=== PATIENT | female | born 1935 | race Caucasian/White ===

== ENCOUNTER → 2019-01-09 | Outpatient (CLI) | payer MEDICARE ==
--- NOTE | 2019-01-09 14:57 | CT ---
EXAMINATION TYPE: CT ChestAbdPelvis w con DATE OF EXAM: 01/09/2019 COMPARISON: CT abdomen and pelvis July 22, 2009 attempted though skip imaging is noted making susana rison difficult. HISTORY: Pleural scarring. Abdominal pain. 50lb weight loss. CT DLP: 808 mGycm. Automated Exposure Control for Dose Reduction was Utilized. CONTRAST: CT scan of the thorax, abdomen and pelvis is performed with IV Contrast, patient injected with 80 mL of Isovue 300. FINDINGS: LUNGS: There is bibasilar linear scarring and/or atelectasis, left basilar findings improved from philip or study. There is thick walled cavitary left upper lobe lesion measuring 2.5 x 2.3 cm axial image 17 x 4.2 cm pericardial mention coronal image 46. Obxr-yl-vzzvffiu biapical pleural/parenchymal scarrin g is seen. No pleural effusion is noted bilaterally. MEDIASTINUM: There are no greater than 1 cm hilar or mediastinal lymph nodes. No pericardial effusi on is seen. Ascending aorta measures up to 4.3 cm in diameter axial image 34. Heart size is upper head its of normal. There is heterogeneous enlarged left thyroid with probable greater than 1 cm nodule ax ial image 10. Follow-up advised. OTHER: No additional significant abnormality is seen. LIVER/GB: No significant abnormality is appreciated. PANCREAS: No significant abnormality is seen. SPLEEN: No significant abnormality is seen. ADRENALS: No significant abnormality is seen. KIDNEYS: Their symmetric cortical medullary uptake and excretion from both kidneys but moderate to se yodit right-sided hydronephrosis due to obstructing mid to distal ureter 6 mm calculus axial image 93. There is additional linear 5 mm calculus lower pole right kidney anteriorly axial image 30. No left- sided renal calculi or hydronephrosis. There is simple appearing 1 cm cyst laterally midpole of the l eft kidney axial image 26 series 7. BOWEL: Oral contrast reaches level of transverse colon. There is no suspicious small or large bowel dilatation. Diverticula in the sigmoid colon are present. No CT evidence for acute diverticulitis. GENITAL ORGANS: Uterus is surgically absent or markedly atrophic. LYMPH NODES: No greater than 1cm abdominal or pelvic lymph nodes are appreciated. OSSEOUS STRUCTURES: S-shaped scoliosis is present. OTHER: [id number]-vc-[id number] calcified plaque of aorta extends into branch vessels. There is grade 1 retro listhesis L2 on L3. There is inferior disc extrusion L2-L3 level extending to mid L3 vertebral body l evel sagittal image 53. There is grade 1 anterolisthesis of L5 on S1 with bilateral pars defect L5 le luis fernando noted. IMPRESSION: 1. There is 6 mm obstructing mid to distal right ureter calculus causing moderate to severe right-oscar ed hydronephrosis but no delayed excretion. Advise urology referral. 2. Thick-walled cavitary 4.2 cm lesion left upper lobe. Differential includes infectious process or p ulmonary abscess. Differential also includes neoplasm such as squamous cell carcinoma or metastatic d isease. Other etiologies not excluded. Strict clinical correlation advised. 3. Suspicious greater than 1 cm left thyroid nodule, advise thyroid ultrasound to further evaluate an d characterize. 4. There is 4.3 cm aneurysm of ascending aorta.
== END | disposition home or self-care (01) ==
LOC: RADCTMAIN 12:35
PROVIDERS: ATTEND Family Medicine
DX: N13.2 Hydronephrosis with renal and ureteral calculous obstruction (principal); I71.4 Abdominal aortic aneurysm, without rupture
CPT/HCPCS: 82565; 84520; 71260; 74177; 36415; Q9967

== ENCOUNTER 2019-02-02 07:19 | Day surgery (SDC) | payer MEDICARE ==
[2019-01-29 10:52] VITALS: BMI 18.7
[~2019-02-02 07:19] MED LIST: LACTATED RINGERS 1,000 ML IV SCH; LIDOCAINE 1% 20 ML VIAL (10MG/ML) FOR IV START INTRADERMA PRN
[2019-02-02 07:58] VITALS: TEMP 97.9
[2019-02-02] MEDS ORDERED: PROPOFOL 10 MG/ML 20 ML VIAL IV ONE (09:01)
[2019-02-02] MEDS ORDERED: LIDOCAINE 1% INJ 10MG/ML (20 ML MDV) ONE (09:01)
--- NOTE | 2019-02-02 09:36 | P.PCN ---
Date of Procedure: 02/02/19 Procedure(s) Performed: Procedure: Esophagogastroduodenoscopy and biopsy. Preoperative diagnosis: Epigastric pain and dysphagia. Postoperative diagnosis: 1. Small sliding hiatal hernia with no obvious esophagitis or complicated reflux disease. 2. Mild gastritis and duodenitis. 3. Multiple biopsies obtained from the duodenum, antrum and esophagus. Preparation sedation: Was provided by anesthesia. Brief clinical history: The patient is an 83-year-old female who was evaluated in the office earlier this month regarding postprandial abdominal pains and abnormal weight loss. The patient has history of rectal bleeding and her last colonoscopy was in July 2016 that showed sigmoid diverticulosis and internal hemorrhoids. She had history of COPD and her symptoms have been worse lately. She had pneumonia last summer and since then she said she has no appetite and has been complaining of pain in her abdomen. No difficulty swallowing but does not eat because it could cause of pain in her stomach. Having less frequent bowel movements due to decreased oral intake. CT of the abdomen was done last month that showed a 4.3 cm ascending aortic aneurysm, left thyroid nodule, left side 4.2 cm thick wall upper lobe lung cavitary lesion and right sided 6 mm ureteral stone and moderate to severe hydronephrosis. This evaluation is to assess for upper GI pathology. Procedure: With the patient on her left lateral decubitus position and after informed consent and adequate sedation, I passed the Olympus-GIF H190 video upper endoscope through the cricopharyngeus down the esophagus. GE junction was at 40 cm from the incisors and there was a small sliding hiatal hernia but no obvious esophagitis or complicated reflux disease. The endoscope was then passed into the stomach which was insufflated with air and inspected in detail including the retroflex view in the cardia. There was some mottling and erythema in the antrum but no ulcers or erosions. Pyloric channel did not show any ulcers. Duodenal bulb, post bulbar area and descending duodenum showed some erythema and minimal friability. I obtained biopsies from the duodenum, antrum and esophagus then the endoscope was withdrawn. The patient tolerated the procedure well. Plan: The patient was reassured. Will await biopsy results and make further plans based on her course and biopsy results. She is following with you with this week regarding the CT findings. We will make further plans based on her biopsy results as well.
[2019-02-02 09:38] VITALS: RESP 18
[2019-02-02 09:39] VITALS: BP 131/79; PULSE 71
== END 2019-02-02 10:15 | disposition home or self-care (01) ==
LOC: ORWHC2ENDO 07:19
DX: K29.80 Duodenitis without bleeding (principal); K21.0 Gastro-esophageal reflux disease with esophagitis; K31.9 Disease of stomach and duodenum, unspecified; K44.9 Diaphragmatic hernia without obstruction or gangrene; R63.4 Abnormal weight loss; I71.2 Thoracic aortic aneurysm, without rupture; N13.2 Hydronephrosis with renal and ureteral calculous obstruction; J45.909 Unspecified asthma, uncomplicated; R63.0 Anorexia; Z68.1 Body mass index [BMI] 19.9 or less, adult; I10 Essential (primary) hypertension; E78.5 Hyperlipidemia, unspecified; R06.09 Other forms of dyspnea; K57.30 Diverticulosis of large intestine without perforation or abscess without bleeding; K64.8 Other hemorrhoids; Z79.51 Long term (current) use of inhaled steroids; Z79.899 Other long term (current) drug therapy
CPT/HCPCS: 88305; 43239; J2001; J2704

== ENCOUNTER → 2019-03-23 | Outpatient (CLI) | payer MEDICARE ==
--- NOTE | 2019-03-24 03:29 | CT ---
EXAMINATION TYPE: CT chest w con DATE OF EXAM: 03/23/2019 COMPARISON: 01/09/2019 and 11/12/2006 HISTORY: 83-year-old female nonspecific abnormal finding of lung field, Shortness of breath. TECHNIQUE: Contiguous axial scanning of the chest after the administration of 80ml mL of Isovue 300. Coronal/sagittal reconstructions performed. CT DLP: 112.3mGycm. Automatic exposure control utilized for a dose reduction. FINDINGS: Heterogeneously enhancing left thyroid lobe nodule seems slightly larger now measuring 2.5 cm versus 2.3 cm on 01/09/2019. Thyroid ultrasound recommended to further evaluate. Heart upper limits of normal in size without pericardial effusion. Redemonstrated ascending aortic aneurysm of 4.3 cm. Consistent shortness of branching anatomy. No thoracic lymphadenopathy by CT size criteria. Redemonstrated pleural parenchymal scarring along the posterior aspect of the upper lobes. At the site of previous cavitary change peripheral left upper lobe, there is residual spiculated and bandlike thickening measuring 1.8 x 0.9 cm more superiorly, axial image 13 (versus 2.3 x 1.2 cm, prev iously) and 1.4 x 1.2 cm more inferiorly at the site of previous cavity (versus 2.5 x 2.3 cm, previou sly). Scattered tiny 3 to 4 mm pulmonary nodules are present in the mid lungs, on the left on image 27, 30, and 36 and on the right on images 32 and 33. Mild to moderate mid and lower lung bronchial wall thickening. Stable bandlike areas of subpleural scarring in the lower lobes. No pleural effusion or new consolida tion. Visualized upper abdomen shows interval resolution of the previously seen right-sided hydronephrosis. Bones: Dextroconvex scoliotic curvature of the thoracic spine. IMPRESSION: 1. Residual spiculated and bandlike thickening in the peripheral left upper lobe at the site of previ ous cavitary change. Given the overall decrease in size, residual scar is suspected. Additional 6 mon th follow-up recommended to reassess. 2. A few scattered new 3 and 4 mm mid lung pulmonary nodules may represent small infectious/inflammat ory foci. These should also be reassessed at the 6 month follow-up. 3. Slight enlargement of the solid nodule in the left thyroid lobe now measuring 2.5 cm. Dedicated th yroid ultrasound is advised. 4. Stable 4.3 cm ascending aortic aneurysm.
== END | disposition home or self-care (01) ==
LOC: RADCTMAIN 14:15
PROVIDERS: ATTEND Internal Medicine
DX: I71.2 Thoracic aortic aneurysm, without rupture (principal); R91.8 Other nonspecific abnormal finding of lung field
CPT/HCPCS: 82565; 84520; 71260; 36415; Q9967

== ENCOUNTER → 2019-04-01 | Outpatient (CLI) | payer MEDICARE ==
--- NOTE | 2019-04-01 08:43 | US ---
EXAMINATION TYPE: US thyroid st tissue head/neck DATE OF EXAM: 04/01/2019 COMPARISON: CLINICAL HISTORY: E04.[address] showed thyroid nodule. No previous ultrasound of thyroid GLAND SIZE: Right Lobe: 4.3 x 1.4 x 2.2 cm Overall Parenchyma: heterogenous Left Lobe: 4.2 x 2.8 x 2.8 cm Overall Parenchyma: homogeneous Isthmus Thickness: 0.3 cm NODULES RIGHT: # of nodules measured on right: 2-- Multiple subcentimeter nodules seen. Largest measured. 1. 0.7 X 0.7 x 0.6 cm hypoechoic solid nodule at the mid pole with well-defined margins. This nodu le is wider than tall and shows intranodular vascularity. Prior size: No prior 2. 0.8 X 0.7 x 0.7 cm isoechoic solid nodule at the lower pole with well-defined margins. This nodu le is tall as wide and shows no intranodular vascularity. Prior size: No prior LEFT: # of nodules measured on left: 1 1. 3.0 X 2.5 x 2.6 cm solid nodule at the mid pole with well-defined margins. This nodule is talle r than wide and shows intranodular vascularity. No prior ISTHMUS: # of nodules measured in the isthmus: 0 Bilateral neck scanned, no evidence of lymphadenopathy. IMPRESSION: Heterogeneous thyroid tissue suggestive of thyroiditis. Dominant 3 cm left thyroid nodule noted.
== END | disposition home or self-care (01) ==
LOC: RADUSWWP 07:50
PROVIDERS: ATTEND Internal Medicine
DX: E04.1 Nontoxic single thyroid nodule (principal)
CPT/HCPCS: 76536

== ENCOUNTER → 2019-05-14 | Outpatient (CLI) | payer MEDICARE ==
[2019-05-14 09:59] LABS: HCT 38.2 % (34.0-46.0); HGB 12.3 gm/dL (11.4-16.0); MCH 29.8 pg (25.0-35.0); MCHC 32.3 g/dL (31.0-37.0); MCV 92.3 fL (80.0-100.0); Mean Platelet Volume 6.9; Platelet Count 281 k/uL (150-450); RBC 4.14 m/uL (3.80-5.40); RDW 14.5 % (11.5-15.5); WBC 6.7 k/uL (3.8-10.6)
[2019-05-14 16:11] LABS: African American GFR (CKD) 80.1 (60.0-200.0); Albumin 3.6 g/dL (3.80-4.90); Albumin/Globulin Ratio 1.89 (1.60-3.17); Anion Gap 8.8 mmol/L (4.00-12.00); BUN/Creat Ratio 26.25 Ratio (12.00-20.00); Carbon Dioxide 26.2 mmol/L (21.6-31.8); Globulin 1.9 g/dL (1.6-3.3); Non-African American GFR(CKD) 69.1 (60.0-200.0); Potassium 4.1 mmol/L (3.5-5.5); Total Bilirubin 0.4 mg/dL (0.2-1.2); Total Protein 5.5 g/dL (6.2-8.2)
[2019-05-14 18:41] LABS: ACTH 19.3 pg/mL (0.00-45.99)
== END | disposition home or self-care (01) ==
LOC: LABWHC1 09:17
PROVIDERS: ATTEND Internal Medicine Endocrinology, Diabetes & Metabolism
DX: N20.0 Calculus of kidney (principal); R63.4 Abnormal weight loss
CPT/HCPCS: 36415; 80053; 82024; 82533; 82607; 83970; 84439; 84443; 84445; 84480; 85027

== ENCOUNTER 2020-11-21 14:02 | Observation (INO) | payer MEDICARE ==
[2020-11-21] MEDS ORDERED: SODIUM CHLORIDE 0.9% 1,000 ML IV STA ×2 (14:12)
[2020-11-21] MEDS ORDERED: MAGNESIUM SULFATE-D5W PMX 1 GM in DEXTROSE/WATER 1 100ML.BAG IVPB STA (14:12)
[2020-11-21] MEDS ORDERED: IPRATROPIUM-ALBUTEROL 3 ML NEB INHALATION STA (14:12)
[2020-11-21] MEDS ORDERED: methylPREDNISolone SOD SUCCI 125 MG/2 ML VIAL IV STA (14:12)
--- NOTE | 2020-11-21 14:27 | ED ---
SOB HPI - General Chief Complaint: Shortness of Breath Stated Complaint: SOB Time Seen by Provider: 11/21/20 14:02 Source: patient, RN notes reviewed Mode of arrival: EMS Limitations: no limitations - History of Present Illness Initial Comments: This is a 85-year-old female with a history of asthma who presents by EMS with complaints of shortness breath or past 4 days. Is getting progressively worse not better similar exertional dyspnea he states his neck a any benefit from her home medication. No overt chest pain she's had decreased oral intake. She has had no overt fevers chills or sweats. MD Complaint: shortness of breath - Related Data Home Medications Medication Instructions Recorded Confirmed Ipratropium-Albuterol Nebulize 3 ml INHALATION RT-QID 11/21/20 11/21/20 [Duoneb 0.5 mg-3 mg/3 ml Soln] Allergies Allergy/AdvReac Type Severity Reaction Status Date / Time No Known Allergies Allergy Verified 11/21/20 16:19 Review of Systems ROS Statement: Those systems with pertinent positive or pertinent negative responses have been documented in the HPI. ROS Other: All systems not noted in ROS Statement are negative. Past Medical History Past Medical History: Asthma, GERD/Reflux, Hyperlipidemia, Hypertension, Pneumonia Additional Past Medical History / Comment(s): states pneumonia May 2018 and had 6 falls since then (states legs just gave out), SOB with activity, Hx of kidney stone, states weight loss due to stomach pain- which has improved. , pt states she stopped all her medications 3 months ago except her inhaler and updraft tx., states she told Dr. Lainez -she is unsure if he heard her -encouraged to call Dr. Lainez to see if she should restart her meds. History of Any Multi-Drug Resistant Organisms: None Reported Past Surgical History: Hysterectomy Past Anesthesia/Blood Transfusion Reactions: No Reported Reaction Past Psychological History: No Psychological Hx Reported Smoking Status: Never smoker Past Alcohol Use History: None Reported Past Drug Use History: None Reported - Past Family History Mother Family Medical History: No Reported History General Exam - General Exam Comments Initial Comments: This is a well-developed well-nourished awake alert oriented 3 female Limitations: no limitations General appearance: alert, anxious, in distress Head exam: Present: atraumatic, normocephalic, normal inspection Eye exam: Present: normal appearance, PERRL, EOMI. Absent: scleral icterus, conjunctival injection, periorbital swelling ENT exam: Present: mucous membranes dry Neck exam: Present: normal inspection, full ROM, other. Absent: tenderness, meningismus, lymphadenopathy Respiratory exam: Present: wheezes, accessory muscle use, decreased breath sounds. Absent: respiratory distress, rales, rhonchi, stridor Cardiovascular Exam: Present: regular rate, normal rhythm, normal heart sounds. Absent: systolic murmur, diastolic murmur, rubs, gallop, clicks GI/Abdominal exam: Present: soft, normal bowel sounds. Absent: distended, tenderness, guarding, rebound, rigid Extremities exam: Present: normal inspection, full ROM, normal capillary refill. Absent: tenderness, pedal edema, joint swelling, calf tenderness Back exam: Present: normal inspection Neurological exam: Present: alert, oriented X3, CN II-XII intact Psychiatric exam: Present: normal affect, normal mood Skin exam: Present: warm, dry, intact, normal color. Absent: rash Course Vital Signs 11/21/20 11/21/20 11/21/20 14:07 14:51 15:00 Temperature 98.2 F Pulse Rate 94 92 90 Respiratory 26 H 28 H Rate Blood Pressure 132/70 115/87 O2 Sat by Pulse 94 L 100 Oximetry 11/21/20 11/21/20 11/21/20 15:04 15:30 16:00 Temperature Pulse Rate 93 99 92 Respiratory 26 H 26 H Rate Blood Pressure 119/66 119/66 O2 Sat by Pulse 99 100 Oximetry 11/21/20 17:00 Temperature 98.2 F Pulse Rate 105 H Respiratory 22 Rate Blood Pressure 125/56 O2 Sat by Pulse 97 Oximetry Medical Decision Making - Medical Decision Making Patient still has some complaints of shortness of breath the x-ray was negative for acute findings the CAT scan was equivocal at did discuss the case with radiologist there is poor visualization of left upper lobe PE Ruled out though it may be artifact. I did discuss this with Dr. Camargo patient will have a ultrasound of the lower extremities done. I did inform her of the possibility of PE. Patient be admitted with inpatient treatment for COPD exacerbation. - Lab Data Result diagrams: 11/21/20 14:37 11/21/20 14:37 Lab Results 11/21/20 11/21/20 11/21/20 Range/Units 14:37 14:37 14:37 WBC 7.4 (3.8-10.6) k/uL RBC 5.04 (3.80-5.40) m/uL Hgb 15.5 (11.4-16.0) gm/dL Hct 44.8 (34.0-46.0) % MCV 88.8 (80.0-100.0) fL MCH 30.7 (25.0-35.0) pg MCHC 34.6 (31.0-37.0) g/dL RDW 13.8 (11.5-15.5) % Plt Count 260 (150-450) k/uL MPV 7.8 Neutrophils % 78 % Lymphocytes % 13 % Monocytes % 5 % Eosinophils % 3 % Basophils % 1 % Neutrophils # 5.7 (1.3-7.7) k/uL Lymphocytes # 1.0 (1.0-4.8) k/uL Monocytes # 0.4 (0-1.0) k/uL Eosinophils # 0.2 (0-0.7) k/uL Basophils # 0.0 (0-0.2) k/uL PT 10.5 (9.0-12.0) sec INR 1.0 (<1.2) APTT 22.0 (22.0-30.0) sec D-Dimer 0.62 H (<0.60) mg/L FEU Sodium 138 (137-145) mmol/L Potassium 4.3 (3.5-5.1) mmol/L Chloride 104 (98-107) mmol/L Carbon Dioxide 23 (22-30) mmol/L Anion Gap 11 mmol/L BUN 18 H (7-17) mg/dL Creatinine 0.77 (0.52-1.04) mg/dL Est GFR (CKD-EPI)AfAm 83 (>60 ml/min/1.73 sqM) Est GFR (CKD-EPI)NonAf 72 (>60 ml/min/1.73 sqM) Glucose 106 H (74-99) mg/dL Lactic Ac Sepsis Rflx Plasma Lactic Acid Jhonathan (0.7-2.0) mmol/L Calcium 9.9 (8.4-10.2) mg/dL Magnesium 1.8 (1.6-2.3) mg/dL Total Bilirubin 1.0 (0.2-1.3) mg/dL AST 23 (14-36) U/L ALT 10 (4-34) U/L Alkaline Phosphatase 71 (38-126) U/L Creatine Kinase 90 (30-135) U/L Troponin I (0.000-0.034) ng/mL NT-Pro-B Natriuret Pep pg/mL Total Protein 7.0 (6.3-8.2) g/dL Albumin 4.2 (3.5-5.0) g/dL Influenza Type A (PCR) (Not Detectd) Influenza Type B (PCR) (Not Detectd) RSV (PCR) (Not Detectd) SARS-CoV-2 (PCR) (Not Detectd) 11/21/20 11/21/20 11/21/20 Range/Units 14:37 14:37 14:37 WBC (3.8-10.6) k/uL RBC (3.80-5.40) m/uL Hgb (11.4-16.0) gm/dL Hct (34.0-46.0) % MCV (80.0-100.0) fL MCH (25.0-35.0) pg MCHC (31.0-37.0) g/dL RDW (11.5-15.5) % Plt Count (150-450) k/uL MPV Neutrophils % % Lymphocytes % % Monocytes % % Eosinophils % % Basophils % % Neutrophils # (1.3-7.7) k/uL Lymphocytes # (1.0-4.8) k/uL Monocytes # (0-1.0) k/uL Eosinophils # (0-0.7) k/uL Basophils # (0-0.2) k/uL PT (9.0-12.0) sec INR (<1.2) APTT (22.0-30.0) sec D-Dimer (<0.60) mg/L FEU Sodium (137-145) mmol/L Potassium (3.5-5.1) mmol/L Chloride (98-107) mmol/L Carbon Dioxide (22-30) mmol/L Anion Gap mmol/L BUN (7-17) mg/dL Creatinine (0.52-1.04) mg/dL Est GFR (CKD-EPI)AfAm (>60 ml/min/1.73 sqM) Est GFR (CKD-EPI)NonAf (>60 ml/min/1.73 sqM) Glucose (74-99) mg/dL Lactic Ac Sepsis Rflx Plasma Lactic Acid Jhonathan 2.1 H* (0.7-2.0) mmol/L Calcium (8.4-10.2) mg/dL Magnesium (1.6-2.3) mg/dL Total Bilirubin (0.2-1.3) mg/dL AST (14-36) U/L ALT (4-34) U/L Alkaline Phosphatase (38-126) U/L Creatine Kinase (30-135) U/L Troponin I <0.012 (0.000-0.034) ng/mL NT-Pro-B Natriuret Pep 411 pg/mL Total Protein (6.3-8.2) g/dL Albumin (3.5-5.0) g/dL Influenza Type A (PCR) (Not Detectd) Influenza Type B (PCR) (Not Detectd) RSV (PCR) (Not Detectd) SARS-CoV-2 (PCR) (Not Detectd) 11/21/20 11/21/20 Range/Units 14:37 15:14 WBC (3.8-10.6) k/uL RBC (3.80-5.40) m/uL Hgb (11.4-16.0) gm/dL Hct (34.0-46.0) % MCV (80.0-100.0) fL MCH (25.0-35.0) pg MCHC (31.0-37.0) g/dL RDW (11.5-15.5) % Plt Count (150-450) k/uL MPV Neutrophils % % Lymphocytes % % Monocytes % % Eosinophils % % Basophils % % Neutrophils # (1.3-7.7) k/uL Lymphocytes # (1.0-4.8) k/uL Monocytes # (0-1.0) k/uL Eosinophils # (0-0.7) k/uL Basophils # (0-0.2) k/uL PT (9.0-12.0) sec INR (<1.2) APTT (22.0-30.0) sec D-Dimer (<0.60) mg/L FEU Sodium (137-145) mmol/L Potassium (3.5-5.1) mmol/L Chloride (98-107) mmol/L Carbon Dioxide (22-30) mmol/L Anion Gap mmol/L BUN (7-17) mg/dL Creatinine (0.52-1.04) mg/dL Est GFR (CKD-EPI)AfAm (>60 ml/min/1.73 sqM) Est GFR (CKD-EPI)NonAf (>60 ml/min/1.73 sqM) Glucose (74-99) mg/dL Lactic Ac Sepsis Rflx Y Plasma Lactic Acid Jhonathan (0.7-2.0) mmol/L Calcium (8.4-10.2) mg/dL Magnesium (1.6-2.3) mg/dL Total Bilirubin (0.2-1.3) mg/dL AST (14-36) U/L ALT (4-34) U/L Alkaline Phosphatase (38-126) U/L Creatine Kinase (30-135) U/L Troponin I (0.000-0.034) ng/mL NT-Pro-B Natriuret Pep pg/mL Total Protein (6.3-8.2) g/dL Albumin (3.5-5.0) g/dL Influenza Type A (PCR) Not Detected (Not Detectd) Influenza Type B (PCR) Not Detected (Not Detectd) RSV (PCR) Not Detected (Not Detectd) SARS-CoV-2 (PCR) Not Detected (Not Detectd) - EKG Data -: EKG Interpreted by Me EKG Comments: Sinus rhythm with PACs rate 86. Interval 184 QRS duration 78 QT since QTC 42/41 left anterior fascicular block no acute ST-T wave changes. - Radiology Data Radiology results: report reviewed (I did review the imaging and report no definite evidence of acute findings on the x-ray.), image reviewed Disposition Clinical Impression: Acute exacerbation of chronic obstructive pulmonary disease Disposition: ADMITTED IP TO THIS HOSP Condition: Fair Referrals: Chaitanya Lainez MD [Primary Care Provider] - 1-2 days
[2020-11-21 14:58] LABS: Albumin 4.2 g/dL (3.5-5.0); Calcium 9.9 mg/dL (8.4-10.2); Magnesium 1.8 mg/dL (1.6-2.3); Potassium 4.3 mmol/L (3.5-5.1)
[2020-11-21 15:04] LABS: Basophils % (A) 1 %; Eosinophils # (A) 0.2 k/uL (0-0.7); Eosinophils % (A) 3 %; HCT 44.8 % (34.0-46.0); HGB 15.5 gm/dL (11.4-16.0); Lymphocytes % (A) 13 %; MCH 30.7 pg (25.0-35.0); MCHC 34.6 g/dL (31.0-37.0); MCV 88.8 fL (80.0-100.0); Mean Platelet Volume 7.8; Monocytes # (A) 0.4 k/uL (0-1.0); Monocytes % (A) 5 %; Neutrophils # (A) 5.7 k/uL (1.3-7.7); Neutrophils % (A) 78 %; Platelet Count 260 k/uL (150-450); RBC 5.04 m/uL (3.80-5.40); RDW 13.8 % (11.5-15.5); WBC 7.4 k/uL (3.8-10.6)
[2020-11-21 15:12] LABS: Prothrombin Time 10.5 sec (9.0-12.0)
[2020-11-21 15:17] LABS: D-Dimer 0.62 mg/L FEU (<0.60)
--- NOTE | 2020-11-21 15:21 | XR ---
EXAMINATION TYPE: XR chest 2V DATE OF EXAM: 11/21/2020 COMPARISON: NONE HISTORY: Shortness of breath TECHNIQUE: Frontal and lateral views of the chest are obtained. FINDINGS: December 02, 2019 Scattered senescent parenchymal changes noted. Hyperinflation compatible with COPD. No evidence for infiltrate. No evidence for atelectasis. Pleural parenchymal reaction seen at the steve ateral lung bases without infiltrate. Heart size is stable. Mediastinal structures are stable and grossly unremarkable. No evidence for hilar prominence. Degenerative changes dorsal spine. IMPRESSION: 1. No evidence for acute pulmonary disease.
[2020-11-21] MEDS ORDERED: LORazepam 2 MG/ML INJ IV STA (16:06)
--- NOTE | 2020-11-21 17:24 | CT ---
EXAMINATION TYPE: CT angio chest DATE OF EXAM: 11/21/2020 4:52 PM COMPARISON: Same day radiograph. CT 03/23/2019. HISTORY: elevated d dimer CT DLP: 236.5 mGycm Automated exposure control for dose reduction was used. CONTRAST: CTA scan of the thorax is performed with IV Contrast, patient injected with 84 mL of Isovue 370, pulm onary embolism protocol. MIP images are created and reviewed. FINDINGS: LUNGS: There are bilateral scattered small nodular opacities. There is no pleural effusion or pneum othorax seen. The tracheobronchial tree is patent. MEDIASTINUM: There is absent contrast opacification of the anterior left upper lobe pulmonary arterie s. The remainder of the bilateral pulmonary arteries are adequately opacified without evidence of emb robyn. There is ectasia of the ascending aorta, measuring up to 4.1 cm. There are no greater than 1 cm hilar or mediastinal lymph nodes. No pericardial effusion is seen. OTHER: Multiple thyroid nodules seen. Otherwise no additional significant abnormality is seen. IMPRESSION: ABSENT CONTRAST OPACIFICATION OF THE ANTERIOR LEFT UPPER LOBE PULMONARY ARTERIES WITH ATYPICAL PATTER N. FINDINGS MAY REPRESENT ARTIFACT VERSUS POSSIBLE CENTRAL PE. RECOMMEND REPEAT CTA STUDY FOR CONFIRM ATION. NONSPECIFIC BILATERAL SCATTERED SMALL NODULAR OPACITIES, WHICH MAY BE CHRONIC. ATTENTION ON FOLLOW-UP . FINDINGS WERE REPORTED TO DR. CORTEZ BY ME AT TIME OF DICTATION. Thyroid nodule, for which further evaluation with nonemergent, outpatient ultrasound may be obtained as indicated. Ascending aorta ectasia.
--- NOTE | 2020-11-21 19:35 | US ---
EXAMINATION TYPE: US venous doppler duplex LE DATE OF EXAM: 11/21/2020 7:17 PM COMPARISON: NONE CLINICAL HISTORY: Elevated d-dimer, calf pain, shortness of breath. Elevated D Dimer, calf pain, shor tness of breath. Poor historian. SIDE PERFORMED: Bilateral TECHNIQUE: The lower extremity deep venous system is examined utilizing real time linear array sonog kathleen with graded compression, doppler sonography and color-flow sonography. VESSELS IMAGED: Common Femoral Vein Deep Femoral Vein Greater Saphenous Vein * Femoral Vein Popliteal Vein Small Saphenous Vein * Proximal Calf Veins (* superficial vessels) Right Leg: No evidence of DVT in veins imaged at this time from prox calf veins to CFV/GSV. Left Leg: There appears to be a color defect and lack of color flow in portions of the femoral vein and the popliteal vein. Femoral vein appears to be very thin. The femoral vein and popliteal vein nirav ear to compress incompletely in some segments. IMPRESSION: Concern for nonocclusive thrombus within the left superficial femoral and popliteal veins. No evidence of DVT in the right lower extremity.
[2020-11-21] MEDS: SODIUM CHLORIDE 0.9% 1,000 ML IV SCH (19:48)
[2020-11-21] MEDS ORDERED: IPRATROPIUM-ALBUTEROL 3 ML NEB INHALATION SCH (20:00)
[2020-11-21] MEDS: methylPREDNISolone SOD SUCCI 125 MG/2 ML VIAL IV SCH (23:25)
[2020-11-21] MEDS ORDERED: IPRATROPIUM-ALBUTEROL 3 ML NEB INHALATION PRN (23:57)
[2020-11-22] MEDS: SODIUM CHLORIDE 0.9% 1,000 ML IV SCH (03:53)
[2020-11-22] MEDS: methylPREDNISolone SOD SUCCI 125 MG/2 ML VIAL IV SCH ×2 (05:46→11:21)
[2020-11-22] MEDS: IPRATROPIUM-ALBUTEROL 3 ML NEB INHALATION SCH ×2 (07:15→11:00)
[2020-11-22] MEDS ORDERED: ENOXAPARIN 60 MG/0.6 ML SYRINGE SQ STA (11:45)
[2020-11-22] MEDS ORDERED: LORATADINE-PSEUDOEPH 5-120 MG 1 EACH TAB.ER.12H PO SCH (12:00)
--- NOTE | 2020-11-22 13:07 | P.CNPUL ---
History of Present Illness Consult date: 11/22/20 Reason for consult: dyspnea History of present illness: 85-year-old female patient came into the emergency department yesterday because of history of shortness of breath. The patient was progressively getting worse and for that reason she decided to come into the hospital. No chest pain. No fever. No chills. No sweats. The patient has severe COPD and she has had multiple episodes of COPD exacerbation. She is known to have coronary artery disease and hyperlipidemia. She also has been followed up through our office for a pulmonary nodule. CT chest was done in March 2019 showing residual spiculated peripheral left upper lobe had site of previous cavitary and no biopsy was performed and this was being monitored in the office on outpatient basis. Pre- bronchodilation therapy bronchodilation FEV1 is in order of 67% of predicted In the ED, the patient's COVID 19 testing came back negative. A chest x-ray was done and a chest x-ray showed no acute abnormalities. Subsequently, the patient was given a CT angiogram nodular opacities. At the same time there was absence contrast and anterior left upper lobe pulmonary artery and this obviously raises the concern for pulmonary embolism. The Doppler of the lower extremities showed no evidence of DVT on the right, the left leg appeared to have a defect and portions of the femoral vein and in the vein. The femoral vein appears to be very thin. The femoral vein and popliteal vein appeared to be incomplete compressible the potential femoral and popliteal veins. Review of Systems Constitutional: Denies chills, Denies fever Eyes: denies as per HPI, denies blurred vision, denies bulging eye, denies decreased vision, denies diplopia, denies discharge, denies dry eye, denies irritation, denies itching, denies pain, denies photophobia, denies loss of peripheral vision, denies loss of vision, denies tunnel vision/blind spots Ears: deny: decreased hearing, ear discharge, earache, tinnitus Ears, nose, mouth and throat: Reports as per HPI Breasts: absent: as per HPI, change in shape, gynecomastia, masses, nipple discharge, pain, skin changes, swelling Cardiovascular: Reports decreased exercise tolerance Respiratory: Reports dyspnea Gastrointestinal: Reports as per HPI Genitourinary: Reports as per HPI Menstruation: Reports as per HPI Musculoskeletal: Reports as per HPI Musculoskeletal: absent: ankle pain, ankle stiffness, ankle swelling Integumentary: Reports as per HPI Neurological: Reports as per HPI Psychiatric: Reports as per HPI Endocrine: Reports as per HPI Hematologic/Lymphatic: Reports as per HPI Allergic/Immunologic: Reports as per HPI Past Medical History Past Medical History: Asthma, COPD, GERD/Reflux, Hyperlipidemia, Hypertension, Pneumonia (Venous history of pneumonia from May 2018) Additional Past Medical History / Comment(s): Thyroid nodule, abdominal aortic aneurysm, COPD, nephrolithiasis, COPD/asthma, hypertension, acid reflux History of Any Multi-Drug Resistant Organisms: None Reported Past Surgical History: Hysterectomy Past Anesthesia/Blood Transfusion Reactions: No Reported Reaction Past Psychological History: No Psychological Hx Reported Smoking Status: Never smoker Past Alcohol Use History: None Reported Past Drug Use History: None Reported - Past Family History Mother Family Medical History: No Reported History Medications and Allergies Home Medications Medication Instructions Recorded Confirmed Type Budesonide-Formot 160-4.5 Mcg 1 puff INHALATION BID #1 inhaler 11/22/20 Rx [Symbicort 160-4.5 Mcg Inhaler] Ipratropium-Albuterol Nebulize 3 ml INHALATION RT-QID #120 neb 11/22/20 Rx [Duoneb 0.5 mg-3 mg/3 ml Soln] Loratadine-Pseudoeph 5-120 mg 1 tab PO Q12HR #10 tab 11/22/20 Rx [Claritin-D 12 Hour] Rivaroxaban [Xarelto Starter Pack] 0 mg PO DIRECTED 30 Days #1 pack 11/22/20 Rx predniSONE 10 mg PO DAILY #30 tab 11/22/20 Rx Allergies Allergy/AdvReac Type Severity Reaction Status Date / Time No Known Allergies Allergy Verified 11/21/20 16:19 Physical Exam Vitals: Vital Signs Temp Pulse Pulse Resp BP BP Pulse Ox 11/22/20 11:11 90 11/22/20 11:00 88 11/22/20 07:26 97.4 F L 91 14 133/78 97 11/22/20 07:25 90 11/22/20 07:15 90 97 11/22/20 02:00 98 F 88 17 118/76 96 11/22/20 01:25 85 18 11/21/20 20:00 98 F 89 18 117/71 97 11/21/20 18:32 98 F 89 18 117/71 97 11/21/20 18:00 98 F 101 H 22 126/89 95 11/21/20 17:00 98.2 F 105 H 22 125/56 97 11/21/20 16:00 92 26 H 119/66 100 11/21/20 15:30 99 26 H 119/66 99 11/21/20 15:04 93 11/21/20 15:00 90 28 H 115/87 100 11/21/20 14:51 92 11/21/20 14:07 98.2 F 94 26 H 132/70 94 L Intake and Output 11/21/20 11/22/20 11/22/20 22:59 06:59 14:59 Intake Total 1340 800 Balance 1340 800 Intake: Intake, IV Titration 800 800 Amount Sodium Chloride 0.9% 1, 800 800 000 ml @ 100 mls/hr IV . Q10H [facility] Rx#:[id number] Oral 540 Other: Voiding Method Toilet Toilet # Voids 2 1 Weight 55.338 kg The patient appeared well nourished and normally developed. Vital signs as documented. Head exam is unremarkable. No scleral icterus or corneal arcus noted. Neck is without jugular venous distension, thyromegaly, or carotid bruits. Carotid upstrokes are brisk bilaterally. Lungs are clear to auscultation and percussion. Cardiac exam reveals the PMI to be normally sized and situated. Rhythm is regular. First and second heart sounds normal. No murmurs, rubs or gallops. Abdominal exam reveals normal bowel sounds, no masses, no organomegaly and no aortic enlargement. Extremities are nonedematous and both femoral and pedal pulses are normal.Examination of the skin revealed no evidence of significant rashes, suspicious appearing nevi or other concerning lesions.Neurologically, the patient is awake and alert and the patient does not have any focal neurological deficit. Cranial nerves are essentially intact. Results - Laboratory Findings CBC and BMP: 11/21/20 14:37 11/21/20 14:37 ABG WBC 7.4 k/uL (3.8-10.6) 11/21/20 14:37 RBC 5.04 m/uL (3.80-5.40) 11/21/20 14:37 Hgb 15.5 gm/dL (11.4-16.0) 11/21/20 14:37 Hct 44.8 % (34.0-46.0) 11/21/20 14:37 MCV 88.8 fL (80.0-100.0) 11/21/20 14:37 MCH 30.7 pg (25.0-35.0) 11/21/20 14:37 MCHC 34.6 g/dL (31.0-37.0) 11/21/20 14:37 RDW 13.8 % (11.5-15.5) 11/21/20 14:37 Plt Count 260 k/uL (150-450) 11/21/20 14:37 MPV 7.8 11/21/20 14:37 Neutrophils % 78 % 11/21/20 14:37 Lymphocytes % 13 % 11/21/20 14:37 Monocytes % 5 % 11/21/20 14:37 Eosinophils % 3 % 11/21/20 14:37 Basophils % 1 % 11/21/20 14:37 Neutrophils # 5.7 k/uL (1.3-7.7) 11/21/20 14:37 Lymphocytes # 1.0 k/uL (1.0-4.8) 11/21/20 14:37 Monocytes # 0.4 k/uL (0-1.0) 11/21/20 14:37 Eosinophils # 0.2 k/uL (0-0.7) 11/21/20 14:37 Basophils # 0.0 k/uL (0-0.2) 11/21/20 14:37 PT 10.5 sec (9.0-12.0) 11/21/20 14:37 INR 1.0 (<1.2) 11/21/20 14:37 APTT 22.0 sec (22.0-30.0) 11/21/20 14:37 D-Dimer 0.62 mg/L FEU (<0.60) H 11/21/20 14:37 Sodium 138 mmol/L (137-145) 11/21/20 14:37 Potassium 4.3 mmol/L (3.5-5.1) 11/21/20 14:37 Chloride 104 mmol/L (98-107) 11/21/20 14:37 Carbon Dioxide 23 mmol/L (22-30) 11/21/20 14:37 Anion Gap 11 mmol/L 11/21/20 14:37 BUN 18 mg/dL (7-17) H 11/21/20 14:37 Creatinine 0.77 mg/dL (0.52-1.04) 11/21/20 14:37 Est GFR (CKD-EPI)AfAm 83 (>60 ml/min/1.73 sqM) 11/21/20 14:37 Est GFR (CKD-EPI)NonAf 72 (>60 ml/min/1.73 sqM) 11/21/20 14:37 Glucose 106 mg/dL (74-99) H 11/21/20 14:37 Lactic Ac Sepsis Rflx Y 11/21/20 15:14 Plasma Lactic Acid Jhonathan 0.7 mmol/L (0.7-2.0) 11/21/20 18:09 Calcium 9.9 mg/dL (8.4-10.2) 11/21/20 14:37 Magnesium 1.8 mg/dL (1.6-2.3) 11/21/20 14:37 Total Bilirubin 1.0 mg/dL (0.2-1.3) 11/21/20 14:37 AST 23 U/L (14-36) 11/21/20 14:37 ALT 10 U/L (4-34) 11/21/20 14:37 Alkaline Phosphatase 71 U/L (38-126) 11/21/20 14:37 Creatine Kinase 90 U/L (30-135) 11/21/20 14:37 Troponin I <0.012 ng/mL (0.000-0.034) 11/21/20 14:37 NT-Pro-B Natriuret Pep 411 pg/mL 11/21/20 14:37 Total Protein 7.0 g/dL (6.3-8.2) 11/21/20 14:37 Albumin 4.2 g/dL (3.5-5.0) 11/21/20 14:37 Influenza Type A (PCR) Not Detected (Not Detectd) 11/21/20 14:37 Influenza Type B (PCR) Not Detected (Not Detectd) 11/21/20 14:37 RSV (PCR) Not Detected (Not Detectd) 11/21/20 14:37 SARS-CoV-2 (PCR) Not Detected (Not Detectd) 11/21/20 14:37 PT/INR, D-dimer PT 10.5 sec (9.0-12.0) 11/21/20 14:37 INR 1.0 (<1.2) 11/21/20 14:37 D-Dimer 0.62 mg/L FEU (<0.60) H 11/21/20 14:37 Abnormal lab findings: Abnormal Labs 11/21/20 11/21/20 11/21/20 14:37 14:37 14:37 D-Dimer 0.62 H BUN 18 H Glucose 106 H Plasma Lactic Acid Jhonathan 2.1 H* - Diagnostic Findings Chest x-ray: image reviewed CT scan - chest: image reviewed Assessment and Plan Plan: 1 questionable pulmonary embolism involving the left upper lobe pulmonary artery branch in addition to DVT involving the left superficial femoral and popliteal veins seem to be completely compressible on Doppler of the lower extremity. As such, there is an obvious consented for a thrombus within the left lower extremity and possible pulmonary embolism explaining the patient shortness of breath and the patient was started on anticoagulation. The patient is currently on Lovenox and this will be transitioned to Xarelto start this back. 2 COPD 3 chronic left upper lobe scar, nonmalignant 4 hypertension 5 hyperlipidemia 6 history of thyroid goiter/nodule 7 Nephrolithiasis 8 history of falls 9 acid reflux 10 History of pneumonia back in 2018 Plan Agree on the current management. Continue Xarelto per protocol for DVT and pulmonary embolism. Follow-up with Dr. Freitas in the office regarding her COPD and pulmonary embolism. CAT scan of the chest was reviewed. Hard to say if there is any underlying filling defect and left upper lobe although this is an obvious concern especially the patient has some clotting involving the superficial femoral and popliteal vein on the left. Again anticoagulation for now. Obtain an echocardiogram. ProBNP level is low. D-dimer level is low. We'll follow.
[2020-11-22 13:43] VITALS: BP 126/72; PULSE 104; RESP 17; TEMP 98.3
--- NOTE | 2020-11-22 23:11 | P.HPIM ---
History of Present Illness H&P Date: 11/22/20 Chief Complaint: Short of breath History of presenting complaint: This is a pleasant 84-year-old patient of Dr. lainez from [place]. Patient has not followed up with her personnel security assistant on her family doctor for quite some while. Chronic stable medical conditions include GERD, hyperlipidemia, hypertension, abdominal aortic aneurysm, kidney stones. Patient has progress ively been getting short of breath a few weeks. Increasing wheezing. Denies any fever and chills. Congested. Appetite has been okay. Started on bronchodilators in the ER. Computed tomography scan of the chest was possibly suggested of a PE. Doppler ultrasound was suggestive of DVT in the popliteal vein. Patient did receive Lovenox.. Patient's wheezing is somewhat better this morning. Patient does have nasal congestion. Review of systems: GEN.: Tired EYES: None HEENT: Nasal congestion NECK: None RESPIRATORY: As above CARDIOVASCULAR: None GASTROINTESTINAL: None GENITOURINARY: None MUSCULOSKELETAL: Some joint pains LYMPHATICS: None HEMATOLOGICAL: None PSYCHIATRY: None NEUROLOGICAL: None Past medical history to include: Asthma, GERD, hyperlipidemia, hypertension, thyroid nodule, abdominal aortic aneurysm, kidney stones, Social history: Lives with her . No history of alcohol or smoking. Family history: Reviewed, noncontributory to presentation Physical examination: VITAL SIGNS: 98.2, 94, 26, 132/70, 94% room air GENERAL: BMI 23.8, reclining in bed, not in distress. EYES: Pupils equal. Conjunctiva normal. HEENT: External appearance of nose and ears normal, oral cavity grossly normal. NECK: JVD not raised; masses not palpable. HEART: First and second heart sounds are normal; no edema. LUNGS: Respiratory rate increased,; minimal wheezing. ABDOMEN: Soft, nontender, liver spleen not palpable, no masses palpable. PSYCH: Alert and oriented x3; mood and affect normal. NEUROLOGICAL: Cranial nerves grossly intact; no facial asymmetry, power and sensation grossly intact. MUSCULAR skeletal: Evidence of OA LYMPHATICS: No lymph nodes palpable in the axilla and neck INVESTIGATIONS, reviewed in the clinical context: White count 7.4 hemoglobin 15.5 platelets 260 potassium 4.3- creatinine 0.77 D-dimer 0.62 Lactic acid 2. 1 repeat 0.7 proBNP 411 troponin I less than 0.012 Influenza type A type B, RSV, Coronavirus P/Cr-all not detected EKG tracing personally reviewed by me-normal sinus rhythm nonspecific T-wave changes Chest x-ray film personally reviewed by me-no obvious infiltrate CT angina chest-atypical finding artifact versus possible PE. Venous Doppler-right leg: No DVT. Left leg: Concerns for nonocclusive thrombus within the left superficial femoral and popliteal vein. Assessment: -Possibility of pulmonary embolism. This is a patient because of a pulmonary status does not be very active. There is evidence of possible DVT in the left popliteal vein. And a question about being on the computed tomography scan. Given the clinical picture it is better than anticoagulate the patient. Patient was given Lovenox in the ER. We'll give her Lovenox dose this morning. Follow- up with xarelto starter pack. -Moderate persistent asthma with acute exacerbation. Patient has run out of inhaler, Symbicort. Has not visited a personnel security assistant for some time. Patient was started on bronchodilators , steroids. The patient is responding well. -GERD -Hyperlipidemia -Essential hypertension -Nephrolithiasis-asymptomatic Past Medical History Past Medical History: Asthma, GERD/Reflux, Hyperlipidemia, Hypertension, Pneumonia Additional Past Medical History / Comment(s): states pneumonia May 2018 and had 6 falls since then (states legs just gave out), SOB with activity, Hx of kidney stone, states weight loss due to stomach pain- which has improved. , pt states she stopped all her medications 3 months ago except her inhaler and updraft tx., states she told Dr. Lainez -she is unsure if he heard her -encouraged to call Dr. Lainez to see if she should restart her meds. History of Any Multi-Drug Resistant Organisms: None Reported Past Surgical History: Hysterectomy Past Anesthesia/Blood Transfusion Reactions: No Reported Reaction Past Psychological History: No Psychological Hx Reported Smoking Status: Never smoker Past Alcohol Use History: None Reported Past Drug Use History: None Reported - Past Family History Mother Family Medical History: No Reported History Medications and Allergies Home Medications Medication Instructions Recorded Confirmed Type Budesonide-Formot 160-4.5 Mcg 1 puff INHALATION BID #1 inhaler 11/22/20 Rx [Symbicort 160-4.5 Mcg Inhaler] Ipratropium-Albuterol Nebulize 3 ml INHALATION RT-QID #120 neb 11/22/20 Rx [Duoneb 0.5 mg-3 mg/3 ml Soln] Loratadine-Pseudoeph 5-120 mg 1 tab PO Q12HR #10 tab 11/22/20 Rx [Claritin-D 12 Hour] Rivaroxaban [Xarelto Starter Pack] 0 mg PO DIRECTED 30 Days #1 pack 11/22/20 Rx predniSONE 10 mg PO DAILY #30 tab 11/22/20 Rx Allergies Allergy/AdvReac Type Severity Reaction Status Date / Time No Known Allergies Allergy Verified 11/21/20 16:19 Physical Exam Vitals: Vital Signs Temp Pulse Pulse Resp BP BP Pulse Ox 11/22/20 07:26 97.4 F L 91 14 133/78 97 11/22/20 07:25 90 11/22/20 07:15 90 97 11/22/20 02:00 98 F 88 17 118/76 96 11/22/20 01:25 85 18 11/21/20 20:00 98 F 89 18 117/71 97 11/21/20 18:32 98 F 89 18 117/71 97 11/21/20 18:00 98 F 101 H 22 126/89 95 11/21/20 17:00 98.2 F 105 H 22 125/56 97 11/21/20 16:00 92 26 H 119/66 100 11/21/20 15:30 99 26 H 119/66 99 11/21/20 15:04 93 11/21/20 15:00 90 28 H 115/87 100 11/21/20 14:51 92 11/21/20 14:07 98.2 F 94 26 H 132/70 94 L Intake and Output 11/21/20 11/22/20 11/22/20 22:59 06:59 14:59 Intake Total 1340 800 Balance 1340 800 Intake: Intake, IV Titration 800 800 Amount Sodium Chloride 0.9% 1, 800 800 000 ml @ 100 mls/hr IV . Q10H [facility] Rx#:[id number] Oral 540 Other: Voiding Method Toilet Toilet # Voids 2 1 Weight 55.338 kg Results CBC & Chem 7: 11/21/20 14:37 11/21/20 14:37 Labs: Abnormal Lab Results - Last 24 Hours (Table) 11/21/20 11/21/20 11/21/20 Range/Units 14:37 14:37 14:37 D-Dimer 0.62 H (<0.60) mg/L FEU BUN 18 H (7-17) mg/dL Glucose 106 H (74-99) mg/dL Plasma Lactic Acid Jhonathan 2.1 H* (0.7-2.0) mmol/L Thrombosis Risk Factor Assmnt - Choose All That Apply Any of the Below Risk Factors Present?: No Other Risk Factors: Yes Each Risk Factor Represents 3 Points: Age 75 years or older Other congenital or acquired thrombophilia - If yes, enter type in comment: No Thrombosis Risk Factor Assessment Total Risk Factor Score: 3 Thrombosis Risk Factor Assessment Level: Moderate Risk
--- NOTE | 2020-11-22 23:14 | P.DS ---
Providers Date of admission: 11/21/20 18:13 Expected date of discharge: 11/22/20 Attending physician: Rob Camargo Primary care physician: Chaitanya Lainez MD Hospital Course: Chief Complaint: Short of breath History of presenting complaint: This is a pleasant 84-year-old patient of Dr. lainez from [place]. Patient has not followed up with her employment services director on her family doctor for quite some while. Chronic stable medical conditions include GERD, hyperlipidemia, hypertension, abdominal aortic aneurysm, kidney stones. Patient has progressively been getting short of breath a few weeks. Increasing wheezing. Denies any fever and chills. Congested. Appetite has been okay. Started on bronchodilators in the ER. Computed tomography scan of the chest was possibly suggested of a PE. Doppler ultrasound was suggestive of DVT in the popliteal vein. Patient did receive Lovenox.. Patient's wheezing is somewhat better this morning. Patient does have nasal congestion. Patient computed tomography scan of the chest could not rule out a PE. Doppler ultrasound did show possible DVT of the left popliteal vein. Given that patient is less active because of her asthma exacerbation patient was treated with Lovenox and swished over to xarelto for discharge. Also admitted with moderate persistent asthma acute exacerbation. Responded well to bronchodilators and steroids. Discussed with the patient. Doing much better. We'll follow-up with her PCP in a employment services director. Consultation: Dr. Miller from pulmonary Past medical history to include: Asthma, GERD, hyperlipidemia, hypertension, thyroid nodule, abdominal aortic aneurysm, kidney stones, Social history: Lives with her . No history of alcohol or smoking. Family history: Reviewed, noncontributory to presentation Physical examination: VITAL SIGNS: 98.2, 94, 26, 132/70, 94% room air GENERAL: BMI 23.8, reclining in bed, not in distress. EYES: Pupils equal. Conjunctiva normal. HEENT: External appearance of nose and ears normal, oral cavity grossly normal. NECK: JVD not raised; masses not palpable. HEART: First and second heart sounds are normal; no edema. LUNGS: Respiratory rate increased,; minimal wheezing. ABDOMEN: Soft, nontender, liver spleen not palpable, no masses palpable. PSYCH: Alert and oriented x3; mood and affect normal. NEUROLOGICAL: Cranial nerves grossly intact; no facial asymmetry, power and sensation grossly intact. MUSCULAR skeletal: Evidence of OA LYMPHATICS: No lymph nodes palpable in the axilla and neck INVESTIGATIONS, reviewed in the clinical context: White count 7.4 hemoglobin 15.5 platelets 260 potassium 4.3- creatinine 0.77 D-dimer 0.62 Lactic acid 2. 1 repeat 0.7 proBNP 411 troponin I less than 0.012 Influenza type A type B, RSV, Coronavirus P/Cr-all not detected EKG tracing personally reviewed by me-normal sinus rhythm nonspecific T-wave changes Chest x-ray film personally reviewed by me-no obvious infiltrate CT angina chest-atypical finding artifact versus possible PE. Venous Doppler-right leg: No DVT. Left leg: Concerns for nonocclusive thrombus within the left superficial femoral and popliteal vein. Assessment and plan: -Possibility of pulmonary embolism. This is a patient because of a pulmonary status does not be very active. There is evidence of possible DVT in the left popliteal vein. And a question about being on the computed tomography scan. Given the clinical picture it is better than anticoagulate the patient. Patient was given Lovenox in the ER. We'll give her Lovenox dose this morning. Follow- up with xarelto starter pack. -Moderate persistent asthma with acute exacerbation. Patient has run out of inhaler, Symbicort. Has not visited a employment services director for some time. Patient was started on bronchodilators , steroids. The patient is responding well. -GERD -Hyperlipidemia -Essential hypertension -Nephrolithiasis-asymptomatic Disposition: Home Patient Condition at Discharge: Fair Plan - Discharge Summary Discharge Rx Participant: No New Discharge Prescriptions: New predniSONE 10 mg PO DAILY #30 tab Budesonide-Formot 160-4.5 Mcg [Symbicort 160-4.5 Mcg Inhaler] 1 puff INHALATION BID #1 inhaler Rivaroxaban [Xarelto Starter Pack] 0 mg PO DIRECTED 30 Days #1 pack Loratadine-Pseudoeph 5-120 mg [Claritin-D 12 Hour] 1 tab PO Q12HR #10 tab Continue Ipratropium-Albuterol Nebulize [Duoneb 0.5 mg-3 mg/3 ml Soln] 3 ml INHALATION RT-QID #120 neb Discharge Medication List Budesonide-Formot 160-4.5 Mcg [Symbicort 160-4.5 Mcg Inhaler] 1 puff INHALATION BID #1 inhaler 11/22/20 [Rx] Ipratropium-Albuterol Nebulize [Duoneb 0.5 mg-3 mg/3 ml Soln] 3 ml INHALATION RT-QID #120 neb 11/22/20 [Rx] Loratadine-Pseudoeph 5-120 mg [Claritin-D 12 Hour] 1 tab PO Q12HR #10 tab 11/22/20 [Rx] Rivaroxaban [Xarelto Starter Pack] 0 mg PO DIRECTED 30 Days #1 pack 11/22/20 [Rx] predniSONE 10 mg PO DAILY #30 tab 11/22/20 [Rx] Follow up Appointment(s)/Referral(s): Janet Antunez MD [Family Provider] - 1 Week Chaitanya Lainez MD [Primary Care Provider] - 1-2 days Patient Instructions/Handouts: COPD (Chronic Obstructive Pulmonary Disease) (DC) Activity/Diet/Wound Care/Special Instructions: activity as tolerated heart healthy diet
== END 2020-11-22 14:01 ==
LOC: EC 14:02 → 6NMEDSUR 18:13
PROVIDERS: ADMIT Hospitalist; ATTEND Hospitalist
DX: J45.41 Moderate persistent asthma with (acute) exacerbation (principal); K21.9 Gastro-esophageal reflux disease without esophagitis; E78.5 Hyperlipidemia, unspecified; I10 Essential (primary) hypertension; N20.0 Calculus of kidney; Z91.81 History of falling; T50.916A Underdosing of multiple unspecified drugs, medicaments and biological substances, initial encounter; J44.1 Chronic obstructive pulmonary disease with (acute) exacerbation; I25.10 Atherosclerotic heart disease of native coronary artery without angina pectoris; J98.4 Other disorders of lung; E04.9 Nontoxic goiter, unspecified; Z79.899 Other long term (current) drug therapy; Z87.01 Personal history of pneumonia (recurrent); Z91.128 Patient's intentional underdosing of medication regimen for other reason; Z90.710 Acquired absence of both cervix and uterus; I71.4 Abdominal aortic aneurysm, without rupture; R09.81 Nasal congestion; E04.1 Nontoxic single thyroid nodule; M25.50 Pain in unspecified joint; Z20.822 Contact with and (suspected) exposure to COVID-19; Z20.828 Contact with and (suspected) exposure to other viral communicable diseases; Z91.19 Patient's noncompliance with other medical treatment and regimen; Z79.51 Long term (current) use of inhaled steroids; Z79.01 Long term (current) use of anticoagulants
CPT/HCPCS: 96376 ×2; 96361 ×2; 96372; 96365; 96375; 99285; 36415; 94640 ×3; 94760; 93005; 85379; 83880; 80053; 82550; 83605; 83735; 84484; 85025; 85610; 85730; 87040; 87636; 71046; 93970; 71275; G0378 ×2; J2060; J2930 ×2; J1650; J3475; Q9967

== ENCOUNTER 2020-12-27 13:04 | Observation (INO) | payer MEDICARE ==
[2020-12-27] MEDS ORDERED: methylPREDNISolone SOD SUCCI 125 MG/2 ML VIAL IV STA (13:19)
[2020-12-27] MEDS ORDERED: IPRATROPIUM-ALBUTEROL 3 ML NEB INHALATION STA (13:19)
--- NOTE | 2020-12-27 13:22 | ED ---
General Adult HPI - General Chief complaint: Shortness of Breath Stated complaint: CIARAN Time Seen by Provider: 12/27/20 13:10 Source: patient, EMS, RN notes reviewed Mode of arrival: EMS Limitations: no limitations - History of Present Illness Initial comments: Patient is a pleasant 85-year-old female presenting to the emergency department with difficulty in breathing. Onset of symptoms was a couple of days ago. Patient does have history of similar symptoms previously associated with asthma. Patient does see a specialist for this. Patient denies any cough or fever. No chest pain. Patient does have a little bit of fatigue. No leg pain or leg swelling. Patient is currently taking her blood thinner still. - Related Data Home Medications Medication Instructions Recorded Confirmed Budesonide-Formot 160-4.5 Mcg 1 puff INHALATION RT-BID 12/27/20 12/27/20 [Symbicort 160-4.5 Mcg Inhaler] Rivaroxaban [Xarelto] 2.5 mg PO AC-BID 12/27/20 12/27/20 Previous Rx's Medication Instructions Recorded Ipratropium-Albuterol Nebulize 3 ml INHALATION RT-QID #120 neb 11/22/20 [Duoneb 0.5 mg-3 mg/3 ml Soln] Loratadine-Pseudoeph 5-120 mg 1 tab PO Q12HR #10 tab 11/22/20 [Claritin-D 12 Hour] Allergies Allergy/AdvReac Type Severity Reaction Status Date / Time No Known Allergies Allergy Verified 12/27/20 13:14 Review of Systems ROS Statement: Those systems with pertinent positive or pertinent negative responses have been documented in the HPI. ROS Other: All systems not noted in ROS Statement are negative. Constitutional: Denies: fever Eyes: Denies: eye pain ENT: Denies: ear pain Respiratory: Reports: dyspnea Cardiovascular: Denies: chest pain Endocrine: Reports: fatigue Gastrointestinal: Denies: abdominal pain Genitourinary: Denies: urgency Musculoskeletal: Denies: back pain Skin: Denies: rash Neurological: Denies: weakness Past Medical History Past Medical History: Asthma, GERD/Reflux, Hyperlipidemia, Hypertension, Pneumonia Additional Past Medical History / Comment(s): states pneumonia May 2018 and had 6 falls since then (states legs just gave out), SOB with activity, Hx of kidney stone, states weight loss due to stomach pain- which has improved. , pt states she stopped all her medications 3 months ago except her inhaler and updraft tx., states she told Dr. Lainez -she is unsure if he heard her -encouraged to call Dr. Lainez to see if she should restart her meds. History of Any Multi-Drug Resistant Organisms: None Reported Past Surgical History: Hysterectomy Past Anesthesia/Blood Transfusion Reactions: No Reported Reaction Past Psychological History: No Psychological Hx Reported Smoking Status: Never smoker Past Alcohol Use History: None Reported Past Drug Use History: None Reported - Past Family History Mother Family Medical History: No Reported History General Exam Limitations: no limitations General appearance: alert, in no apparent distress Head exam: Present: normocephalic Eye exam: Present: normal appearance Neck exam: Present: normal inspection Respiratory exam: Present: wheezes, accessory muscle use, decreased breath sounds Cardiovascular Exam: Present: regular rate, normal rhythm GI/Abdominal exam: Present: soft. Absent: tenderness Extremities exam: Present: normal inspection. Absent: pedal edema, calf tenderness Neurological exam: Present: alert Psychiatric exam: Present: normal affect, normal mood Skin exam: Present: normal color Course Vital Signs 12/27/20 12/27/20 12/27/20 13:07 13:26 13:33 Temperature 98.1 F Pulse Rate 91 88 90 Respiratory 18 Rate Blood Pressure 137/82 O2 Sat by Pulse 98 Oximetry 12/27/20 12/27/20 12/27/20 14:00 14:08 14:10 Temperature Pulse Rate 84 90 94 Respiratory 20 Rate Blood Pressure 124/68 O2 Sat by Pulse 95 Oximetry EKG Findings - EKG Comments: EKG Findings:: Normal sinus rhythm with a rate of 84. MA 172. QRS 78. QT 384. QTC 453. Left axis. Left anterior fascicular block. No acute ST change. Medical Decision Making - Medical Decision Making Patient reevaluated with only mild improvement. Dr. Camargo has been paged for admission, he admitted this patient just over 1 month ago. Previously seen Dr. Dahl. Case was discussed with Dr. Camargo, who will admit. - Lab Data Result diagrams: 12/27/20 13:34 12/27/20 13:34 Lab Results 12/27/20 12/27/20 Range/Units 13:34 13:34 WBC 6.9 (3.8-10.6) k/uL RBC 4.62 (3.80-5.40) m/uL Hgb 14.0 (11.4-16.0) gm/dL Hct 41.9 (34.0-46.0) % MCV 90.8 (80.0-100.0) fL MCH 30.4 (25.0-35.0) pg MCHC 33.5 (31.0-37.0) g/dL RDW 13.8 (11.5-15.5) % Plt Count 317 (150-450) k/uL MPV 7.4 Neutrophils % 69 % Lymphocytes % 16 % Monocytes % 6 % Eosinophils % 6 % Basophils % 1 % Neutrophils # 4.8 (1.3-7.7) k/uL Lymphocytes # 1.1 (1.0-4.8) k/uL Monocytes # 0.4 (0-1.0) k/uL Eosinophils # 0.4 (0-0.7) k/uL Basophils # 0.1 (0-0.2) k/uL Sodium 139 (137-145) mmol/L Potassium 4.3 (3.5-5.1) mmol/L Chloride 105 (98-107) mmol/L Carbon Dioxide 26 (22-30) mmol/L Anion Gap 8 mmol/L BUN 14 (7-17) mg/dL Creatinine 0.80 (0.52-1.04) mg/dL Est GFR (CKD-EPI)AfAm 79 (>60 ml/min/1.73 sqM) Est GFR (CKD-EPI)NonAf 69 (>60 ml/min/1.73 sqM) Glucose 100 H (74-99) mg/dL Calcium 9.5 (8.4-10.2) mg/dL Total Bilirubin 0.7 (0.2-1.3) mg/dL AST 19 (14-36) U/L ALT 8 (4-34) U/L Alkaline Phosphatase 81 (38-126) U/L Total Protein 6.2 L (6.3-8.2) g/dL Albumin 3.7 (3.5-5.0) g/dL - Radiology Data Radiology results: image reviewed Disposition Clinical Impression: Acute exacerbation of chronic obstructive pulmonary disease Disposition: ADMITTED IP TO THIS HOSP Is patient prescribed a controlled substance at d/c from ED?: No Decision Time: 13:56
[2020-12-27 13:50] LABS: Basophils # (A) 0.1 k/uL (0-0.2); Basophils % (A) 1 %; Eosinophils # (A) 0.4 k/uL (0-0.7); Eosinophils % (A) 6 %; HCT 41.9 % (34.0-46.0); Lymphocytes # (A) 1.1 k/uL (1.0-4.8); Lymphocytes % (A) 16 %; MCH 30.4 pg (25.0-35.0); MCHC 33.5 g/dL (31.0-37.0); MCV 90.8 fL (80.0-100.0); Mean Platelet Volume 7.4; Monocytes # (A) 0.4 k/uL (0-1.0); Monocytes % (A) 6 %; Neutrophils # (A) 4.8 k/uL (1.3-7.7); Neutrophils % (A) 69 %; Platelet Count 317 k/uL (150-450); RBC 4.62 m/uL (3.80-5.40); RDW 13.8 % (11.5-15.5); WBC 6.9 k/uL (3.8-10.6)
[2020-12-27] MEDS ORDERED: IPRATROPIUM-ALBUTEROL 3 ML NEB INHALATION PRN (13:57)
[2020-12-27] MEDS: IPRATROPIUM-ALBUTEROL 3 ML NEB INHALATION SCH ×2 (14:00→21:47)
--- NOTE | 2020-12-27 14:08 | XR ---
EXAMINATION TYPE: XR chest 2V DATE OF EXAM: 12/27/2020 COMPARISON: 11/21/2020 HISTORY: 85 year-old female shortness of breath, difficulty breathing TECHNIQUE: AP and lateral views FINDINGS: Heart normal size. Aorta and pulmonary vasculature within normal limits. Hyperinflation. No louie con solidation. No pleural effusion seen. Some biapical pleural-parenchymal scarring. IMPRESSION: COPD. No definite acute process.
[2020-12-27 14:10] LABS: Albumin 3.7 g/dL (3.5-5.0); Calcium 9.5 mg/dL (8.4-10.2); Potassium 4.3 mmol/L (3.5-5.1); Total Bilirubin 0.7 mg/dL (0.2-1.3); Total Protein 6.2 g/dL (6.3-8.2)
[2020-12-27 14:28] LABS: INR 1.1 (<1.2); Partial Thromboplastin Time 23.8 sec (22.0-30.0); Prothrombin Time 11.5 sec (9.0-12.0)
[2020-12-27 17:28] LABS: Glucose,Whole Blood 140 mg/dL (75-99)
[2020-12-27] MEDS: RIVAROXABAN 2.5 MG TABLET PO SCH (17:41)
[2020-12-27] MEDS ORDERED: methylPREDNISolone SOD SUCCI 125 MG/2 ML VIAL IV SCH (18:00)
[2020-12-27] MEDS ORDERED: SYMBICORT 160-4.5 MCG INHALER INHALATION SCH (20:00)
[2020-12-27] MEDS: LORATADINE-PSEUDOEPH 5-120 MG 1 EACH TAB.ER.12H PO SCH (20:37)
--- NOTE | 2020-12-27 21:47 | P.HPIM ---
History of Present Illness H&P Date: 12/27/20 Chief Complaint: Short of breath History of presenting complaint: This is a pleasant 84-year-old patient of Dr. rhodes from [place]. Chronic stable medical conditions include GERD, hyperlipidemia, hypertension, abdominal aortic aneurysm, kidney stones. Patient was here in early part of November this year with a suspected pulmonary embolism and left popliteal vein DVT. For which she is on xarelto. Patient for last 2-3 days has been progressively getting increasingly short of breath. Increasing wheezing. At rest. No cough no sputum no fever no chills. Just very tight. The chest. Given bronchodilators. To which she did feel a bit better . Review of systems: GEN.: Tired EYES: None HEENT: None NECK: None RESPIRATORY: As above CARDIOVASCULAR: None GASTROINTESTINAL: None GENITOURINARY: None MUSCULOSKELETAL: joint pains LYMPHATICS: None HEMATOLOGICAL: None PSYCHIATRY: None NEUROLOGICAL: None Past medical history to include: Asthma, GERD, hyperlipidemia, hypertension, thyroid nodule, abdominal aortic aneurysm, kidney stones, left popliteal vein DVT and PE in November 2020 Social history: Lives with her . No history of alcohol or smoking. Family history: Reviewed, noncontributory to presentation Physical examination: VITAL SIGNS: 98.1, 91, 22, 1 3782, 98% on 3 L GENERAL: BMI 21.7, declining in bed, short of breath EYES: Pupils equal. Conjunctiva normal. HEENT: External appearance of nose and ears normal, oral cavity grossly normal. NECK: JVD not raised; masses not palpable. HEART: First and second heart sounds are normal; no edema. LUNGS: Respiratory rate increased, poor air entry, prolonged expiration and wheezing, not able to speak in full sentences ABDOMEN: Soft, nontender, liver spleen not palpable, no masses palpable. PSYCH: Alert and oriented x3; mood and affect slightly anxious NEUROLOGICAL: Cranial nerves grossly intact; no facial asymmetry, power and sensation grossly intact. MUSCULAR skeletal: Evidence of OA LYMPHATICS: No lymph nodes palpable in the axilla and neck INVESTIGATIONS, reviewed in the clinical context: WBC 6.9 hemoglobin 14 platelets 317 potassium 4.3 creatinine 0.8 lactic acid 2.4 Coronavirus [PCR]-not detected EKG tracing personally reviewed by me-normal sinus rhythm Chest x-ray film personally reviewed by me-shows some chronic scarring Assessment and plan: -Moderate persistent asthma with acute exacerbation. Patient to be started on nebulized bronchodilators, inhaled steroids acting beta agonist and IV Solu- Medrol. 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 Consult pulmonary. Past Medical History Past Medical History: Asthma, GERD/Reflux, Hyperlipidemia, Hypertension, Pneumonia Additional Past Medical History / Comment(s): states pneumonia May 2018 and had 6 falls at that time (states legs just gave out), pt currently denies nay falls in the last 6 months. SOB with activity, Hx of kidney stone, states weight loss due to stomach pain- which has improved. History of Any Multi-Drug Resistant Organisms: None Reported Past Surgical History: Hysterectomy Past Anesthesia/Blood Transfusion Reactions: No Reported Reaction Past Psychological History: No Psychological Hx Reported Smoking Status: Never smoker Past Alcohol Use History: None Reported Past Drug Use History: None Reported - Past Family History Mother Family Medical History: No Reported History Medications and Allergies Home Medications Medication Instructions Recorded Confirmed Type Ipratropium-Albuterol Nebulize 3 ml INHALATION RT-QID #120 neb 11/22/20 12/27/20 Rx [Duoneb 0.5 mg-3 mg/3 ml Soln] Loratadine-Pseudoeph 5-120 mg 1 tab PO Q12HR #10 tab 11/22/20 12/27/20 Rx [Claritin-D 12 Hour] Budesonide-Formot 160-4.5 Mcg 1 puff INHALATION RT-BID 12/27/20 12/27/20 History [Symbicort 160-4.5 Mcg Inhaler] Rivaroxaban [Xarelto] 2.5 mg PO AC-BID 12/27/20 12/27/20 History Allergies Allergy/AdvReac Type Severity Reaction Status Date / Time No Known Allergies Allergy Verified 12/27/20 13:14 Physical Exam Vitals: Vital Signs Temp Pulse Pulse Resp BP BP Pulse Ox 12/27/20 20:00 98.0 F 87 18 115/65 95 12/27/20 16:37 98.9 F 91 22 126/84 95 12/27/20 15:00 98.0 F 94 20 118/60 96 12/27/20 14:10 94 12/27/20 14:08 90 20 124/68 95 12/27/20 14:00 84 12/27/20 13:33 90 12/27/20 13:26 88 12/27/20 13:07 98.1 F 91 18 137/82 98 Intake and Output 12/27/20 12/27/20 12/27/20 06:59 14:59 22:59 Intake Total 240 Balance 240 Intake: Oral 240 Other: Voiding Method Bedside Commode # Voids 2 Weight 52.163 kg 52.163 kg Results CBC & Chem 7: 12/27/20 13:34 12/27/20 13:34 Labs: Abnormal Lab Results - Last 24 Hours (Table) 12/27/20 12/27/20 12/27/20 Range/Units 13:34 13:34 17:26 Glucose 100 H (74-99) mg/dL POC Glucose (mg/dL) 140 H (75-99) mg/dL Plasma Lactic Acid Jhonathan 2.4 H* (0.7-2.0) mmol/L Total Protein 6.2 L (6.3-8.2) g/dL Thrombosis Risk Factor Assmnt - Choose All That Apply Any of the Below Risk Factors Present?: Yes Other Risk Factors: Yes Each Risk Factor Represents 3 Points: Age 75 years or older Other congenital or acquired thrombophilia - If yes, enter type in comment: No Thrombosis Risk Factor Assessment Total Risk Factor Score: 3 Thrombosis Risk Factor Assessment Level: Moderate Risk
[2020-12-27 21:58] VITALS: RESP 18
[2020-12-27] MEDS: methylPREDNISolone SOD SUCCI 40 MG/ML 1 ML VIAL IV SCH (22:08)
[2020-12-28] MEDS: IPRATROPIUM-ALBUTEROL 3 ML NEB INHALATION SCH ×3 (01:42→08:03)
[2020-12-28 07:52] VITALS: BP 127/80; TEMP 97.9
[2020-12-28] MEDS ORDERED: FORMOTEROL FUMARATE 20 MCG/2 ML NEBU INHALATION SCH (08:00)
[2020-12-28] MEDS ORDERED: BUDESONIDE 1 MG/2 ML NEBU INHALATION SCH (08:00)
[2020-12-28 08:23] VITALS: PULSE 92
[2020-12-28] MEDS: methylPREDNISolone SOD SUCCI 40 MG/ML 1 ML VIAL IV SCH (08:47)
[2020-12-28] MEDS: RIVAROXABAN 2.5 MG TABLET PO SCH (08:52)
[2020-12-28] MEDS: LORATADINE-PSEUDOEPH 5-120 MG 1 EACH TAB.ER.12H PO SCH (08:52)
--- NOTE | 2020-12-28 22:21 | P.DS ---
Providers Date of admission: 12/27/20 13:57 Expected date of discharge: 12/28/20 Attending physician: Rob Camargo Consults: 12/27/20 13:57 Consult Physician Routine Consulting Provider: Janet Antunez Consult Reason/Comments: dyspnea, copd Do you want consulting provider notified?: Yes Primary care physician: Janet Antunez [facility] Course: Chief Complaint: Short of breath History of presenting complaint: This is a pleasant 84-year-old patient of Dr. lainez from [place]. Chronic stable medical conditions include GERD, hyperlipidemia, hypertension, abdominal aortic aneurysm, kidney stones. Patient was here in early part of November this year with a suspected pulmonary embolism and left popliteal vein DVT. For which she is on xarelto. Patient for last 2-3 days has been progressively getting increasingly short of breath. Increasing wheezing. At rest. No cough no sputum no fever no chills. Just very tight. The chest. Given bronchodilators. To which she did feel a bit better . Admitted with acute asthma exacerbation. Put on nebulized bronchodilators, IV steroids, inhaled steroids. Long-acting inhalers Today-feeling much better. Quite back to baseline. Keep to go home. Discussed with the patient. Past medical history to include: Asthma, GERD, hyperlipidemia, hypertension, thyroid nodule, abdominal aortic aneurysm, kidney stones, left popliteal vein DVT and PE in November 2020 Social history: Lives with her . No history of alcohol or smoking. Family history: Reviewed, noncontributory to presentation Physical examination: VITAL SIGNS: 97.9, 95, 18, 127/80, 96% on 2 L GENERAL: Sitting up in bed, breathing much improved EYES: Pupils equal. Conjunctiva normal. HEENT: External appearance of nose and ears normal, oral cavity grossly normal. NECK: JVD not raised; masses not palpable. HEART: First and second heart sounds are normal; no edema. LUNGS: Respiratory rate normal, improved air entry ABDOMEN: Soft, nontender, liver spleen not palpable, no masses palpable. PSYCH: Alert and oriented x3; mood and affect slightly anxious NEUROLOGICAL: Cranial nerves grossly intact; no facial asymmetry, power and sensation grossly intact. INVESTIGATIONS, reviewed in the clinical context: WBC 6.9 hemoglobin 14 platelets 317 potassium 4.3 creatinine 0.8 lactic acid 2.4 Coronavirus [PCR]-not detected EKG tracing personally reviewed by me-normal sinus rhythm Chest x-ray film personally reviewed by me-shows some chronic scarring Assessment and plan: -Moderate persistent asthma with acute exacerbation. Patient to be started on nebulized bronchodilators, inhaled steroids acting beta agonist and IV Solu- Medrol. Responded well. 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 for which patient is on xarelto -GERD, use Pepcid when necessary -Hyperlipidemia, diet controlled -Essential hypertension, off blood pressure medications -Nephrolithiasis-asymptomatic Disposition: Home Plan - Discharge Summary Discharge Rx Participant: No New Discharge Prescriptions: New predniSONE 10 mg PO DAILY #30 tab Continue Ipratropium-Albuterol Nebulize [Duoneb 0.5 mg-3 mg/3 ml Soln] 3 ml INHALATION RT-QID #120 neb Loratadine-Pseudoeph 5-120 mg [Claritin-D 12 Hour] 1 tab PO Q12HR #10 tab Rivaroxaban [Xarelto] 2.5 mg PO AC-BID Budesonide-Formot 160-4.5 Mcg [Symbicort 160-4.5 Mcg Inhaler] 1 puff INHALATION RT-BID Discharge Medication List Ipratropium-Albuterol Nebulize [Duoneb 0.5 mg-3 mg/3 ml Soln] 3 ml INHALATION RT-QID #120 neb 11/22/20 [Rx] Loratadine-Pseudoeph 5-120 mg [Claritin-D 12 Hour] 1 tab PO Q12HR #10 tab 11/22/20 [Rx] Budesonide-Formot 160-4.5 Mcg [Symbicort 160-4.5 Mcg Inhaler] 1 puff INHALATION RT-BID 12/27/20 [History] Rivaroxaban [Xarelto] 2.5 mg PO AC-BID 12/27/20 [History] predniSONE 10 mg PO DAILY #30 tab 12/28/20 [Rx] Follow up Appointment(s)/Referral(s): Janet Antunez MD [Primary Care Provider] - 01/06/21 10:30 am Chaitanya Lainez MD [REFERRING] - 1 Week Patient Instructions/Handouts: COPD (Chronic Obstructive Pulmonary Disease) (DC) Discharge Disposition: HOME SELF-CARE
== END 2020-12-28 11:42 | disposition home or self-care (01) ==
LOC: EC 13:04 → 6NMEDSUR 13:57
PROVIDERS: ADMIT Hospitalist; ATTEND Hospitalist
DX: J45.41 Moderate persistent asthma with (acute) exacerbation (principal); I27.82 Chronic pulmonary embolism; I82.532 Chronic embolism and thrombosis of left popliteal vein; K21.9 Gastro-esophageal reflux disease without esophagitis; E78.5 Hyperlipidemia, unspecified; I10 Essential (primary) hypertension; E04.1 Nontoxic single thyroid nodule; I71.4 Abdominal aortic aneurysm, without rupture; N20.0 Calculus of kidney; Z79.51 Long term (current) use of inhaled steroids; Z79.01 Long term (current) use of anticoagulants; Z87.01 Personal history of pneumonia (recurrent); Z90.710 Acquired absence of both cervix and uterus; Z20.822 Contact with and (suspected) exposure to COVID-19
CPT/HCPCS: 96376; 96374; 99285; 36415; 94660; 94640 ×4; 93005; 80053; 83605; 84484; 85025; 85610; 85730; 87635; 71046; G0378 ×2; J2920 ×2; J2930

== ENCOUNTER 2021-02-07 10:45 | Emergency (ER) | payer MEDICARE ==
[2021-02-07 10:55] VITALS: BP 115/68; RESP 18; TEMP 98.3
[2021-02-07] MEDS ORDERED: IPRATROPIUM-ALBUTEROL 3 ML NEB INHALATION STA (11:22)
[2021-02-07] MEDS ORDERED: methylPREDNISolone SOD SUCCI 125 MG/2 ML VIAL IV STA (11:22)
--- NOTE | 2021-02-07 11:37 | ED ---
SOB HPI - General Chief Complaint: Shortness of Breath Stated Complaint: COPD Time Seen by Provider: 02/07/21 10:53 Source: patient, EMS Mode of arrival: EMS Limitations: no limitations - History of Present Illness Initial Comments: Patient is an 85-year-old female, with history of COPD, presenting to the emergency department via EMS with complaints of increasing shortness of breath over the past few days. Patient states he tried to get ahold of her patient service representative, Dr. Freitas for steroids however she has been unsuccessful. She states that she really just wants some steroids and wants to go home. She did do an albuterol treatment at home and had a DuoNeb and the EMS prior to arrival. She does report improvement in her symptoms. As any chest pains, no fevers or chills, no nausea or vomiting no abdominal pain. She has no further complaints at this time. Upon arrival to the ER, her vitals are stable. - Related Data Home Medications Medication Instructions Recorded Confirmed Budesonide-Formot 160-4.5 Mcg 1 puff INHALATION RT-BID 12/27/20 12/27/20 [Symbicort 160-4.5 Mcg Inhaler] Rivaroxaban [Xarelto] 2.5 mg PO AC-BID 12/27/20 12/27/20 Previous Rx's Medication Instructions Recorded Ipratropium-Albuterol Nebulize 3 ml INHALATION RT-QID #120 neb 11/22/20 [Duoneb 0.5 mg-3 mg/3 ml Soln] Loratadine-Pseudoeph 5-120 mg 1 tab PO Q12HR #10 tab 11/22/20 [Claritin-D 12 Hour] predniSONE 10 mg PO DAILY #30 tab 02/07/21 Allergies Allergy/AdvReac Type Severity Reaction Status Date / Time No Known Allergies Allergy Verified 12/27/20 13:14 Review of Systems ROS Statement: Those systems with pertinent positive or pertinent negative responses have been documented in the HPI. ROS Other: All systems not noted in ROS Statement are negative. Past Medical History Past Medical History: Asthma, COPD, GERD/Reflux, Hyperlipidemia, Hypertension, Pneumonia Additional Past Medical History / Comment(s): states pneumonia May 2018 and had 6 falls at that time (states legs just gave out), pt currently denies nay falls in the last 6 months. SOB with activity, Hx of kidney stone, states weight loss due to stomach pain- which has improved. History of Any Multi-Drug Resistant Organisms: None Reported Past Surgical History: Hysterectomy Past Anesthesia/Blood Transfusion Reactions: No Reported Reaction Past Psychological History: No Psychological Hx Reported Smoking Status: Never smoker Past Alcohol Use History: None Reported Past Drug Use History: None Reported - Past Family History Mother Family Medical History: No Reported History General Exam - General Exam Comments Initial Comments: GENERAL: Patient is well-developed and well-nourished. Patient is nontoxic and in no acute distress. HEAD: Atraumatic, normocephalic. EYES: Pupils equal round and reactive to light, extraocular movements intact, sclera anicteric, conjunctiva are normal. Eyelids were unremarkable. ENT: TMs normal, nares patent, oropharynx clear without exudates. Moist mucous membranes. NECK: Normal range of motion, supple without lymphadenopathy or JVD. LUNGS: Unlabored respirations. Scattered wheezes throughout. HEART: Regular rate and rhythm without murmurs, rubs or gallops. ABDOMEN: Soft, nontender, normoactive bowel sounds. No guarding, no rebound. No masses appreciated. : Deferred MUSCULOSKELETAL: Normal extremities with adequate strength and normal range of motion, no pitting or edema. No clubbing or cyanosis. NEUROLOGICAL: Patient is alert and oriented x 3. Motor and sensory are also intact. Cranial nerves II through XII grossly intact. Symmetrical smile. Normal speech, normal gait. PSYCH: Normal mood, normal affect. SKIN: Warm, Dry, normal turgor, no rashes or lesions noted. Limitations: no limitations Course Vital Signs 02/07/21 02/07/21 02/07/21 10:47 10:55 12:13 Temperature 98.3 F Pulse Rate 96 85 Respiratory 18 18 18 Rate Blood Pressure 115/68 O2 Sat by Pulse 95 Oximetry 02/07/21 12:20 Temperature Pulse Rate 88 Respiratory 18 Rate Blood Pressure O2 Sat by Pulse Oximetry Medical Decision Making - Medical Decision Making Patient is an 85-year-old female with history of COPD, presenting for increased shortness of breath over the last few days. No fevers. She is simply requesting steroids, she tried to get ahold of her patient service representative for this but was unable to. Her vital signs are stable upon arrival. She did receive a DuoNeb in the EMS prior to arrival. She does report improvement in her symptoms. Her exam reveals scattered wheezes throughout. Patient was given So mook-Medrol IV, another DuoNeb treatment. She does report improvement in her symptoms and states she wants to go home. Patient will be given a prescription for prednisone, she'll follow up with Dr. Freitas this week. She is in agreement with this plan of care and she is stable for discharge. Return parameters were discussed with the patient and she verbalized understanding. Case discussed with Dr. Renae. Disposition Clinical Impression: Acute exacerbation of chronic obstructive pulmonary disease Disposition: HOME SELF-CARE Condition: Stable Instructions (If sedation given, give patient instructions): COPD (Chronic Obstructive Pulmonary Disease) (ED) Additional Instructions: Please return to the Emergency Department if symptoms worsen or any other concerns. Take steroids as prescribed. Follow-up with your patient service representative. Prescriptions: predniSONE 10 mg PO DAILY #30 tab Is patient prescribed a controlled substance at d/c from ED?: No Referrals: Chaitanya Lainez MD [Primary Care Provider] - 1-2 days Janet Antunez MD [STAFF PHYSICIAN] - 1-2 days Time of Disposition: 12:29
[2021-02-07 12:21] VITALS: PULSE 88
== END 2021-02-07 12:51 | disposition home or self-care (01) ==
LOC: EC 10:45
DX: J44.1 Chronic obstructive pulmonary disease with (acute) exacerbation (principal); I10 Essential (primary) hypertension; E78.5 Hyperlipidemia, unspecified; K21.9 Gastro-esophageal reflux disease without esophagitis; Z79.51 Long term (current) use of inhaled steroids; Z79.52 Long term (current) use of systemic steroids
CPT/HCPCS: 94640; 99284; 96374; J2930

== ENCOUNTER 2021-06-20 07:28 | Emergency (ER) | payer MEDICARE ==
[2021-06-20] MEDS ORDERED: SODIUM CHLORIDE 0.9% 1,000 ML IV STA (07:33)
--- NOTE | 2021-06-20 07:44 | ED ---
SOB HPI - General Stated Complaint: SOB Time Seen by Provider: 06/20/21 07:28 Source: patient, EMS, RN notes reviewed Mode of arrival: EMS - History of Present Illness Initial Comments: This is a 85-year-old female with a history of COPD who states she woke up this morning and was short of breath. She does have some chest heaviness along with it. She called 911 after her home medication failed to help her with breathing. She is brought in by EMS she was given DuoNeb treatment as well as steroids. She did get some improvement still feels short of breath approximation did improve. She states she is still wheezing. No palpitations she denies any fevers chills nausea vomiting sweats or phlegm production with any coughing. MD Complaint: shortness of breath - Related Data Home Medications Medication Instructions Recorded Confirmed Budesonide-Formot 160-4.5 Mcg 2 puff INHALATION RT-BID 12/27/20 06/20/21 [Symbicort 160-4.5 Mcg Inhaler] Rivaroxaban [Xarelto] 20 mg PO AC-BRKFST 06/20/21 06/20/21 predniSONE 5 mg PO AC-BRKFST 06/20/21 06/20/21 Previous Rx's Medication Instructions Recorded predniSONE [Deltasone] 20 mg PO BID #10 tab 06/20/21 Allergies Allergy/AdvReac Type Severity Reaction Status Date / Time No Known Allergies Allergy Verified 06/20/21 09:18 Review of Systems ROS Statement: Those systems with pertinent positive or pertinent negative responses have been documented in the HPI. ROS Other: All systems not noted in ROS Statement are negative. Past Medical History Past Medical History: Asthma, COPD, GERD/Reflux, Hyperlipidemia, Hypertension, Pneumonia Additional Past Medical History / Comment(s): states pneumonia May 2018 and had 6 falls at that time (states legs just gave out), pt currently denies nay falls in the last 6 months. SOB with activity, Hx of kidney stone, states weight loss due to stomach pain- which has improved. History of Any Multi-Drug Resistant Organisms: None Reported Past Surgical History: Hysterectomy Past Anesthesia/Blood Transfusion Reactions: No Reported Reaction Past Psychological History: No Psychological Hx Reported Smoking Status: Never smoker Past Alcohol Use History: None Reported Past Drug Use History: None Reported - Past Family History Mother Family Medical History: No Reported History General Exam - General Exam Comments Initial Comments: This is a well-developed well-nourished awake alert oriented 3 female General appearance: alert, anxious Head exam: Present: atraumatic, normocephalic, normal inspection Eye exam: Present: normal appearance, PERRL, EOMI. Absent: scleral icterus, conjunctival injection, periorbital swelling ENT exam: Present: mucous membranes dry Neck exam: Present: normal inspection, full ROM, other. Absent: tenderness, meningismus, lymphadenopathy Respiratory exam: Present: wheezes, decreased breath sounds (No stridor JVD or bruits). Absent: respiratory distress, rales, rhonchi, stridor Cardiovascular Exam: Present: regular rate, normal rhythm, normal heart sounds. Absent: systolic murmur, diastolic murmur, rubs, gallop, clicks GI/Abdominal exam: Present: soft, normal bowel sounds. Absent: distended, tenderness, guarding, rebound, rigid, bruit, pulsatile mass Extremities exam: Present: normal inspection, full ROM, normal capillary refill. Absent: tenderness, pedal edema, joint swelling, calf tenderness Back exam: Present: normal inspection Neurological exam: Present: alert, oriented X3, CN II-XII intact Psychiatric exam: Present: normal affect, normal mood Skin exam: Present: warm, dry, intact, normal color. Absent: rash Course Vital Signs 06/20/21 06/20/21 06/20/21 07:54 09:24 09:33 Temperature 97.6 F Pulse Rate 78 82 81 Respiratory 24 20 20 Rate Blood Pressure 149/80 O2 Sat by Pulse 97 Oximetry 06/20/21 10:24 Temperature Pulse Rate Respiratory 18 Rate Blood Pressure O2 Sat by Pulse 96 Oximetry Medical Decision Making - Medical Decision Making The patient did receive a further nebulizer treatment with improvement she is able tolerate ambulation well she would like to go home he was offered admission. Return parameters discussed she will be discharged we placed on a short course of steroids she does have her inhalation medicine at home. - Lab Data Result diagrams: 06/20/21 07:56 06/20/21 07:56 Lab Results 06/20/21 06/20/21 06/20/21 Range/Units 07:56 07:56 07:56 WBC 9.3 (3.8-10.6) k/uL RBC 4.79 (3.80-5.40) m/uL Hgb 14.9 (11.4-16.0) gm/dL Hct 44.5 (34.0-46.0) % MCV 92.9 (80.0-100.0) fL MCH 31.1 (25.0-35.0) pg MCHC 33.4 (31.0-37.0) g/dL RDW 13.9 (11.5-15.5) % Plt Count 296 (150-450) k/uL MPV 7.2 Neutrophils % 63 % Lymphocytes % 22 % Monocytes % 5 % Eosinophils % 7 % Basophils % 1 % Neutrophils # 5.9 (1.3-7.7) k/uL Lymphocytes # 2.1 (1.0-4.8) k/uL Monocytes # 0.5 (0-1.0) k/uL Eosinophils # 0.7 (0-0.7) k/uL Basophils # 0.1 (0-0.2) k/uL PT 10.9 (9.0-12.0) sec INR 1.0 (<1.2) APTT 23.5 (22.0-30.0) sec D-Dimer 0.18 (<0.60) mg/L FEU Sodium 139 (137-145) mmol/L Potassium 3.8 (3.5-5.1) mmol/L Chloride 105 (98-107) mmol/L Carbon Dioxide 27 (22-30) mmol/L Anion Gap 7 mmol/L BUN 30 H (7-17) mg/dL Creatinine 0.86 (0.52-1.04) mg/dL Est GFR (CKD-EPI)AfAm 73 (>60 ml/min/1.73 sqM) Est GFR (CKD-EPI)NonAf 63 (>60 ml/min/1.73 sqM) Glucose 108 H (74-99) mg/dL Plasma Lactic Acid Jhonathan (0.7-2.0) mmol/L Calcium 9.7 (8.4-10.2) mg/dL Magnesium 1.9 (1.6-2.3) mg/dL Total Bilirubin 0.4 (0.2-1.3) mg/dL AST 21 (14-36) U/L ALT 11 (4-34) U/L Alkaline Phosphatase 63 (38-126) U/L Creatine Kinase 92 (30-135) U/L Troponin I (0.000-0.034) ng/mL Total Protein 6.2 L (6.3-8.2) g/dL Albumin 3.8 (3.5-5.0) g/dL 06/20/21 06/20/21 Range/Units 07:56 07:56 WBC (3.8-10.6) k/uL RBC (3.80-5.40) m/uL Hgb (11.4-16.0) gm/dL Hct (34.0-46.0) % MCV (80.0-100.0) fL MCH (25.0-35.0) pg MCHC (31.0-37.0) g/dL RDW (11.5-15.5) % Plt Count (150-450) k/uL MPV Neutrophils % % Lymphocytes % % Monocytes % % Eosinophils % % Basophils % % Neutrophils # (1.3-7.7) k/uL Lymphocytes # (1.0-4.8) k/uL Monocytes # (0-1.0) k/uL Eosinophils # (0-0.7) k/uL Basophils # (0-0.2) k/uL PT (9.0-12.0) sec INR (<1.2) APTT (22.0-30.0) sec D-Dimer (<0.60) mg/L FEU Sodium (137-145) mmol/L Potassium (3.5-5.1) mmol/L Chloride (98-107) mmol/L Carbon Dioxide (22-30) mmol/L Anion Gap mmol/L BUN (7-17) mg/dL Creatinine (0.52-1.04) mg/dL Est GFR (CKD-EPI)AfAm (>60 ml/min/1.73 sqM) Est GFR (CKD-EPI)NonAf (>60 ml/min/1.73 sqM) Glucose (74-99) mg/dL Plasma Lactic Acid Jhonathan 1.9 (0.7-2.0) mmol/L Calcium (8.4-10.2) mg/dL Magnesium (1.6-2.3) mg/dL Total Bilirubin (0.2-1.3) mg/dL AST (14-36) U/L ALT (4-34) U/L Alkaline Phosphatase (38-126) U/L Creatine Kinase (30-135) U/L Troponin I 0.014 (0.000-0.034) ng/mL Total Protein (6.3-8.2) g/dL Albumin (3.5-5.0) g/dL - EKG Data -: EKG Interpreted by Me EKG shows normal: sinus rhythm EKG Comments: Sinus rhythm with premature supraventricular complexes rate 76 CA interval 200 QRS duration 84 QT since QTC 408/459 that anterior fascicular block noted - Radiology Data Radiology results: report reviewed (Imaging reviewed no evidence of acute findings), image reviewed Disposition Clinical Impression: Acute exacerbation of chronic obstructive pulmonary disease Disposition: HOME SELF-CARE Condition: Good Instructions (If sedation given, give patient instructions): COPD (Chronic Obstructive Pulmonary Disease) (ED) Prescriptions: predniSONE [Deltasone] 20 mg PO BID #10 tab Is patient prescribed a controlled substance at d/c from ED?: No Referrals: Chaitanya Lainez MD [Primary Care Provider] - 1-2 days
[2021-06-20 07:59] VITALS: TEMP 97.6
[2021-06-20 08:10] LABS: Basophils # (A) 0.1 k/uL (0-0.2); Basophils % (A) 1 %; Eosinophils # (A) 0.7 k/uL (0-0.7); Eosinophils % (A) 7 %; HCT 44.5 % (34.0-46.0); HGB 14.9 gm/dL (11.4-16.0); Lymphocytes # (A) 2.1 k/uL (1.0-4.8); Lymphocytes % (A) 22 %; MCH 31.1 pg (25.0-35.0); MCHC 33.4 g/dL (31.0-37.0); MCV 92.9 fL (80.0-100.0); Mean Platelet Volume 7.2; Monocytes # (A) 0.5 k/uL (0-1.0); Monocytes % (A) 5 %; Neutrophils # (A) 5.9 k/uL (1.3-7.7); Neutrophils % (A) 63 %; Platelet Count 296 k/uL (150-450); RBC 4.79 m/uL (3.80-5.40); RDW 13.9 % (11.5-15.5); WBC 9.3 k/uL (3.8-10.6)
[2021-06-20 08:20] LABS: Albumin 3.8 g/dL (3.5-5.0); Calcium 9.7 mg/dL (8.4-10.2); Magnesium 1.9 mg/dL (1.6-2.3); Potassium 3.8 mmol/L (3.5-5.1); Total Bilirubin 0.4 mg/dL (0.2-1.3); Total Protein 6.2 g/dL (6.3-8.2)
[2021-06-20 08:28] LABS: Partial Thromboplastin Time 23.5 sec (22.0-30.0); Prothrombin Time 10.9 sec (9.0-12.0)
--- NOTE | 2021-06-20 08:54 | XR ---
EXAMINATION TYPE: XR chest 2V DATE OF EXAM: 06/20/2021 COMPARISON: Chest x-ray December 27, 2020. CTA chest November 2020 HISTORY: History of COPD with shortness of breath TECHNIQUE: Frontal and lateral views of the chest are obtained. FINDINGS: There is background chronic emphysematous change and pulmonary fibrotic change without dwight picious new focal air space opacity, pleural effusion, or pneumothorax seen. The cardiac silhouette size is stable and upper limits of normal. The osseous structures remain demineralized. Underlying scoliosis is redemonstrated. IMPRESSION: Chronic changes without new acute pulmonary process.
[2021-06-20] MEDS ORDERED: IPRATROPIUM-ALBUTEROL 3 ML NEB INHALATION STA (09:10)
[2021-06-20 11:41] VITALS: BP 144/78; PULSE 84; RESP 20
== END 2021-06-20 11:41 | disposition home or self-care (01) ==
LOC: EC 07:28
DX: J44.1 Chronic obstructive pulmonary disease with (acute) exacerbation (principal); I10 Essential (primary) hypertension; Z79.51 Long term (current) use of inhaled steroids
CPT/HCPCS: 36415; 71046; 80053; 82550; 83605; 83735; 83880; 84484; 85025; 85379; 85610; 85730; 93005; 94640; 96360; 96361; 99285

== ENCOUNTER 2022-06-17 10:14 | Emergency (ER) | payer MEDICARE ==
[2022-06-17] MEDS ORDERED: HYDROcodone/APAP 7.5-325MG 1 EACH TAB PO ONE (11:11)
[2022-06-17 12:39] LABS: Appearance,Urine Clear (Clear); Bilirubin,Urine Negative (Negative); Blood,Urine Negative (Negative); Color,Urine Yellow; Glucose,Urine (UA) Negative (Negative); Ketones,Urine 1+ (Negative); Leukocyte Esterase,Urine Negative (Negative); Nitrite,Urine Negative (Negative); PH, Urine 6.5 (5.0-8.0); Protein,Urine Negative (Negative); Specific Gravity,Urine 1.014 (1.001-1.035); Urobilinogen,Urine <2.0 mg/dL (<2.0)
--- NOTE | 2022-06-17 13:03 | ED ---
Extremity Problem HPI - General Chief complaint: Extremity Problem,Nontraumatic Stated complaint: hip pain Time Seen by Provider: 06/17/22 11:06 Source: patient Mode of arrival: ambulatory Limitations: no limitations - History of Present Illness Initial comments: Patient is an 86-year-old female presenting with chief complaint of bilateral hip pain. Patient was seen here recently for the same complaint, she was instructed to follow-up with her PCP but never did. Patient has been taking pain medication at home. Patient states that her pain was improved for a while but recently it has been bothering her again. It bothers her mainly when she is lying down. She denies any injury or trauma. She denies any abdominal pain, fever, chills, nausea, vomiting, chest pain, shortness of breath, dysuria, hematuria, urgency, frequency, diarrhea, hematochezia, melena - Related Data Home Medications Medication Instructions Recorded Confirmed Budesonide-Formot 160-4.5 Mcg 2 puff INHALATION RT-BID 12/27/20 06/20/21 [Symbicort 160-4.5 Mcg Inhaler] Rivaroxaban [Xarelto] 20 mg PO AC-BRKFST 06/20/21 06/20/21 predniSONE 5 mg PO AC-BRKFST 06/20/21 06/20/21 Previous Rx's Medication Instructions Recorded predniSONE [Deltasone] 20 mg PO BID #10 tab 06/20/21 Allergies Allergy/AdvReac Type Severity Reaction Status Date / Time No Known Allergies Allergy Verified 06/17/22 10:20 Review of Systems ROS Statement: Those systems with pertinent positive or pertinent negative responses have been documented in the HPI. ROS Other: All systems not noted in ROS Statement are negative. Past Medical History Past Medical History: Asthma, COPD, GERD/Reflux, Hyperlipidemia, Hypertension, Pneumonia Additional Past Medical History / Comment(s): states pneumonia May 2018 and had 6 falls at that time (states legs just gave out), pt currently denies nay falls in the last 6 months. SOB with activity, Hx of kidney stone, states weight loss due to stomach pain- which has improved. History of Any Multi-Drug Resistant Organisms: None Reported Past Surgical History: Hysterectomy Past Anesthesia/Blood Transfusion Reactions: No Reported Reaction Past Psychological History: No Psychological Hx Reported Smoking Status: Never smoker Past Alcohol Use History: None Reported Past Drug Use History: None Reported - Past Family History Mother Family Medical History: No Reported History General Exam Limitations: no limitations General appearance: alert, in no apparent distress Head exam: Present: atraumatic, normocephalic, normal inspection Eye exam: Present: normal appearance, EOMI. Absent: scleral icterus, periorbital swelling Neck exam: Present: normal inspection Respiratory exam: Present: normal lung sounds bilaterally. Absent: respiratory distress, wheezes, rales, rhonchi, stridor Cardiovascular Exam: Present: regular rate, normal rhythm, normal heart sounds. Absent: systolic murmur, diastolic murmur, rubs, gallop, clicks Neurological exam: Present: alert, oriented X3, CN II-XII intact Psychiatric exam: Present: normal affect, normal mood Skin exam: Present: warm, dry, intact, normal color. Absent: rash Course Vital Signs 06/17/22 06/17/22 10:17 13:30 Temperature 98 F 98.1 F Pulse Rate 72 65 Respiratory 20 16 Rate Blood Pressure 163/71 151/74 O2 Sat by Pulse 95 95 Oximetry Medical Decision Making - Medical Decision Making Patient is an 86-year-old female presenting with chief complaint of bilateral hip pain. Pain is been ongoing for a few weeks. No injury or trauma. Patient received x-rays her previous visit which were negative. On examination there is some pain on palpation. Urine shows no sign of infection or blood. Patient is given pain medication. She reports improvement in her pain. She appears stable for discharge with outpatient follow-up at this time. Follow-up with PCP. Report back to ER with any new or worsening symptoms. Discussed return parameters and answered all questions. Patient conveyed verbal understanding and agreed to the plan. I discussed this case in detail with my attending Dr. Temple - Lab Data Lab Results 06/17/22 Range/Units 11:38 Urine Color Yellow Urine Appearance Clear (Clear) Urine pH 6.5 (5.0-8.0) Ur Specific [place] 1.014 (1.001-1.035) Urine Protein Negative (Negative) Urine Glucose (UA) Negative (Negative) Urine Ketones 1+ H (Negative) Urine Blood Negative (Negative) Urine Nitrite Negative (Negative) Urine Bilirubin Negative (Negative) Urine Urobilinogen <2.0 (<2.0) mg/dL Ur Leukocyte Esterase Negative (Negative) Disposition Clinical Impression: Hip pain Disposition: HOME SELF-CARE Condition: Good Instructions (If sedation given, give patient instructions): Hip Pain (ED) Additional Instructions: Follow-up with PCP. Report back to ER with any new or worsening symptoms. Is patient prescribed a controlled substance at d/c from ED?: No Referrals: Josue Martinez MD [Primary Care Provider] - 1-2 days Time of Disposition: 13:15
[2022-06-17 14:00] VITALS: BP 151/74; PULSE 65; RESP 16; TEMP 98.1
== END 2022-06-17 13:30 | disposition home or self-care (01) ==
LOC: EC 10:14
DX: M25.551 Pain in right hip (principal); M25.552 Pain in left hip; J44.9 Chronic obstructive pulmonary disease, unspecified; E78.5 Hyperlipidemia, unspecified; I10 Essential (primary) hypertension; Z79.52 Long term (current) use of systemic steroids
CPT/HCPCS: 81003; 99284

== ENCOUNTER 2022-09-18 08:45 | Inpatient (IN) | payer MEDICARE ==
[2022-09-18] MEDS ORDERED: methylPREDNISolone SOD SUCCI 125 MG/2 ML VIAL IV STA (08:53)
[2022-09-18] MEDS ORDERED: IPRATROPIUM-ALBUTEROL 3 ML NEB INHALATION STA (08:53)
--- NOTE | 2022-09-18 08:58 | ED ---
General Adult HPI - General Chief complaint: Shortness of Breath Stated complaint: SOB Time Seen by Provider: 09/18/22 08:45 Source: patient, EMS, RN notes reviewed, old records reviewed Mode of arrival: EMS Limitations: no limitations - History of Present Illness Initial comments: This is an 86-year-old female who presents emergency Department with a history of COPD. Patient went to sit on the toilet fell between the toilet along was unable to get up. Ambulance was called. When fire arrived she was breathing quite rapidly and stated she was short of breath. Initially the patient did not want to come to the hospital but they convinced her to come. Patient denies any fevers or chills per patient denies any significant cough. Patient denies any chest pain or palpitations. Patient denies abdominal pain patient denies nausea vomiting diarrhea. Patient states she just has to get her breathing strength and then she can go home. Patient denies any pedal edema or calf pain. Patient states he only thing she seemed to hurt was her left hand and there is a small cut on the fifth and fourth digit because of her rings patient denies actual tenderness on any aspect of her hands or fingers. Patient to move all 4 extremities she states - Related Data Home Medications Medication Instructions Recorded Confirmed Baclofen 5 mg PO TID 07/20/22 07/21/22 Lidocaine 5% Patch [Lidoderm 5% 1 patch TRANSDERM DAILY 07/20/22 07/21/22 Patch] predniSONE 10 mg PO DAILY 07/20/22 07/21/22 traMADol HCL 50 mg PO Q8H 07/20/22 07/21/22 Previous Rx's Medication Instructions Recorded Albuterol Inhaler [Ventolin Hfa 2 puff INHALATION RT-QID PRN #1 07/23/22 Inhaler] inch Ascorbic Acid [Vitamin C] 1,000 mg PO DAILY tab 07/23/22 Cephalexin [Keflex] 500 mg PO Q12HR 2 Days #4 cap 07/23/22 Cholecalciferol [Vitamin D3 (125 125 mcg PO DAILY tab 07/23/22 Mcg = 5000 Iu)] Zinc Sulfate [Orazinc] 220 mg PO DAILY cap 07/23/22 predniSONE [Deltasone] 60 mg PO DAILY #15 tab 07/23/22 Allergies Allergy/AdvReac Type Severity Reaction Status Date / Time No Known Allergies Allergy Verified 09/18/22 10:44 Review of Systems ROS Statement: Those systems with pertinent positive or pertinent negative responses have been documented in the HPI. ROS Other: All systems not noted in ROS Statement are negative. Past Medical History Past Medical History: Asthma, COPD, GERD/Reflux, Hyperlipidemia, Hypertension, Pneumonia Additional Past Medical History / Comment(s): states pneumonia May 2018 and had 6 falls at that time (states legs just gave out), pt currently denies nay falls in the last 6 months. SOB with activity, Hx of kidney stone, states weight loss due to stomach pain- which has improved. History of Any Multi-Drug Resistant Organisms: None Reported Past Surgical History: Hysterectomy Past Anesthesia/Blood Transfusion Reactions: No Reported Reaction Past Psychological History: No Psychological Hx Reported Smoking Status: Never smoker Past Alcohol Use History: None Reported Past Drug Use History: None Reported - Past Family History Mother Family Medical History: Unable to Obtain Additional Family Medical History / Comment(s): Due to mental status General Exam - General Exam Comments Initial Comments: GENERAL: Patient is well-developed and well-nourished. Patient is nontoxic and well- hydrated and is in mild distress. ENT: Neck is soft and supple. No significant lymphadenopathy is noted. Oropharynx is clear. Moist mucous membranes. Neck has full range of motion without eliciting any pain. EYES: The sclera were anicteric and conjunctiva were pink and moist. Extraocular movements were intact and pupils were equal round and reactive to light. Eyel ids were unremarkable. PULMONARY: Patient has expiratory wheezing. CARDIOVASCULAR: There is a regular rate and rhythm without any murmurs gallops or rubs. ABDOMEN: Soft and nontender with normal bowel sounds. SKIN: Laceration over the posterior aspect of the proximal phalanx of the fifth and fourth digit each measuring 0.5 cm. NEUROLOGIC: Patient is alert and oriented x3. Cranial nerves II through XII are grossly intact. Motor and sensory are also intact. Normal speech, volume and content. Symmetrical smile. Cerebellar exam grossly intact. MUSCULOSKELETAL: Normal extremities with adequate strength and full range of motion. No lower extremity swelling or edema. No calf tenderness. Patient has a small laceration to the base of the fifth and fourth finger measuring each 0.5 cm LYMPHATICS: No significant lymphadenopathy is noted PSYCHIATRIC: Normal psychiatric evaluation. Normal interpersonal interactions appears functionally intact in deals appropriately with others. No signs of depression. No signs of anxiety. No delusions. No hallucinations. Limitations: no limitations Course Vital Signs 09/18/22 09/18/22 09/18/22 08:47 09:00 10:03 Temperature 97.1 F L Pulse Rate 88 80 Respiratory 26 H 26 H Rate Blood Pressure 119/57 O2 Sat by Pulse 100 Oximetry 09/18/22 09/18/22 10:13 10:21 Temperature Pulse Rate 80 74 Respiratory 30 H Rate Blood Pressure 144/66 O2 Sat by Pulse 99 Oximetry Procedures - Laceration Laceration #1 Consent Obtained: verbal consent Indication: laceration Site: other (Finger fifth) Description: linear Depth: simple, single layer Pre-repair: wound explored, irrigated extensively Size of Sutures: other (Exofin) Laceration #2 Consent Obtained: verbal consent Indication: laceration Site: other (Finger fourth) Description: linear Depth: simple, single layer Pre-repair: wound explored Size of Sutures: other (Exofin) Medical Decision Making - Medical Decision Making EKG was interpreted by myself. EKG shows a sinus rhythm at 80 bpm MA interval is 221 QRSs 85 Q-T intervals 373 QTC is 49. Patient's EKG shows no ST segment elevation or depression. Patient received a breathing treatment from EMS as well as us Patient was evaluated again by myself she continues to be very tachypneic and have extra wheezing. I informed the patient to be admitted. X-rays interpreted by myself. X-ray shows a small area of potential consolidation on the lateral film. I will start the patient on antibiotics as precautionary measure. Spoke with the [facility] agreed to admit the patient admitted the patient I consult pulmonary.. Patient also received steroids was. X-ray of the head was interpreted by me. X-ray of the hand I see no fractures of the hand. - Lab Data Result diagrams: 09/18/22 09:00 09/18/22 09:00 Lab Results 09/18/22 09/18/22 09/18/22 Range/Units 09:00 09:00 09:00 WBC 9.2 (3.8-10.6) k/uL RBC 4.02 (3.80-5.40) m/uL Hgb 12.2 (11.4-16.0) gm/dL Hct 37.5 (34.0-46.0) % MCV 93.3 (80.0-100.0) fL MCH 30.4 (25.0-35.0) pg MCHC 32.5 (31.0-37.0) g/dL RDW 15.8 H (11.5-15.5) % Plt Count 241 (150-450) k/uL MPV 7.8 Neutrophils % 76 % Lymphocytes % 16 % Monocytes % 4 % Eosinophils % 2 % Basophils % 0 % Neutrophils # 7.0 (1.3-7.7) k/uL Lymphocytes # 1.5 (1.0-4.8) k/uL Monocytes # 0.4 (0-1.0) k/uL Eosinophils # 0.2 (0-0.7) k/uL Basophils # 0.0 (0-0.2) k/uL Hypochromasia Slight PT 10.2 (9.0-12.0) sec INR 1.0 (<1.2) APTT 20.3 L (22.0-30.0) sec Sodium 141 (137-145) mmol/L Potassium 3.9 (3.5-5.1) mmol/L Chloride 106 (98-107) mmol/L Carbon Dioxide 27 (22-30) mmol/L Anion Gap 8 mmol/L BUN 19 H (7-17) mg/dL Creatinine 0.81 (0.52-1.04) mg/dL Est GFR (CKD-EPI)AfAm 78 (>60 ml/min/1.73 sqM) Est GFR (CKD-EPI)NonAf 67 (>60 ml/min/1.73 sqM) Glucose 96 (74-99) mg/dL Lactic Ac Sepsis Rflx Plasma Lactic Acid Jhonathan (0.7-2.0) mmol/L Calcium 8.6 (8.4-10.2) mg/dL Magnesium 2.0 (1.6-2.3) mg/dL Total Bilirubin 0.8 (0.2-1.3) mg/dL AST 19 (14-36) U/L ALT 14 (4-34) U/L Alkaline Phosphatase 78 (38-126) U/L Troponin I (0.000-0.034) ng/mL Total Protein 6.3 (6.3-8.2) g/dL Albumin 3.6 (3.5-5.0) g/dL 12/06/22 12/06/22 12/06/22 Range/Units 09:00 09:00 10:00 WBC (3.8-10.6) k/uL RBC (3.80-5.40) m/uL Hgb (11.4-16.0) gm/dL Hct (34.0-46.0) % MCV (80.0-100.0) fL MCH (25.0-35.0) pg MCHC (31.0-37.0) g/dL RDW (11.5-15.5) % Plt Count (150-450) k/uL MPV Neutrophils % % Lymphocytes % % Monocytes % % Eosinophils % % Basophils % % Neutrophils # (1.3-7.7) k/uL Lymphocytes # (1.0-4.8) k/uL Monocytes # (0-1.0) k/uL Eosinophils # (0-0.7) k/uL Basophils # (0-0.2) k/uL Hypochromasia PT (9.0-12.0) sec INR (<1.2) APTT (22.0-30.0) sec Sodium (137-145) mmol/L Potassium (3.5-5.1) mmol/L Chloride (98-107) mmol/L Carbon Dioxide (22-30) mmol/L Anion Gap mmol/L BUN (7-17) mg/dL Creatinine (0.52-1.04) mg/dL Est GFR (CKD-EPI)AfAm (>60 ml/min/1.73 sqM) Est GFR (CKD-EPI)NonAf (>60 ml/min/1.73 sqM) Glucose (74-99) mg/dL Lactic Ac Sepsis Rflx Y Plasma Lactic Acid Jhonathan 2.9 H* (0.7-2.0) mmol/L Calcium (8.4-10.2) mg/dL Magnesium (1.6-2.3) mg/dL Total Bilirubin (0.2-1.3) mg/dL AST (14-36) U/L ALT (4-34) U/L Alkaline Phosphatase (38-126) U/L Troponin I 0.017 (0.000-0.034) ng/mL Total Protein (6.3-8.2) g/dL Albumin (3.5-5.0) g/dL Critical Care Time Critical Care Time: Yes Total Critical Care Time: 35 Disposition Clinical Impression: Asthma exacerbation in COPD, Laceration of multiple sites of hand and fingers, Fall Disposition: ADMITTED IP TO THIS HOSP Time of Disposition: 10:49
[2022-09-18 09:23] LABS: Basophils % (A) 0 %; Eosinophils # (A) 0.2 k/uL (0-0.7); Eosinophils % (A) 2 %; HCT 37.5 % (34.0-46.0); HGB 12.2 gm/dL (11.4-16.0); Hypochromasia Slight; Lymphocytes # (A) 1.5 k/uL (1.0-4.8); Lymphocytes % (A) 16 %; MCH 30.4 pg (25.0-35.0); MCHC 32.5 g/dL (31.0-37.0); MCV 93.3 fL (80.0-100.0); Mean Platelet Volume 7.8; Monocytes # (A) 0.4 k/uL (0-1.0); Monocytes % (A) 4 %; Neutrophils % (A) 76 %; Platelet Count 241 k/uL (150-450); RBC 4.02 m/uL (3.80-5.40); RDW 15.8 % (11.5-15.5); WBC 9.2 k/uL (3.8-10.6)
[2022-09-18 09:37] LABS: Prothrombin Time 10.2 sec (9.0-12.0)
[2022-09-18 09:42] LABS: Albumin 3.6 g/dL (3.5-5.0); Calcium 8.6 mg/dL (8.4-10.2); Potassium 3.9 mmol/L (3.5-5.1); Total Bilirubin 0.8 mg/dL (0.2-1.3); Total Protein 6.3 g/dL (6.3-8.2)
[2022-09-18 10:03] LABS: Partial Thromboplastin Time 20.3 sec (22.0-30.0)
--- NOTE | 2022-09-18 10:03 | XR ---
EXAMINATION TYPE: XR chest 2V DATE OF EXAM: 09/18/2022 COMPARISON: 07/20/2022 HISTORY: 86-year-old female shortness of breath, difficulty breathing TECHNIQUE: PA and lateral views FINDINGS: Heart borderline in size. Hyperinflation. No pneumothorax or pleural effusion. Possible fo samantha density posterior lower lung on the lateral view. IMPRESSION: 1. COPD and borderline heart size. 2. Possible focal opacity posterior base on the lateral view. Unable to exclude a developing nodule v ersus summation artifact. Recommend 3-4 week follow-up PA and lateral view radiograph to reassess. If the finding persists, CT may be indicated.
[2022-09-18] MEDS ORDERED: TOPICAL SKIN ADHESIVE 1 EACH AMP TOPICAL ONE ×2 (10:30→11:07)
[2022-09-18] MEDS ORDERED: DIPH,PERTUS(ACELL)TETVAC-LF 0.5 ML VIAL IM ONE (10:31)
[2022-09-18] MEDS ORDERED: NALOXONE 0.4 MG/ML 1 ML VIAL IVP PRN (10:52)
--- NOTE | 2022-09-18 12:04 | XR ---
EXAMINATION TYPE: XR hand complete 3 views LT DATE OF EXAM: 09/18/2022 Comparison: None Clinical History: 86-year-old female fall this morning, pain, bruising, and abrasions especially four th and fifth MCP joints, Trauma Findings: Marked osteopenia. Moderate osteoarthritic change first CMC joint. Mild degenerative change throughou t the DIP joints. Allowing for the degree of osteopenia. No acute fracture, subluxation, dislocation is seen. Possible small marginal erosion radial aspect of the second proximal phalangeal base of ques tionable clinical significance. Correlation can be made to exclude any underlying inflammatory arthro chuy. Impression: Osteopenia. Scattered mild osteoarthritic change. No acute osseous abnormality seen. There may be a small marginal erosion at the second proximal phalangeal base. Query any history of un derlying inflammatory arthropathy/rheumatoid arthritis.
[2022-09-18] MEDS: methylPREDNISolone SOD SUCCI 125 MG/2 ML VIAL IV SCH ×2 (12:20→17:26)
[2022-09-18] MEDS ORDERED: ALBUTEROL NEBULIZED 2.5 MG/3 ML INHALATION PRN (13:23)
[2022-09-18] MEDS ORDERED: SYMBICORT 160-4.5 MCG INHALER INHALATION PRN (13:23)
[2022-09-18] MEDS ORDERED: ACETAMINOPHEN TAB 500 MG TAB PO PRN (13:23)
[2022-09-18] MEDS ORDERED: DEXTROSE 50% SYRINGE 50 ML IVP PRN ×2 (13:24)
[2022-09-18] MEDS: IPRATROPIUM-ALBUTEROL 3 ML NEB INHALATION SCH ×3 (14:09→19:44)
[2022-09-18 17:21] LABS: Glucose,Whole Blood 263 mg/dL (70-110)
[2022-09-18] MEDS: INSULIN ASPART (NovoLOG) 100 UNIT/ML VIAL SQ SCH ×2 (17:26→21:02)
--- NOTE | 2022-09-18 18:49 | P.HPIM ---
History of Present Illness This is a pleasant 86 years old female with multiple medical problems as below. Patient is seen at bedside, tachypneic, she is fully awake and oriented, she knows she is in the hospital and she has insight into her illness. She states that she fell without losing consciousness and hurt her left hand and there is abrasion with no active bleeding in the base of the second finger. Patient main complaint is worsening dyspnea over the last few days. With no dyspnea. Also there is no pain or tenderness in her chest. Her field artillery operations specialist is Dr. Freitas. She denies any GI or urinary symptoms like Sigifredo abdominal pain or dysuria. No w eakness or numbness or dizziness. She is remote smoker, she says she smoked only for a few years. She denies alcohol or illicit drugs. Patient also noticed to be on xarelto, patient could not confirm if she is on xarelto or when she is taking it. Because of fall and no clear indication for the blood thinner for now we are going to hold it. Patient is afebrile. She is saturating 98% with oxygen via nasal cannula. Labs including CBC, INR, BMP are unremarkable. Plasma lactic acid slightly gracia vated at 2.9, glucose 263. Liver enzymes but elevated. Troponin is negative. Chest x-ray: COPD and borderline heart size. Possible focal opacity posterior base on the lateral view by radiologist. With recommendation for follow-up noted. Patient will be evaluated by field artillery operations specialist. And x-ray, left: Osteopenia no acute osseous abnormality EKG showing normal sinus rhythm at [address]-T changes She was started on bronchodilator IV steroids 1. And Solu-Medrol 60 mg and Augmentin. Review of Systems Review of systems CONSTITUTIONAL: No fever, no malaise, no fatigue. HEENT: No recent visual problems or hearing problems. Denied any sore throat. CARDIOVASCULAR: No orthopnea, PND, no palpitations, no syncope. PULMONARY: No chest wall tenderness, no hemoptysis. GASTROINTESTINAL: No diarrhea, no nausea, no vomiting, no abdominal pain. Normoactive bowel sounds. NEUROLOGICAL: No headaches, no weakness, no numbness. HEMATOLOGICAL: Denies any bleeding or petechiae. GENITOURINARY: Denies any burning micturition, frequency, or urgency. MUSCULOSKELETAL/RHEUMATOLOGICAL: Denies any joint pain, swelling, or any muscle pain. ENDOCRINE: Denies any polyuria or polydipsia. Past Medical History Past Medical History: Asthma, COPD, GERD/Reflux, Hyperlipidemia, Hypertension, Pneumonia Additional Past Medical History / Comment(s): states pneumonia May 2018 and had 6 falls at that time (states legs just gave out), pt currently denies nay falls in the last 6 months. SOB with activity, Hx of kidney stone, states weight loss due to stomach pain- which has improved. History of Any Multi-Drug Resistant Organisms: None Reported Past Surgical History: Hysterectomy Past Anesthesia/Blood Transfusion Reactions: No Reported Reaction Past Psychological History: No Psychological Hx Reported Smoking Status: Never smoker Past Alcohol Use History: None Reported Past Drug Use History: None Reported - Past Family History Mother Family Medical History: Unable to Obtain Additional Family Medical History / Comment(s): Due to mental status Medications and Allergies Home Medications Medication Instructions Recorded Confirmed Type predniSONE 10 mg PO Q48H 07/20/22 09/18/22 History Albuterol Inhaler [Ventolin Hfa 2 puff INHALATION RT-QID PRN #1 07/23/22 09/18/22 Rx Inhaler] inch Ascorbic Acid [Vitamin C] 1,000 mg PO DAILY tab 07/23/22 09/18/22 Rx Cholecalciferol [Vitamin D3 (125 125 mcg PO DAILY tab 07/23/22 09/18/22 Rx Mcg = 5000 Iu)] Zinc Sulfate [Orazinc] 220 mg PO DAILY cap 07/23/22 09/18/22 Rx Acetaminophen [Tylenol Extra 500 mg PO DAILY 09/18/22 09/18/22 History Strength] Budesonide/Formoterol Fumarate 2 puff INHALATION RT-DAILY PRN 09/18/22 09/18/22 History [Symbicort 160-4.5 Mcg Inhaler] Ipratropium-Albuterol Nebulize 3 ml INHALATION RT-DAILY 09/18/22 09/18/22 History [Duoneb 0.5 mg-3 mg/3 ml Soln] Rivaroxaban [Xarelto] 2.5 mg PO DAILY 09/18/22 09/18/22 History predniSONE 5 mg PO Q48H 09/18/22 09/18/22 History Allergies Allergy/AdvReac Type Severity Reaction Status Date / Time No Known Allergies Allergy Verified 09/18/22 13:11 Physical Exam Vitals: Vital Signs Temp Pulse Resp BP Pulse Ox 09/18/22 12:47 74 18 127/74 98 09/18/22 10:21 74 30 H 144/66 99 09/18/22 10:13 80 09/18/22 10:03 80 09/18/22 09:00 26 H 09/18/22 08:47 97.1 F L 88 26 H 119/57 100 Intake and Output 09/17/22 09/18/22 09/18/22 22:59 06:59 14:59 Other: Weight 63.503 kg -GENERAL: The patient is alert and oriented x3, not in any acute distress. Well developed, well nourished. Generalized weakness HEENT: Pupils are round and equally reacting to light. EOMI. No scleral icterus. No conjunctival pallor. Normocephalic, atraumatic. No pharyngeal erythema. No thyromegaly. CARDIOVASCULAR: S1 and S2 present. No murmurs, rubs, or gallops. -PULMONARY: Chest is clear to auscultation, expiratory wheezing . No crackles. ABDOMEN: Soft, nontender, nondistended, normoactive bowel sounds. No palpable organomegaly. MUSCULOSKELETAL: No joint swelling or deformity. EXTREMITIES: No cyanosis, clubbing, or pedal edema. NEUROLOGICAL: Gross neurological examination did not reveal any focal deficits. SKIN: No rashes. no petechiae. Results CBC & Chem 7: 09/18/22 09:00 09/18/22 09:00 Labs: Abnormal Lab Results - Last 24 Hours (Table) 09/18/22 09/18/22 09/18/22 Range/Units 09:00 09:00 09:00 RDW 15.8 H (11.5-15.5) % APTT 20.3 L (22.0-30.0) sec BUN 19 H (7-17) mg/dL Plasma Lactic Acid Jhonathan (0.7-2.0) mmol/L 09/18/22 Range/Units 09:00 RDW (11.5-15.5) % APTT (22.0-30.0) sec BUN (7-17) mg/dL Plasma Lactic Acid Jhonathan 2.9 H* (0.7-2.0) mmol/L Assessment and Plan Assessment: Acute COPD exacerbation and possible pneumonia with chest x-ray reported as focal opacity posterior base Generalized weakness Patient fell at home without losing consciousness. Hyperlipidemia Hypertension History of GERD Plan: Continue with bronchodilator Continue with Solu-Medrol Pulmonary team consult Continue with Augmentin Check pro-calcitonin Because of fall and no clear indication for the blood thinner for now we are goi ng to hold it. And put the patient on the neuro check Hold xarelto (patient does not know why she takes or if she is on blood thinner), patient is high risk for fall Check CT of the brain Labs and medication were reviewed.. Continue same treatment. Continue with symptomatic treatment. Resume home medication. Monitor lytes and vitals. DVT and GI prophylaxis. Further recommendations as per clinical course of the patient DVT prophylaxis: Mechanical, GI Prophylaxis: Pepcid PT/OT: Pending Prognosis is guarded Discussed with the staff
[2022-09-18 20:57] LABS: Glucose,Whole Blood 149 mg/dL (70-110)
[2022-09-18] MEDS ORDERED: FAMOTIDINE 20 MG/2 ML VIAL IV SCH (21:00)
--- NOTE | 2022-09-18 21:37 | CT ---
EXAMINATION TYPE: CT brain wo con DATE OF EXAM: 09/18/2022 COMPARISON: 07/20/2022 HISTORY: fall CT DLP: 1098.4 mGycm Automated exposure control for dose reduction was used. There is cerebral cortical atrophy. There is patchy hypodensity in the periventricular white matter. There is no mass effect or midline shift. No sign of intracranial hemorrhage. The calvarium is intact . There is 1 cm scalp mass in the right occipital region that is stable and consistent with sebaceous cyst. IMPRESSION: Cerebral atrophy and chronic small vessel ischemia. No acute intracranial abnormality. No change.
[2022-09-18] MEDS: AMOXIC-POT CLAV 875-125MG 1 EACH TAB PO SCH (22:06)
[2022-09-19] MEDS: methylPREDNISolone SOD SUCCI 125 MG/2 ML VIAL IV SCH ×4 (01:44→18:07)
[2022-09-19 05:53] LABS: Glucose,Whole Blood 179 mg/dL (70-110)
[2022-09-19] MEDS: INSULIN ASPART (NovoLOG) 100 UNIT/ML VIAL SQ SCH ×4 (06:12→20:21)
[2022-09-19] MEDS ORDERED: RIVAROXABAN 2.5 MG TABLET PO SCH (09:00)
[2022-09-19] MEDS: RIVAROXABAN 2.5 MG TABLET PO SCH (09:03)
[2022-09-19] MEDS: CHOLECALCIFEROL 125 MCG (5000 IU) TABLET PO SCH (09:03)
[2022-09-19] MEDS: ASCORBIC ACID 500 MG TAB PO SCH (09:03)
[2022-09-19] MEDS: ZINC SULFATE 220 MG CAP PO SCH (09:03)
[2022-09-19] MEDS: IPRATROPIUM-ALBUTEROL 3 ML NEB INHALATION SCH ×4 (10:10→20:11)
[2022-09-19] MEDS: AMOXIC-POT CLAV 875-125MG 1 EACH TAB PO SCH ×2 (10:13→20:04)
[2022-09-19 10:21] LABS: Basophils # (A) 0.01 X 10*3/uL (0.00-0.10); Basophils % (A) 0.1 %; Eosinophils # (A) 0 X 10*3/uL (0.04-0.35); Eosinophils % (A) 0 %; HGB 11.3 g/dL (12.0-15.0); Immature Grans, Automated 0.5 %; Lymphocytes % (A) 3.1 %; MCH 29.5 pg (27.0-32.0); MCHC 30.5 g/dL (32.0-37.0); MCV 96.6 fL (80.0-97.0); Mean Platelet Volume 10.5 fL (9.5-12.2); Monocytes # (A) 0.13 X 10*3/uL (0.20-1.00); Monocytes % (A) 1.3 %; NRBC Per 100 WBC 0 /100 WBCS (0.0-0.0); Neutrophils # (A) 9.26 X 10*3/uL (1.80-7.70); Platelet Count 231 X 10*3/uL (140-440); RBC 3.83 X 10*6/uL (4.10-5.20); RDW 16.4 % (11.5-14.5); WBC 9.75 X 10*3/uL (4.50-10.00)
[2022-09-19 10:35] LABS: African American GFR (CKD) 57.8 (60.0-200.0); Anion Gap 12.2 mmol/L (10.00-18.00); BUN/Creat Ratio 25.15 Ratio (12.00-20.00); Blood Urea Nitrogen 25.9 mg/dL (9.0-27.0); Calcium 9.4 mg/dL (8.7-10.3); Carbon Dioxide 23.2 mmol/L (20.0-27.5); Non-African American GFR(CKD) 49.9 (60.0-200.0); Potassium 5.3 mmol/L (3.5-5.5)
[2022-09-19 11:09] LABS: Glucose,Whole Blood 148 mg/dL (70-110)
--- NOTE | 2022-09-19 14:25 | P.CNPUL ---
History of Present Illness Consult date: 09/19/22 Requesting physician: Micha Dinero Reason for consult: dyspnea, COPD Chief complaint: Shortness of breath History of present illness: This is a pleasant 86-year-old female patient with a history of COPD and FEV1 value of 59% of predicted, gastroesophageal reflux disease, hyperlipidemia, hypertension, lifelong nonsmoker. She had been admitted back in July 2022 with CoVID pneumonia. She presented here to the emergency room yesterday after falling off the toilet and was unable to get up. EMS was called. She was breathing rapidly and was short of breath. Initially she didn't want to come to the hospital but came in after all. Did hurt her left hand. X-rays were negative for fractures. Computed tomography scan of the brain revealed no acute intracranial abnormality. Chest x-ray revealed evidence of COPD and borderline heart size. Possible focal opacity in the posterior bases and lateral view. Blood cultures reveal no growth. White count 9.7. Hemoglobin 11.3. Sodium 139 . Potassium 5.3. BUN 26. Creatinine 1.0. Pro calcitonin 0.15. She is seen today in consultation on the regular medical floor. She is currently sitting up in a chair at the bedside. Maintaining O2 saturations up to 100% on 2 L/m per nasal cannula. She's been initiated on antibiotics in the form of Augmentin, Symbicort, DuoNeb inhalations, IV Solu-Medrol. Anticoagulated with Xarelto. Review of Systems REVIEW OF SYSTEMS: CONSTITUTIONAL: Fall from toilet. Denies any recent significant weight loss or weight gain. EYES: Denies change in vision. EARS, NOSE, MOUTH, THROAT: Denies headaches, denies sore throat. CARDIOVASCULAR: Denies chest pain, palpitations or syncopal episodes. RESPIRATORY: Positive for shortness of breath, no cough, congestion or hemoptysis. GASTROINTESTINAL: Denies change in appetite, denies abdominal pain GENITOURINARY: Denies hematuria, denies infections. MUSKULOSKELETAL: Denies pain, denies swelling. INTEGUMENTARY: Denies rash, denies eczema. NEUROLOGICAL: Denies recent memory loss, no recent seizure activity. PSYCHIATRIC: Denies anxiety, denies depression. HEMATOLOGIC/LYMPHATIC: Denies anemia, denies enlarged lymph nodes. Past Medical History Past Medical History: Asthma, COPD, GERD/Reflux, Hyperlipidemia, Hypertension, Pneumonia Additional Past Medical History / Comment(s): states pneumonia May 2018 and had 6 falls at that time (states legs just gave out), pt currently denies nay falls in the last 6 months. SOB with activity, Hx of kidney stone, states weight loss due to stomach pain- which has improved. History of Any Multi-Drug Resistant Organisms: None Reported Past Surgical History: Hysterectomy Past Anesthesia/Blood Transfusion Reactions: No Reported Reaction Past Psychological History: No Psychological Hx Reported Smoking Status: Never smoker Past Alcohol Use History: None Reported Past Drug Use History: None Reported - Past Family History Mother Family Medical History: Unable to Obtain Additional Family Medical History / Comment(s): Due to mental status Medications and Allergies Home Medications Medication Instructions Recorded Confirmed Type predniSONE 10 mg PO Q48H 07/20/22 09/18/22 History Albuterol Inhaler [Ventolin Hfa 2 puff INHALATION RT-QID PRN #1 07/23/22 09/18/22 Rx Inhaler] inch Ascorbic Acid [Vitamin C] 1,000 mg PO DAILY tab 07/23/22 09/18/22 Rx Cholecalciferol [Vitamin D3 (125 125 mcg PO DAILY tab 07/23/22 09/18/22 Rx Mcg = 5000 Iu)] Zinc Sulfate [Orazinc] 220 mg PO DAILY cap 07/23/22 09/18/22 Rx Acetaminophen [Tylenol Extra 500 mg PO DAILY 09/18/22 09/18/22 History Strength] Budesonide/Formoterol Fumarate 2 puff INHALATION RT-DAILY PRN 09/18/22 09/18/22 History [Symbicort 160-4.5 Mcg Inhaler] Ipratropium-Albuterol Nebulize 3 ml INHALATION RT-DAILY 09/18/22 09/18/22 History [Duoneb 0.5 mg-3 mg/3 ml Soln] Rivaroxaban [Xarelto] 2.5 mg PO DAILY 09/18/22 09/18/22 History predniSONE 5 mg PO Q48H 09/18/22 09/18/22 History Allergies Allergy/AdvReac Type Severity Reaction Status Date / Time No Known Allergies Allergy Verified 09/18/22 13:11 Physical Exam Vitals: Vital Signs Temp Pulse Pulse Resp BP BP Pulse Ox 09/19/22 12:11 86 100 09/19/22 07:24 97.4 F L 68 22 141/79 100 09/19/22 02:00 97.7 F 84 17 132/75 98 09/18/22 19:56 82 09/18/22 19:55 97.9 F 79 18 98/59 97 09/18/22 19:46 80 09/18/22 16:42 84 18 124/81 97 09/18/22 15:15 98 30 H 98 09/18/22 14:22 84 Intake and Output 09/18/22 09/19/22 09/19/22 22:59 06:59 14:59 Intake Total 500 Balance 500 Intake: Oral 500 Other: Voiding Method Toilet # Voids 1 3 GENERAL EXAM: Alert, pleasant 86-year-old female, up in a chair at the bedside, on 2 L nasal cannula, comfortable in no apparent distress. HEAD: Normocephalic. EYES: Normal reaction of pupils, equal size. NOSE: Clear with pink turbinates. THROAT: No erythema or exudates. NECK: No masses, no JVD. CHEST: No chest wall deformity. LUNGS: Equal air entry with no crackles, wheeze, rhonchi or dullness. CVS: S1 and S2 normal with no audible murmur, regular rhythm. ABDOMEN: No hepatosplenomegaly, normal bowel sounds, no guarding or rigidity. SPINE: No scoliosis or deformity SKIN: No rashes CENTRAL NERVOUS SYSTEM: No focal deficits, tone is normal in all 4 extremities. EXTREMITIES: There is no peripheral edema. No clubbing, no cyanosis. Peripheral pulses are intact. Results - Laboratory Findings CBC and BMP: 09/19/22 06:55 09/19/22 06:55 PT/INR, D-dimer PT 10.2 sec (9.0-12.0) 09/18/22 09:00 INR 1.0 (<1.2) 09/18/22 09:00 Abnormal lab findings: Abnormal Labs 09/18/22 09/18/22 09/18/22 09:00 09:00 09:00 RBC Hgb Hct MCHC RDW 15.8 H Immature Gran # Neutrophils # Lymphocytes # Monocytes # Eosinophils # APTT 20.3 L BUN 19 H Est GFR (CKD-EPI)AfAm Est GFR (CKD-EPI)NonAf BUN/Creatinine Ratio Glucose POC Glucose (mg/dL) Plasma Lactic Acid Jhonathan Procalcitonin 09/18/22 09/18/22 09/18/22 09:00 17:20 20:55 RBC Hgb Hct MCHC RDW Immature Gran # Neutrophils # Lymphocytes # Monocytes # Eosinophils # APTT BUN Est GFR (CKD-EPI)AfAm Est GFR (CKD-EPI)NonAf BUN/Creatinine Ratio Glucose POC Glucose (mg/dL) 263 H 149 H Plasma Lactic Acid Jhonathan 2.9 H* Procalcitonin 09/19/22 09/19/22 09/19/22 05:51 06:55 06:55 RBC 3.83 L Hgb 11.3 L Hct 37.0 L MCHC 30.5 L RDW 16.4 H Immature Gran # 0.05 H Neutrophils # 9.26 H Lymphocytes # 0.30 L Monocytes # 0.13 L Eosinophils # 0 L APTT BUN Est GFR (CKD-EPI)AfAm Est GFR (CKD-EPI)NonAf BUN/Creatinine Ratio Glucose POC Glucose (mg/dL) 179 H Plasma Lactic Acid Jhonathan Procalcitonin 0.15 H 09/19/22 09/19/22 06:55 11:07 RBC Hgb Hct MCHC RDW Immature Gran # Neutrophils # Lymphocytes # Monocytes # Eosinophils # APTT BUN Est GFR (CKD-EPI)AfAm 57.8 L Est GFR (CKD-EPI)NonAf 49.9 L BUN/Creatinine Ratio 25.15 H Glucose 165 H POC Glucose (mg/dL) 148 H Plasma Lactic Acid Jhonathan Procalcitonin - Diagnostic Findings Chest x-ray: image reviewed Assessment and Plan Assessment: Acute exacerbation of chronic obstructive pulmonary disease Lifelong nonsmoker, may have had chemical exposure in her occupation to cause her COPD History of gastroesophageal reflux disease. History of hyperlipidemia. History of hypertension. Prior history of pneumonia. History of kidney stones. Plan: The patient was seen and evaluated This x-ray, labs and medications reviewed Continue DuoNeb inhalations, Symbicort Continue IV Solu-Medrol Continue Augmentin Titrate down the FiO2 as tolerated Probable discharge in the a.m. We will continue to follow and make further recommendations based on her clinical status I have personally seen and examined the patient, performed the documentation and the assessment and plan as written. Number of minutes spent on the visit: 20.
[2022-09-19 17:29] LABS: Glucose,Whole Blood 170 mg/dL (70-110)
--- NOTE | 2022-09-19 18:23 | P.PN ---
Subjective This is a pleasant 86 years old female with multiple medical problems as below. Patient is seen at bedside, tachypneic, she is fully awake and oriented, she knows she is in the hospital and she has insight into her illness. She states that she fell without losing consciousness and hurt her left hand and there is abrasion with no active bleeding in the base of the second finger. Patient main complaint is worsening dyspnea over the last few days. With no dyspnea. Also there is no pain or tenderness in her chest. Her vehicle body builder is Dr. Freitas. She denies any GI or urinary symptoms like Sigifredo abdominal pain or dysuria. No weakness or numbness or dizziness. She is remote smoker, she says she smoked only for a few years. She denies alcohol or illicit drugs. Patient also noticed to be on xarelto, patient could not confirm if she is on xarelto or when she is taking it. Because of fall and no clear indication for the blood thinner for now we are going to hold it. Patient is afebrile. She is saturating 98% with oxygen via nasal cannula. Labs including CBC, INR, BMP are unremarkable. Plasma lactic acid slightly elevated at 2.9, glucose 263. Liver enzymes but elevated. Troponin is negative. Chest x-ray: COPD and borderline heart size. Possible focal opacity posterior base on the lateral view by radiologist. With recommendation for follow-up noted. Patient will be evaluated by vehicle body builder. And x-ray, left: Osteopenia no acute osseous abnormality EKG showing normal sinus rhythm at [address]-T changes She was started on bronchodilator IV steroids 1. And Solu-Medrol 60 mg and Augmentin. 09/19/2022 Patient improving significantly she has less wheezing and this tachypneic or dyspneic. She is kept on Augmentin and Solu-Medrol Hemoglobin 12.3, monitor hemoglobin as an outpatient. Today I called the Mr. Vasquez at [phone], he was not available and his son Kenton because the phone and I discussed the case with him, he states that his mother was taken Xarelto small dose at home prior to hospitalization, this was prescribed for her by her PCP Dr. olmos ( dr. rudd is not her pcp as per son) CT of the brain is negative for acute process and she resumed her Xarelto. This asked today if she is fully awake and oriented and she denies any new neurological symptoms, no headache or dizziness or weakness or numbness. Objective - Vital Signs Vital signs: Vital Signs Temp 97.4 F L 09/19/22 07:24 Pulse 86 09/19/22 12:11 Resp 22 09/19/22 07:24 BP 141/79 09/19/22 07:24 Pulse Ox 100 09/19/22 12:11 FiO2 Intake & Output 09/18/22 09/19/22 09/19/22 18:59 06:59 18:59 Intake Total 500 Balance 500 Weight 63.503 kg Intake: Oral 500 Other: Voiding Method Toilet # Voids 3 - Exam GENERAL: The patient is alert and oriented x3, not in any acute distress. Well developed, well nourished. HEENT: Pupils are round and equally reacting to light. EOMI. No scleral icterus. No conjunctival pallor. Normocephalic, atraumatic. No pharyngeal erythema. No thyromegaly. CARDIOVASCULAR: S1 and S2 present. No murmurs, rubs, or gallops. -PULMONARY: Chest is clear to auscultation, bilateral scattered wheezing . No crepitation ABDOMEN: Soft, nontender, nondistended, normoactive bowel sounds. No palpable organomegaly. MUSCULOSKELETAL: No joint swelling or deformity. EXTREMITIES: No cyanosis, clubbing, or pedal edema. NEUROLOGICAL: Gross neurological examination did not reveal any focal deficits. SKIN: No rashes. no petechiae. - Labs CBC & Chem 7: 09/19/22 06:55 09/19/22 06:55 Labs: Abnormal Lab Results - Last 24 Hours (Table) 09/18/22 09/18/22 09/19/22 Range/Units 17:20 20:55 05:51 RBC (4.10-5.20) X 10*6/uL Hgb (12.0-15.0) g/dL Hct (37.2-46.3) % MCHC (32.0-37.0) g/dL RDW (11.5-14.5) % Immature Gran # (0.00-0.04) X 10*3/uL Neutrophils # (1.80-7.70) X 10*3/uL Lymphocytes # (0.90-5.00) X 10*3/uL Monocytes # (0.20-1.00) X 10*3/uL Eosinophils # (0.04-0.35) X 10*3/uL Est GFR (CKD-EPI)AfAm (60.0-200.0) Est GFR (CKD-EPI)NonAf (60.0-200.0) BUN/Creatinine Ratio (12.00-20.00) Ratio Glucose (70-110) mg/dL POC Glucose (mg/dL) 263 H 149 H 179 H (70-110) mg/dL Procalcitonin (0.02-0.09) ng/mL 09/19/22 09/19/22 09/19/22 Range/Units 06:55 06:55 06:55 RBC 3.83 L (4.10-5.20) X 10*6/uL Hgb 11.3 L (12.0-15.0) g/dL Hct 37.0 L (37.2-46.3) % MCHC 30.5 L (32.0-37.0) g/dL RDW 16.4 H (11.5-14.5) % Immature Gran # 0.05 H (0.00-0.04) X 10*3/uL Neutrophils # 9.26 H (1.80-7.70) X 10*3/uL Lymphocytes # 0.30 L (0.90-5.00) X 10*3/uL Monocytes # 0.13 L (0.20-1.00) X 10*3/uL Eosinophils # 0 L (0.04-0.35) X 10*3/uL Est GFR (CKD-EPI)AfAm 57.8 L (60.0-200.0) Est GFR (CKD-EPI)NonAf 49.9 L (60.0-200.0) BUN/Creatinine Ratio 25.15 H (12.00-20.00) Ratio Glucose 165 H (70-110) mg/dL POC Glucose (mg/dL) (70-110) mg/dL Procalcitonin 0.15 H (0.02-0.09) ng/mL 09/19/22 Range/Units 11:07 RBC (4.10-5.20) X 10*6/uL Hgb (12.0-15.0) g/dL Hct (37.2-46.3) % MCHC (32.0-37.0) g/dL RDW (11.5-14.5) % Immature Gran # (0.00-0.04) X 10*3/uL Neutrophils # (1.80-7.70) X 10*3/uL Lymphocytes # (0.90-5.00) X 10*3/uL Monocytes # (0.20-1.00) X 10*3/uL Eosinophils # (0.04-0.35) X 10*3/uL Est GFR (CKD-EPI)AfAm (60.0-200.0) Est GFR (CKD-EPI)NonAf (60.0-200.0) BUN/Creatinine Ratio (12.00-20.00) Ratio Glucose (70-110) mg/dL POC Glucose (mg/dL) 148 H (70-110) mg/dL Procalcitonin (0.02-0.09) ng/mL Microbiology - Last 24 Hours (Table) 09/18/22 09:04 Blood Culture - Preliminary Blood No Growth after 24 hours 09/18/22 08:45 Blood Culture - Preliminary Blood No Growth after 24 hours Assessment and Plan Assessment: Acute COPD exacerbation and possible pneumonia with chest x-ray reported as focal opacity posterior base Generalized weakness Patient fell at home without losing consciousness. Hyperlipidemia Hypertension History of GERD Plan: Continue with bronchodilator Continue with Solu-Medrol Pulmonary team consult Continue with Augmentin Check pro-calcitonin Because of fall and no clear indication for the blood thinner for now we are going to hold it. And put the patient on the neuro check Hold xarelto (patient does not know why she takes or if she is on blood thinner), patient is high risk for fall Check CT of the brain Labs and medication were reviewed.. Continue same treatment. Continue with symptomatic treatment. Resume home medication. Monitor lytes and vitals. DVT and GI prophylaxis. Further recommendations as per clinical course of the patient DVT prophylaxis: Mechanical, GI Prophylaxis: Pepcid PT/OT: Pending Prognosis is guarded Discussed with the staff
[2022-09-19 20:16] LABS: Glucose,Whole Blood 180 mg/dL (70-110)
[2022-09-19] MEDS ORDERED: FAMOTIDINE 20 MG TAB PO SCH (21:00)
[2022-09-20] MEDS: methylPREDNISolone SOD SUCCI 125 MG/2 ML VIAL IV SCH ×2 (00:42→06:31)
[2022-09-20 03:08] VITALS: RESP 18
[2022-09-20 06:25] LABS: Glucose,Whole Blood 158 mg/dL (70-110)
[2022-09-20] MEDS: INSULIN ASPART (NovoLOG) 100 UNIT/ML VIAL SQ SCH ×2 (06:32→12:37)
[2022-09-20 07:37] VITALS: BP 144/62; TEMP 97.7
[2022-09-20] MEDS: IPRATROPIUM-ALBUTEROL 3 ML NEB INHALATION SCH ×2 (09:31→12:20)
[2022-09-20] MEDS: ASCORBIC ACID 500 MG TAB PO SCH (11:17)
[2022-09-20] MEDS: ZINC SULFATE 220 MG CAP PO SCH (11:18)
[2022-09-20] MEDS: CHOLECALCIFEROL 125 MCG (5000 IU) TABLET PO SCH (11:18)
[2022-09-20] MEDS: AMOXIC-POT CLAV 875-125MG 1 EACH TAB PO SCH (11:18)
[2022-09-20] MEDS: RIVAROXABAN 2.5 MG TABLET PO SCH (11:18)
--- NOTE | 2022-09-20 11:21 | P.PN ---
Subjective Progress Note Date: 09/20/22 This is a pleasant 86-year-old female patient with a history of COPD and FEV1 value of 59% of predicted, gastroesophageal reflux disease, hyperlipidemia, hypertension, lifelong nonsmoker. She had been admitted back in July 2022 with CoVID pneumonia. She presented here to the emergency room yesterday after falling off the toilet and was unable to get up. EMS was called. She was breathing rapidly and was short of breath. Initially she didn't want to come to the hospital but came in after all. Did hurt her left hand. X-rays were negative for fractures. Computed tomography scan of the brain revealed no acute intracranial abnormality. Chest x-ray revealed evidence of COPD and borderline heart size. Possible focal opacity in the posterior bases and lateral view. Blood cultures reveal no growth. White count 9.7. Hemoglobin 11.3. Sodium 139. Potassium 5.3. BUN 26. Creatinine 1.0. Pro calcitonin 0.15. She is seen today in consultation on the regular medical floor. She is currently sitting up in a chair at the bedside. Maintaining O2 saturations up to 100% on 2 L/m per nasal cannula. She's been initiated on antibiotics in the form of Augmentin, Symbicort, DuoNeb inhalations, IV Solu-Medrol. Anticoagulated with Xarelto. The patient is seen today 09/20/2022 in follow-up on the regular medical floor. She is currently sitting up in a chair at the bedside. Awake and alert in no acute distress. She is currently maintaining good O2 saturations in the upper 90s on room air. Afebrile. Hemodynamically stable. Blood cultures reveal no growth. Blood sugar 158. She is continued on DuoNeb inhalations, Symbicort, IV Solu-Medrol. Anticoagulated with Xarelto. Antibiotics in the form of Augmentin. Remains on vitamin supplements. Objective - Vital Signs Vital signs: Vital Signs Temp 97.7 F 09/20/22 07:37 Pulse 80 09/20/22 09:44 Resp 18 09/20/22 07:37 BP 144/62 09/20/22 07:37 Pulse Ox 98 09/20/22 09:32 FiO2 Intake & Output 09/19/22 09/20/22 09/20/22 18:59 06:59 18:59 Other: # Voids 2 5 - Exam GENERAL EXAM: Alert, pleasant 86-year-old female, up in a chair at the bedside, on room air, comfortable in no apparent distress. HEAD: Normocephalic. EYES: Normal reaction of pupils, equal size. NOSE: Clear with pink turbinates. THROAT: No erythema or exudates. NECK: No masses, no JVD. CHEST: No chest wall deformity. LUNGS: Equal air entry with no crackles, wheeze, rhonchi or dullness. CVS: S1 and S2 normal with no audible murmur, regular rhythm. ABDOMEN: No hepatosplenomegaly, normal bowel sounds, no guarding or rigidity. SPINE: No scoliosis or deformity SKIN: No rashes CENTRAL NERVOUS SYSTEM: No focal deficits, tone is normal in all 4 extremities. EXTREMITIES: There is no peripheral edema. No clubbing, no cyanosis. Peripheral pulses are intact. - Labs CBC & Chem 7: 09/19/22 06:55 09/19/22 06:55 Labs: Abnormal Lab Results - Last 24 Hours (Table) 09/19/22 09/19/22 09/20/22 Range/Units 17:27 20:15 06:24 POC Glucose (mg/dL) 170 H 180 H 158 H (70-110) mg/dL Microbiology - Last 24 Hours (Table) 09/18/22 09:04 Blood Culture - Preliminary Blood No Growth after 48 hours 09/18/22 08:45 Blood Culture - Preliminary Blood No Growth after 48 hours Assessment and Plan Assessment: Acute exacerbation of chronic obstructive pulmonary disease Lifelong nonsmoker, may have had chemical exposure in her occupation to cause her COPD History of gastroesophageal reflux disease. History of hyperlipidemia. History of hypertension. Prior history of pneumonia. History of kidney stones. Plan: The patient was seen and evaluated Medications reviewed Continue DuoNeb inhalations, Symbicort Discontinue Solu-Medrol, initiate prednisone taper Complete a course of Augmentin Cleared for discharge from the pulmonary standpoint I have personally seen and examined the patient, performed the documentation and the assessment and plan as written. Number of minutes spent on the visit: 10.
[2022-09-20 11:34] LABS: Glucose,Whole Blood 165 mg/dL (70-110)
[2022-09-20 12:31] VITALS: PULSE 74
[2022-09-21] MEDS ORDERED: predniSONE 10 MG TAB PO SCH (09:00)
--- NOTE | 2022-09-28 10:17 | P.DS ---
Providers Date of admission: 09/18/22 10:52 Attending physician: Micha Dinero MD Consults: 09/18/22 13:22 Consult Physician Urgent Consulting Provider: Jamin Berg Consult Reason/Comments: possible copd Do you want consulting provider notified?: Yes Primary care physician: Janet Antunez Hospital Course: Diagnoses: Acute COPD exacerbation and possible pneumonia with chest x-ray reported as focal opacity posterior base Generalized weakness Patient fell at home without losing consciousness. Hyperlipidemia Hypertension History of GERD Hospital course: This is a pleasant 86 years old female with multiple medical problems as below. Patient is seen at bedside, tachypneic, she is fully awake and oriented, she knows she is in the hospital and she has insight into her illness. She states that she fell without losing consciousness and hurt her left hand and there is abrasion with no active bleeding in the base of the second finger. Patient main complaint is worsening dyspnea over the last few days. With no dyspnea. Also there is no pain or tenderness in her chest. Her detonator assembler is Dr. Freitas. Patient was admitted with acute COPD exacerbation and pneumonia and she was treated with IV Solu-Medrol and Augmentin. Patient evaluated by detonator assembler. Patient showed interval improvement and on the day of discharge her dyspnea significantly improved and she denies chest pain, no other new complaint and patient was cleared for discharge by pulmonary service. Problems and management plan were discussed with the patient and he verbalized understanding and acceptance Patient was found stable and can be discharged home in guarded prognosis however he needs follow-up as an outpatient. Patient was instructed to follow up with PCP within one week and patient agrees Patient was instructed Patient was instructed to follow up with her detonator assembler Dr. Freitas in one to two week and she agrees to call and make appointment Physical exam Gen: patient is a AAOx3, no distress CVS: S1-S2, RRR, no murmur Lungs: B/L CTA, no wheezing Abdomen: soft, no distention, no tenderness, positive bowel sounds Extremity: no leg edema or induration Time spent more than 35 minutes Plan - Discharge Summary Discharge Rx Participant: No New Discharge Prescriptions: New Famotidine [Pepcid] 20 mg PO HS #30 tab predniSONE 10 mg PO DIRECTED #20 tab Amoxic-Pot Clav 875-125Mg [Augmentin 875-125] 1 each PO Q12HR 7 Days #14 tab Continue Cholecalciferol [Vitamin D3 (125 Mcg = 5000 Iu)] 125 mcg PO DAILY tab Budesonide/Formoterol Fumarate [Symbicort 160-4.5 Mcg Inhaler] 2 puff INHALATION RT-DAILY PRN PRN Reason: Shortness Of Breath Ipratropium-Albuterol Nebulize [Duoneb 0.5 mg-3 mg/3 ml Soln] 3 ml INHALATION RT-DAILY predniSONE 5 mg PO Q48H Rivaroxaban [Xarelto] 2.5 mg PO DAILY predniSONE 10 mg PO Q48H Zinc Sulfate [Orazinc] 220 mg PO DAILY cap Albuterol Inhaler [Ventolin Hfa Inhaler] 2 puff INHALATION RT-QID PRN #1 inch PRN Reason: Shortness Of Breath Or Wheezing Ascorbic Acid [Vitamin C] 1,000 mg PO DAILY tab Acetaminophen [Tylenol Extra Strength] 500 mg PO DAILY Discharge Medication List predniSONE 10 mg PO Q48H 07/20/22 [History] Albuterol Inhaler [Ventolin Hfa Inhaler] 2 puff INHALATION RT-QID PRN #1 inch 07/23/22 [Rx] Ascorbic Acid [Vitamin C] 1,000 mg PO DAILY tab 07/23/22 [Rx] Cholecalciferol [Vitamin D3 (125 Mcg = 5000 Iu)] 125 mcg PO DAILY tab 07/23/22 [Rx] Zinc Sulfate [Orazinc] 220 mg PO DAILY cap 07/23/22 [Rx] Acetaminophen [Tylenol Extra Strength] 500 mg PO DAILY 09/18/22 [History] Budesonide/Formoterol Fumarate [Symbicort 160-4.5 Mcg Inhaler] 2 puff INHALATION RT-DAILY PRN 09/18/22 [History] Ipratropium-Albuterol Nebulize [Duoneb 0.5 mg-3 mg/3 ml Soln] 3 ml INHALATION RT-DAILY 09/18/22 [History] Rivaroxaban [Xarelto] 2.5 mg PO DAILY 09/18/22 [History] predniSONE 5 mg PO Q48H 09/18/22 [History] Amoxic-Pot Clav 875-125Mg [Augmentin 875-125] 1 each PO Q12HR 7 Days #14 tab 09/20/22 [Rx] Famotidine [Pepcid] 20 mg PO HS #30 tab 09/20/22 [Rx] predniSONE 10 mg PO DIRECTED #20 tab 09/20/22 [Rx] Follow up Appointment(s)/Referral(s): Janet Antunez MD [Primary Care Provider] - 10/09/22 2:45 pm [facility],Equipment [NON-STAFF] - As Needed (nebulizer) Chaitanya Lainez MD [REFERRING] - 1 Week [facility], [REFERRING] - As Needed Patient Instructions/Handouts: Asthma (DC) Activity/Diet/Wound Care/Special Instructions: Heart healthy low carbohydrate diet 1600 kcal per day Activity is restricted until you see your doctor if he does have primary care doctor, contact your healthcare provider to find by primary care doctor Discharge Disposition: HOME WITH HOME HEALTH SERVICES
== END 2022-09-20 15:10 | disposition home health service (06) | DRG 190 ==
LOC: EC 08:45 → 4SSUR 10:52
PROVIDERS: ADMIT Internal Medicine; ATTEND Internal Medicine
PROC: 0HQGXZZ Repair Left Hand Skin, External Approach (ICD-10-PCS; principal; 2022-09-18)
DX: J44.0 Chronic obstructive pulmonary disease with (acute) lower respiratory infection (principal); J18.9 Pneumonia, unspecified organism; J45.901 Unspecified asthma with (acute) exacerbation; J44.1 Chronic obstructive pulmonary disease with (acute) exacerbation; S61.217A Laceration without foreign body of left little finger without damage to nail, initial encounter; S61.215A Laceration without foreign body of left ring finger without damage to nail, initial encounter; E78.5 Hyperlipidemia, unspecified; I10 Essential (primary) hypertension; K21.9 Gastro-esophageal reflux disease without esophagitis; R10.9 Unspecified abdominal pain; M85.80 Other specified disorders of bone density and structure, unspecified site; Z79.01 Long term (current) use of anticoagulants; Z79.51 Long term (current) use of inhaled steroids; Z79.899 Other long term (current) drug therapy; Z91.81 History of falling; Z87.01 Personal history of pneumonia (recurrent); Z87.442 Personal history of urinary calculi; W18.11XA Fall from or off toilet without subsequent striking against object, initial encounter; Y92.002 Bathroom of unspecified non-institutional (private) residence as the place of occurrence of the external cause; Z87.891 Personal history of nicotine dependence; Z86.16 Personal history of COVID-19
CPT/HCPCS: 12001; 36415; 70450; 71046; 80048; 80053; 83036; 83605; 83735; 84145; 84484; 85025; 85610; 85730; 87040; 90471; 90715; 93005; 94640; 94760; 96374; 96376; 99291

== ENCOUNTER 2023-01-07 02:16 | Inpatient (IN) | payer MEDICARE ==
[2023-01-07] MEDS ORDERED: MAGNESIUM SULFATE-D5W PMX 1 GM in DEXTROSE/WATER 1 100ML.BAG IVPB STA (02:30)
[2023-01-07] MEDS ORDERED: IPRATROPIUM-ALBUTEROL 3 ML NEB INHALATION STA (02:30)
[2023-01-07] MEDS ORDERED: methylPREDNISolone SOD SUCCI 125 MG/2 ML VIAL IV STA (02:30)
[2023-01-07] MEDS ORDERED: SODIUM CHLORIDE 0.9% 500 ML 500 ML IV STA (02:30)
[2023-01-07 03:03] LABS: VBG PH 7.32 (7.31-7.41)
[2023-01-07] MEDS ORDERED: KETOROLAC 15 MG/ML 1 ML VIAL IVP STA (03:05)
--- NOTE | 2023-01-07 03:06 | XR ---
EXAMINATION TYPE: XR chest 1V portable DATE OF EXAM: 01/07/2023 COMPARISON: 09/18/2022 HISTORY: Difficulty breathing TECHNIQUE: Single view FINDINGS: There is no heart failure no confluent pneumonic infiltrate there is slight blunting right costophrenic angle. There are chest leads. Thoracic aorta is atheromatous. The bony thorax is intact IMPRESSION: No active cardiopulmonary disease. There is clearing of some increased density left lower lobe compared to old exams
[2023-01-07 03:09] LABS: Albumin 3.6 g/dL (3.5-5.0); Calcium 8.7 mg/dL (8.4-10.2); Magnesium 2.1 mg/dL (1.6-2.3); Total Bilirubin 1.1 mg/dL (0.2-1.3); Total Protein 5.8 g/dL (6.3-8.2)
--- NOTE | 2023-01-07 03:10 | XR ---
EXAMINATION TYPE: XR thoracic spine 1V DATE OF EXAM: 01/07/2023 COMPARISON: NONE HISTORY: Short of breath TECHNIQUE: Single view FINDINGS: Single limited exam of the thoracic spine shows normal alignment of the vertebra. No eviden ce of paraspinal mass. IMPRESSION: Negative limited thoracic spine exam. This exam does not evaluate for fracture.
[2023-01-07 03:11] LABS: Potassium 4.9 mmol/L (3.5-5.1)
--- NOTE | 2023-01-07 03:11 | ED ---
General Adult HPI - General Chief complaint: Shortness of Breath Stated complaint: SOB Time Seen by Provider: 01/07/23 02:20 Source: patient, EMS, RN notes reviewed, old records reviewed Mode of arrival: EMS Limitations: no limitations - History of Present Illness Initial comments: Patient is an 87-year-old female with past medical history remarkable for asthma, COPD, hypertension, chronic back pain who presents emergency Department complaining of her chronic back pain as well as her increased work of breathing. States her work of breathing has been ongoing for the last few days and worse tonight. Does have a history of asthma. His been attempting to use her breathing treatments at home, but has been unsuccessful. Called EMS. Presents for further evaluation at this time. Denies any chest pain, abdominal pain, nausea, vomiting. Denies any fevers. Denies any sick contacts. She is not on oxygen at home normally. Presents for further evaluation. Patient's nephew Roscoe is at bedside and is an EMT who helps with history. Unknown if patient is taking medications including breathing treatments as prescribed. - Related Data Home Medications Medication Instructions Recorded Confirmed predniSONE 10 mg PO DAILY 07/20/22 01/07/23 Budesonide/Formoterol Fumarate 2 puff INHALATION RT-BID 09/18/22 01/07/23 [Symbicort 160-4.5 Mcg Inhaler] Ipratropium-Albuterol Nebulize 3 ml INHALATION RT-QID 09/18/22 01/07/23 [Duoneb 0.5 mg-3 mg/3 ml Soln] Rivaroxaban [Xarelto] 2.5 mg PO DAILY 09/18/22 01/07/23 Acetaminophen [Tylenol 8 Hour] 650 mg PO DAILY 01/07/23 01/07/23 Allergies Allergy/AdvReac Type Severity Reaction Status Date / Time No Known Allergies Allergy Verified 01/07/23 08:43 Review of Systems ROS Statement: Those systems with pertinent positive or pertinent negative responses have been documented in the HPI. Review of Systems: CONST: Denies fever EYES: Denies blurry vision ENT: Denies nasal congestion C/V: Denies Chest pain RESP: Endorses shortness of breath GI: Denies abdominal pain : Denies dysuria SKIN: Denies rash. MSK: Endorses chronic back pain NEURO: Denies headache ROS Other: All systems not noted in ROS Statement are negative. Past Medical History Past Medical History: Asthma, COPD, GERD/Reflux, Hyperlipidemia, Hypertension, Pneumonia Additional Past Medical History / Comment(s): states pneumonia May 2018 and had 6 falls at that time (states legs just gave out), pt currently denies nay falls in the last 6 months. SOB with activity, Hx of kidney stone, states weight loss due to stomach pain- which has improved. History of Any Multi-Drug Resistant Organisms: None Reported Past Surgical History: Hysterectomy Past Anesthesia/Blood Transfusion Reactions: No Reported Reaction Past Psychological History: No Psychological Hx Reported Smoking Status: Never smoker - Past Family History Mother Family Medical History: Unable to Obtain Additional Family Medical History / Comment(s): Due to mental status General Exam - General Exam Comments Initial Comments: General: Appears in mild to moderate respiratory distress. Increased work of breathing. HEAD: Normal with no signs of head trauma. EYES: PERRLA, EOMI, conjunctiva normal, no discharge. ENT: Hearing grossly intact, normal oropharynx. RESPIRATORY: Bilateral end expiratory wheezing that is significant. Increased work of breathing. Saturating low 90%s on room air. C/V: Regular rate and rhythm. S1 and S2 auscultated, peripheral pulses 2+ and intact throughout ABD: Abd is soft, nontender, nondistended EXT: Normal range of motion, no obvious deformity. Midline thoracic spine tenderness to palpation, somewhat chronic for the patient. No obvious deformities or step-offs appreciated. SKIN: No rashes or lesions observed on exposed skin. NEURO: Alert and oriented 4. Limitations: no limitations Course Vital Signs 01/07/23 01/07/23 01/07/23 02:18 02:20 02:42 Temperature 97 F L Pulse Rate 95 87 Pulse Rate [ Database Analyst ] Respiratory 24 Rate Blood Pressure 119/87 Blood Pressure [Left Arm] O2 Sat by Pulse 97 Oximetry Fraction of 28 Inspired Oxygen (FIO2) 01/07/23 01/07/23 01/07/23 02:55 03:20 05:46 Temperature Pulse Rate 88 79 Pulse Rate [ Database Analyst ] Respiratory 14 Rate Blood Pressure 107/73 Blood Pressure [Left Arm] O2 Sat by Pulse 98 Oximetry Fraction of 28 Inspired Oxygen (FIO2) 01/07/23 01/07/23 01/07/23 06:19 06:20 06:30 Temperature Pulse Rate 121 H 123 H 123 H Pulse Rate [ Database Analyst ] Respiratory 19 Rate Blood Pressure 94/71 118/85 Blood Pressure [Left Arm] O2 Sat by Pulse 95 95 98 Oximetry Fraction of 100 Inspired Oxygen (FIO2) 01/07/23 01/07/23 01/07/23 06:40 06:43 06:54 Temperature Pulse Rate 137 H 123 H Pulse Rate [ Database Analyst ] Respiratory 13 16 Rate Blood Pressure 109/25 96/66 Blood Pressure [Left Arm] O2 Sat by Pulse 90 L 98 Oximetry Fraction of 100 Inspired Oxygen (FIO2) 01/07/23 01/07/23 01/07/23 07:04 08:35 08:59 Temperature Pulse Rate 117 H 115 H Pulse Rate [ Database Analyst ] Respiratory 16 Rate Blood Pressure 119/94 Blood Pressure [Left Arm] O2 Sat by Pulse 99 Oximetry Fraction of 50 Inspired Oxygen (FIO2) 01/07/23 01/07/23 09:00 09:01 Temperature Pulse Rate 124 H Pulse Rate [ 115 H Database Analyst ] Respiratory 16 22 Rate Blood Pressure 94/57 Blood Pressure 116/94 [Left Arm] O2 Sat by Pulse 98 99 Oximetry Fraction of 50 Inspired Oxygen (FIO2) Procedures - Intubation Sedative: Etomidate Mg Given: 20 Paralytic: Rocuronium Mg Given: 50 Laryngoscope: other (glidescope) Size: 4 ET Tube Size: 7.5 Tube Secured Depth (cm): 26 Tube Secured Location: lips Tube Placement Confirmation: visualized tube passing through cords, equal breath sounds bilaterally, no breath sounds over epigastrium, confirmation by capnometry Patient Tolerated Procedure: well Intubation Complications: none Medical Decision Making - Medical Decision Making Was pt. sent in by a medical professional or institution (, PA, [facility], urgent care, hospital, or fci...) When possible be specific @ -No Did you speak to anyone other than the patient for history (EMS, parent, family, police, friend...)? What history was obtained from this source @ -Yes, patient's nephew Roscoe who is an EMT who helps provide most the patient's history. Did you review nursing and triage notes (agree or disagree)? Why? @ -I reviewed and agree with nursing and triage notes, except patient endorses multiple days of worsening breathing. Has chronic back pain which she is experiencing currently. Were old charts reviewed (outside hosp., previous admission, EMS record, old EKG, old radiological studies, urgent care reports/EKG's, fci records)? Report findings @ -Old charts and EKG reviewed from September 2023 Differential Diagnosis (chest pain, altered mental status, abdominal pain women, abdominal pain men, vaginal bleeding, weakness, fever, dyspnea, syncope, headache, dizziness, GI bleed, back pain, seizure, CVA, palpatations, mental hea lth, musculoskeletal)? @ -Differential Dyspnea: Coronary syndrome, arrhythmia, tamponade, asthma, COPD, pulmonary embolism, pneumonia, pneumothorax, pulmonary effusion, anaphylaxis, diabetic ketoacidosis, flailed chest, pulmonary contusion, diaphragmatic rupture, anemia, neuromu scular, this is not meant to be an all-inclusive list. EKG interpreted by me (3pts min.). @ -As above X-rays interpreted by me (1pt min.). @ -Chest x-ray reveals no obvious infiltrate or pneumonia. Otherwise no acute cardiopulmonary process. Thoracic spine x-ray reveals no acute injury. Chronic changes. CT interpreted by me (1pt min.). @ -CT brain revealed no obvious acute intracranial process or hemorrhage. CT Chest/abd/pelvis ultimately revealed the dissecting/leaking aortic aneurysm with pericardial effusion. U/S interpreted by me (1pt. min.). @ -None done What testing was considered but not performed or refused? (CT, X-rays, U/S, labs)? Why? @ -None What meds were considered but not given or refused? Why? @ -None Did you discuss the management of the patient with other professionals (professionals i.e. , PA, [facility], lab, RT, psych nurse, social studies department chair, agile business analyst, teacher, environmental health officer, gearcase assembler)? Give summary @ -GER Draper who accepted the admission, he was updated that the patient was admitted to the ICU. I spoke with Dr. Berg of the ICU after the patient was intubated and he was in agreement with plan and accepted the patient to his service. Discussed final results of imaging with Dr. Miller after patient was admitted. Was smoking cessation discussed for >3mins.? @ -No Was critical care preformed (if so, how long)? @ -Yes, 76 min Were there social determinants of health that impacted care today? How? (Homelessness, low income, unemployed, alcoholism, drug addiction, transportation, low edu. Level, literacy, decrease access to med. care, fci, rehab)? @ -No Was there de-escalation of care discussed even if they declined (Discuss DNR or withdrawal of care, Hospice)? DNR status @ -Did discuss CODE STATUS with the patient's family who did present at bedside and they stated that patient as well as her always wanted to be full code. Patient will remain full code at this time. Family including Nephew Rolf, his Leatha, and nephew Roscoe the EMT What co-morbidities impacted this encounter? (DM, HTN, Smoking, COPD, CAD, Cancer, CVA, ARF, Chemo, Hep., AIDS, mental health diagnosis, sleep apnea, morbid obesity)? @ -asthma Was patient admitted / discharged? Hospital course, mention meds given and route, prescriptions, significant lab abnormalities, going to OR and other p ertinent info. @ -Based on the patient's presentation and physical exam, I'm concerned for increased work of breathing likely secondary to asthma/COPD exacerbation as well as reproducable chronic midline thoracic back pain that is atraumatic. Has been seen previously for similar symptoms in the past. She has significant increased work of breathing at this time and does have tight, wheezy lung sounds consistent with her asthma. Patient will be placed on BiPAP due to her inc reased work of breathing. We will wean off as tolerated. She'll be administered IV Solu-Medrol, magnesium, as well as duoneb breathing treatments. She will receive a small fluid bolus as well as a dose of IV Toradol. Patient was in agreement this plan. We will obtain screening EKG as well as infectious labs. Patient was in agreement with this plan. Patient's labs returned remarkable for an elevated lactic acid which is likely secondary to insensible losses from increased work of breathing at 2.6. PCO2 on the VBG is elevated in sending for hypercarbia. Covid, flu, RSV negative. Chest x-ray shows no obvious infiltrate. On reevaluation come patient's work of breathing and breathing overall is improved. Wheezing is improved. Back pain is better controlled. We will keep her on BiPAP at this time. Wheezing is improved at this time as well. She was in agreement this plan. We'll continue steroid therapy as well as DuoNeb's. I updated the patient's family Rolf and Roscoe as well, who separately presented at bedside. Pulmonology was consulted. I spoke with the admitting team [facility] GER Draper who admits for Dr. Tulio forrest, who accepted the admission. Patient origianally admitted at 0425. After the patient was admitted, there was an issue with obtaining proper blood work to obtain a CBC, as the tube kept clotting off per lab. Therefore I personally placed a butterfly needle to obtain blood work the patient's right AC. Immediately after obtaining blood and removal of the needle, patient became unresponsive. She was talking to us throughout the procedure, but stopped abruptly. Vital signs remained stable. She remained on BiPAP. Bllood Pressure did temporarily dropped to 70s over 40s. Pulses were greater than 100. Patient was placed in Trendelenburg and immediately moved to trauma bay 2, with suspicion of vagal response to the blood draw. Vital signs did recover in terms of her blood pressure. She was tachycardic but otherwise was maintaining well saturations while still on bipap. However, patient's mental status was still altered. She remained unresponsive. GCS remained approximately 6-7. After patient's mental status did not improve following 5 minutes after the episode while we prepared for intubation, despite normalization of vital signs, as well as her being already in respiratory distress and asthma on BiPAP, the decision was made to was intubate the patient for airway protection. Intubation was completed with glidescope. Etomidate and rocuronium was used for RSI. Patient tolerated the procedure well. She was placed on a fentanyl drip for sedation as post RSI blood pressures were low. Patient received 2 L IV fluid boluses during intubation. OG tube was placed. Chest x-ray shows adequate placement of the ET tube as well as OG tube. We'll obtain CT brain due to the episode of unresponsiveness as well as CTA to rule out PE and CT of the abdomen and pelvis. My suspicion is low at this time, but cannot definitively rule out PE due to her history and unknown compliance with medications as well as the sudden syncopal/unresponsive episode. Patient will require ICU admission. Vital signs remain stable at this time. Patient's family was updated, and they will return to the emergency department for updates. I did update the admitting team, [facility] as well as speaking with Dr. Morena JARAMILLO who accepted the patient to the ICU following CT imaging. Postintubation ABG as well as CT imaging will be obtained at this time. EKG following the incident is within acceptable limits. Blood glucose was also within acceptable limits. Urine was obtained after Farrar was placed, and shows a UTI. Patient was started on Rocephin. I updated the family, Leatha Bansal, and nephew Roscoe the EMT. Code status was confirmed. Prognosis is guarded at this time. CT brain returned unremarkable, no obvious process. remaining CT imaging p ending, waiting to cross over and be interpreted. 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 I paged ICU to immediately convey the imaging results. Imaging results were discussed with the ICU attending Dr. Miller who assumed care of the patient. Prognosis is poor. Undiagnosed new problem with uncertain prognosis? @ -yes Drug Therapy requiring intensive monitoring for toxicity (Heparin, Nitro, Insulin, Cardizem)? @ -No Were any procedures done? @ -intubation Diagnosis/symptom? @ -Leaking/dissecting ascending thoracic aortic aneurysm causing pericardial effusion Acute, or Chronic, or Acute on Chronic? @ -Acute Uncomplicated (without systemic symptoms) or Complicated (systemic symptoms)? @ -complicated Side effects of treatment? @ -none Exacerbation, Progression, or Severe Exacerbation] @ -no Poses a threat to life or bodily function? @ -yes Diagnosis/symptom? @ -Asthma exacerbation, acute hypoxia/hypercarbia respiratory failure Acute, or Chronic, or Acute on Chronic? @ -Acute Uncomplicated (without systemic symptoms) or Complicated (systemic symptoms)? @ -Complicated Side effects of treatment? @ -No Exacerbation, Progression, or Severe Exacerbation? @ -Severe exacerbation Poses a threat to life or bodily function? How? (Chest pain, [place], [place], pneumonia, PE, COPD, DKA, ARF, appy, cholecystitis, CVA, Diverticulitis, Homicidal, Suicidal, threat to staff... and all critical care pts) @ -Yes. Diagnosis/symptom? @ -Unresponsive, initially unknown etiology but likely related to aortic aneurysm leak/dissection. Intubation for airway protection Acute, or Chronic, or Acute on Chronic? @ -Acute Uncomplicated (without systemic symptoms) or Complicated (systemic symptoms)? @ -Complicated Side effects of treatment? @ -none Exacerbation, Progression, or Severe Exacerbation] @ -no Poses a threat to life or bodily function? @ -Yes Diagnosis/symptom? @ -UTI Acute, or Chronic, or Acute on Chronic? @ -Acute Uncomplicated (without systemic symptoms) or Complicated (systemic symptoms)? @ -Acute Side effects of treatment? @ -none Exacerbation, Progression, or Severe Exacerbation] @ -no Poses a threat to life or bodily function? @ -no Diagnosis/symptom? @ -Dehydration secondary to insensible losses Acute, or Chronic, or Acute on Chronic? @ -Acute Uncomplicated (without systemic symptoms) or Complicated (systemic symptoms)? @ -Uncomplicated Side effects of treatment? @ -none Exacerbation, Progression, or Severe Exacerbation] @ -no Poses a threat to life or bodily function? @ -no Diagnosis/symptom? @ -Back pain Acute, or Chronic, or Acute on Chronic? @ -Chronic Uncomplicated (without systemic symptoms) or Complicated (systemic symptoms)? @ -Uncomplicated Side effects of treatment? @ -none Exacerbation, Progression, or Severe Exacerbation] @ -no Poses a threat to life or bodily function? @ -no - Lab Data Result diagrams: 01/07/23 06:10 01/07/23 02:32 Lab Results 01/07/23 01/07/23 01/07/23 Range/Units 02:32 02:32 02:37 VBG pH (7.31-7.41) VBG pCO2 (37-51) mmHg VBG HCO3 (24-28) mmol/L Sodium 138 (137-145) mmol/L Potassium 4.9 (3.5-5.1) mmol/L Chloride 106 (98-107) mmol/L Carbon Dioxide 27 (22-30) mmol/L Anion Gap 5 mmol/L BUN 29 H (7-17) mg/dL Creatinine 0.95 (0.52-1.04) mg/dL Est GFR (CKD-EPI)AfAm 64 (>60 ml/min/1.73 sqM) Est GFR (CKD-EPI)NonAf 55 (>60 ml/min/1.73 sqM) Glucose 146 H (74-99) mg/dL Lactic Ac Sepsis Rflx Plasma Lactic Acid Jhonathan 2.6 H* (0.7-2.0) mmol/L Calcium 8.7 (8.4-10.2) mg/dL Magnesium 2.1 (1.6-2.3) mg/dL Total Bilirubin 1.1 (0.2-1.3) mg/dL AST 26 (14-36) U/L ALT 18 (4-34) U/L Alkaline Phosphatase 73 (38-126) U/L Total Protein 5.8 L (6.3-8.2) g/dL Albumin 3.6 (3.5-5.0) g/dL Influenza Type A (PCR) Not Detected (Not Detectd) Influenza Type B (PCR) Not Detected (Not Detectd) RSV (PCR) Not Detected (Not Detectd) SARS-CoV-2 (PCR) Not Detected (Not Detectd) 01/07/23 01/07/23 Range/Units 02:37 03:12 VBG pH 7.32 (7.31-7.41) VBG pCO2 53 H (37-51) mmHg VBG HCO3 27 (24-28) mmol/L Sodium (137-145) mmol/L Potassium (3.5-5.1) mmol/L Chloride (98-107) mmol/L Carbon Dioxide (22-30) mmol/L Anion Gap mmol/L BUN (7-17) mg/dL Creatinine (0.52-1.04) mg/dL Est GFR (CKD-EPI)AfAm (>60 ml/min/1.73 sqM) Est GFR (CKD-EPI)NonAf (>60 ml/min/1.73 sqM) Glucose (74-99) mg/dL Lactic Ac Sepsis Rflx Y Plasma Lactic Acid Jhonathan (0.7-2.0) mmol/L Calcium (8.4-10.2) mg/dL Magnesium (1.6-2.3) mg/dL Total Bilirubin (0.2-1.3) mg/dL AST (14-36) U/L ALT (4-34) U/L Alkaline Phosphatase (38-126) U/L Total Protein (6.3-8.2) g/dL Albumin (3.5-5.0) g/dL Influenza Type A (PCR) (Not Detectd) Influenza Type B (PCR) (Not Detectd) RSV (PCR) (Not Detectd) SARS-CoV-2 (PCR) (Not Detectd) - EKG Data -: EKG Interpreted by Me EKG Comments: 12-lead Electrocardiogram Interpretation Note EKG was reviewed and interpreted by myself. 12-lead ECG performed at 0223 is interpreted by me as revealing normal sinus rhythm at a rate of 95 beats per minute. Left axis deviation. ND interval is 193 ms, QRS duration 72 ms, QTc is 394 ms.. There were no ST or T wave abnormalities to suggest myocardial ischemia or injury. R wave progression across the precordium was satisfactory. By my interpretation this EKG is non-diagnostic for acute ischemia. When compared with EKG from September 2022, no significant change. 12-lead Electrocardiogram Interpretation Note EKG was reviewed and interpreted by myself. 12-lead ECG performed at 0702 is interpreted by me as revealing sinus tachycardia with first-degree AV block at a rate of 118 beats per minute. Left axis deviation. ND interval is 239 ms, QRS duration is 80 ms, QTc is 397 ms.. There were no ST or T wave abnormalities to suggest myocardial ischemia or injury. R wave progression across the precordium was satisfactory. By my interpretation this EKG is non-diagnostic for acute ischemia. Critical Care Time Critical Care Time: Yes Total Critical Care Time: 76 Critical Care Time: Upon my evaluation, this patient had a high probability of imminent or life- threatening deterioration due to acute hypoxic, hypercarbic respiratory failure from asthma and unresponsive episode resulting in intubation and ICU admission, which required my direct attention, intervention, and personal management. I have personally provided 76 minutes of critical care time exclusive of time spent on separately billable procedures. Time includes review of laboratory data, radiology results, discussion with consultants, and monitoring for potential decompensation. Interventions were performed as documented in my note. Disposition Clinical Impression: Asthma exacerbation, Acute respiratory failure with hypoxia and hypercarbia, Dehydration, Back pain, Intubation of airway performed without difficulty, Unresponsive episode, Thoracic ascending aortic aneurysm, Pericardial effusion, acute, Ascending aortic dissection Disposition: ADMITTED IP TO THIS HOSP Condition: Critical Time of Disposition: 07:10
[2023-01-07] MEDS ORDERED: SODIUM CHLORIDE 0.9% 1,000 ML IV STA (03:22)
[2023-01-07] MEDS ORDERED: LIDOCAINE 5% PATCH TOPICAL STA (03:50)
[2023-01-07] MEDS: IPRATROPIUM-ALBUTEROL 3 ML NEB INHALATION SCH ×5 (03:51→19:30)
[2023-01-07] MEDS ORDERED: NALOXONE 0.4 MG/ML 1 ML VIAL IV PRN (04:25)
[2023-01-07] MEDS ORDERED: ACETAMINOPHEN TAB 325 MG TAB PO PRN (04:25)
[2023-01-07 05:33] LABS: Prothrombin Time 10.2 sec (9.0-12.0)
[2023-01-07 05:42] LABS: Partial Thromboplastin Time 17.8 sec (22.0-30.0)
[2023-01-07 06:17] LABS: Basophils % (A) 0 %; Eosinophils # (A) 0.1 k/uL (0-0.7); Eosinophils % (A) 1 %; HCT 37.4 % (34.0-46.0); HGB 12.6 gm/dL (11.4-16.0); Lymphocytes # (A) 0.3 k/uL (1.0-4.8); Lymphocytes % (A) 2 %; MCH 30.6 pg (25.0-35.0); MCHC 33.8 g/dL (31.0-37.0); MCV 90.6 fL (80.0-100.0); Mean Platelet Volume 7.4; Monocytes # (A) 0.3 k/uL (0-1.0); Monocytes % (A) 2 %; Neutrophils # (A) 14.4 k/uL (1.3-7.7); Neutrophils % (A) 95 %; Platelet Count 253 k/uL (150-450); RBC 4.13 m/uL (3.80-5.40); RDW 15.3 % (11.5-15.5); WBC 15.1 k/uL (3.8-10.6)
[2023-01-07 06:20] LABS: Glucose,Whole Blood 202 mg/dL (70-110)
[2023-01-07] MEDS ORDERED: ETOMIDATE 2 MG/ML 10 ML VIAL IVP STA (06:27)
[2023-01-07] MEDS ORDERED: ROCURONIUM 10 MG/ML (5 ML VIAL) IV STA (06:30)
[2023-01-07 06:38] LABS: Appearance,Urine Clear (Clear); Bilirubin,Urine Negative (Negative); Blood,Urine Negative (Negative); Color,Urine Yellow; Glucose,Urine (UA) Negative (Negative); Hyaline Casts,Urine 3 /lpf (0-2); Ketones,Urine Negative (Negative); Leukocyte Esterase,Urine Moderate (Negative); Nitrite,Urine Negative (Negative); Protein,Urine Trace (Negative); RBC,Urine 3 /hpf (0-5); Specific Gravity,Urine 1.026 (1.001-1.035); Squamous Epithelial Cell,Urine <1 /hpf (0-4); WBC,Urine 10 /hpf (0-5)
--- NOTE | 2023-01-07 06:38 | XR ---
EXAM: XR Chest, 1 View CLINICAL HISTORY: ITS.REASON XR Reason: unresponsive TECHNIQUE: Frontal view of the chest. COMPARISON: 01/07/2023 FINDINGS: Lungs: Slightly heterogeneous parenchyma. No acute pulmonary consolidation. Pleural space: Unremarkable. No pleural effusion or pneumothorax. Heart: Unremarkable. No cardiomegaly. Mediastinum: Prominent cardial mediastinal silhouette. Bones/joints: Unremarkable. IMPRESSION: No acute findings in the chest.
[2023-01-07] MEDS ORDERED: fentaNYL (PF). 1,000 MCG in SODIUM CHLORIDE 0.9% 80 ML IV SCH (06:45)
--- NOTE | 2023-01-07 06:52 | XR ---
EXAM: XR Chest, 1 View CLINICAL HISTORY: ITS.REASON XR Reason: TUBE PLACEMENT TECHNIQUE: Frontal view of the chest. COMPARISON: 01/07/2023 FINDINGS: Lungs: Unremarkable. No consolidation. Right lateral thorax excluded. Pleural space: Unremarkable. No pneumothorax. Heart: Unremarkable. No cardiomegaly. Mediastinum: Unremarkable. Bones/joints: Unremarkable. Tubes, lines and devices: Endotracheal tube tip projects over mid- lower thoracic trachea. Enteric catheter tip projects over the stomach. IMPRESSION: No acute findings in the chest. Lines and tubes as above.
[2023-01-07 07:35] LABS: ABG Base Excess -13.5 mmol/L; ABG HCO3 15 mmol/L (21-25); ABG PCO2 42 mmHg (35-45); ABG PO2 >400 mmHg (83-108); ABG TCO2 16 mmol/L (19-24); Allen Test Performed? Yes
[2023-01-07 07:42] LABS: ABG PH 7.16 (7.35-7.45)
[2023-01-07] MEDS ORDERED: SYMBICORT 160-4.5 MCG INHALER INHALATION SCH (08:00)
[2023-01-07] MEDS ORDERED: IPRATROPIUM-ALBUTEROL 3 ML NEB INHALATION SCH (08:00)
--- NOTE | 2023-01-07 08:22 | CT ---
EXAMINATION TYPE: CT brain wo con DATE OF EXAM: 01/07/2023 COMPARISON: 09/18/2022 HISTORY: AMS CT DLP: 1158.[address] of the brain was performed. The ventricles, basal cisterns and sulci overlying the cerebral convexities demonstrate mild enlargem ent. There is no evidence for intracranial hemorrhage or sulcal effacement. There is decreased attenuation about the periventricular white matter and deep white matter of both c erebral hemispheres, compatible with chronic small vessel ischemia. Differential diagnosis does inclu de demyelination. No mass effects are seen.No midline shift. Osseous calvarium is intact. If symptoms persist consider MRI. IMPRESSION: 1. Age related atrophic and chronic small vessel ischemic change without acute intracranial process s een at this time.
--- NOTE | 2023-01-07 08:53 | CT ---
EXAMINATION TYPE: CT chest angio for PE DATE OF EXAM: 01/07/2023 COMPARISON: HISTORY: AMS, Chest pain, PE, SOB CT DLP: 1099.3 mGycm CONTRAST: CT chest with contrast and 3D reconstruction with MIP imaging is performed without and with IV Contra st, patient injected with 100 ml mL of Isovue 370. Contrast-enhanced CT of the chest was performed through the course of the pulmonary arteries with milton g and mediastinal window settings submitted. 3D reconstruction with MIP imaging was also performed. PULMONARY ARTERIES: The pulmonary arteries and their major tributaries are patent. I do not see carl dence for sizable filling defect to suggest pulmonary embolic process. LUNGS: The lungs are clear and free of infiltrate. Scattered basilar atelectasis. Small left-sided pl eural effusion. No pulmonary nodule or mass is detected. MEDIASTINUM: There is aneurysm of the ascending thoracic aorta increasing relative to the prior study at 4.5 cm AP dimension versus 4.3 cm previously. There is poor opacification of the ascending thorac ic aorta given PE protocol however Portions of the wall appear to be ill-defined. There is also hyper dense pericardial effusion measuring up to 2.1 cm in thickness. I cannot exclude leaking aneurysm wit h hemorrhagic pericardial effusion. Endotracheal tube is in place. Massive enlargement of the left th yroid lobe. NG tube is seen coursing into the stomach. No evidence for mediastinal mass. No mediast inal lymph nodes greater than 1cm. HILAR STRUCTURES: No evidence for mass. No hilar lymph nodes greater than 1 cm. UPPER ABDOMEN: No significant abnormality is seen. IMPRESSION: 1. No evidence for pulmonary embolism. 2. There is aneurysmal dilatation of a poorly opacified ascending thoracic aorta given PE protocol ho wever portions of the wall appear to be ill-defined. In addition there is hyperdense pericardial effu cuca suggesting hemorrhagic content. Leaking aneurysm is not excluded. Vascular consult recommended. A [place] critical message alert has been initiated for Josh Rodríguez MD via the [employer] System on 01/07/2023 8:50 AM. This message alert has been sent to Josh Rodríguez MD via the preferences provided by the clinician for the receipt of Radiology Critical Findings. Message ID [id number].
--- NOTE | 2023-01-07 08:57 | CT ---
EXAMINATION TYPE: CT abdomen pelvis w con DATE OF EXAM: 01/07/2023 COMPARISON: 01/09/2019 HISTORY: AMS, Chest pain, SOB, PE CT DLP: 1099.3 mGycm CONTRAST: CT scan of the abdomen and pelvis is performed without Oral Contrast and with IV Contrast, patient in jected with 100 ml mL of Isovue 370. FINDINGS: LUNG BASES-: Small left-sided effusion with atelectasis seen. Hyperdense pericardial effusion suggest ing hemorrhagic content. NG tube coursing into the stomach. LIVER/GB: Fluid surrounds the gallbladder. No obvious cholelithiasis. No space occupying hepatic l esion. Biliary tree is of normal caliber. PANCREAS: No inflammation. No distinct mass. SPLEEN: No splenic enlargement. No lesion seen. ADRENALS: No nodule. No thickening. KIDNEYS/BLADDER: No hydronephrosis. No nephrolithiasis. No distinct renal mass. Urinary bladder g rossly unremarkable. Catheter is seen within the urinary bladder. BOWEL: Normal appendix. Normal bowel caliber. No inflammation. Scattered sigmoid diverticulosis wit hout diverticulitis. GENITAL ORGANS: No gross abnormality. LYMPH NODES: No greater than 1cm abdominal or pelvic lymph nodes are appreciated. AORTA: No significant abnormality. OSSEOUS STRUCTURES: No significant abnormality is seen. OTHER: No significant additional abnormality is seen. IMPRESSION: 1. Fluid surrounds the gallbladder however no obvious evidence for cholelithiasis on CT. Correlate cl inically and with ultrasound.
[2023-01-07] MEDS: BUDESONIDE 1 MG/2 ML NEBU INHALATION SCH ×2 (08:58→19:30)
[2023-01-07 08:59] LABS: Glucose,Whole Blood 294 mg/dL (70-110)
[2023-01-07] MEDS ORDERED: CHLORHEXIDINE GLUCONATE 15 ML CUP MUCOUS MEM SCH (09:00)
[2023-01-07] MEDS ORDERED: NOREPINEPHRIN 4 MG-0.9% NS PMX 4 MG/250 ML ML IV ONE (09:00)
[2023-01-07] MEDS ORDERED: RIVAROXABAN 2.5 MG TABLET PO SCH (09:00)
[2023-01-07] MEDS: FORMOTEROL FUMARATE 20 MCG/2 ML NEBU INHALATION SCH ×2 (09:32→19:30)
--- NOTE | 2023-01-07 09:43 | P.CNPUL ---
History of Present Illness Consult date: 01/07/23 Chief complaint: SOB History of present illness: This is an 87-year-old female patient who was transferred to the intensive care unit and upon arrival her blood pressure was in the 50s. Her current blood pressure is 116/94 after being given a bolus of 1 L. I had a emergency focal from the emergency department physician stating that the CAT scan that was obtained in the emergency was positive for aneurysmal dilatation and ascending aortic aneurysm. In addition to that, there is a moderate to large size pericardial effusion suggestive of hemorrhage/pericardial effusion. This was discussed apparently with Dr. Berg advocated the transfer of the patient to the intensive care unit for further care. I'm not sure if any of the surgical teams have been alerted thus far. The patient is known to have COPD, hypertension and chronic back pain. She presented emergency department complaining of back pain as well as difficult the breathing. The shortness of breath apparently has been going on for a few days and was worse on the day of admission. The patient was doing her breathing treatments but this was not successful. No nausea. No vomiting. No abdominal pain. No fever. In the emergency, the patient had increase work of breathing. She was intubated and placed on a mechanical ventilator. Post intubation CAT scan of the brain showed age-related atrophy. CT of the chest was discussed above and CAT scan of the abdomen showed fluid surrounding the gallbladder without obvious cholelithiasis. At this point in time, the patient is in the intensive care unit. She is on propofol running at 50 mcg/kg/m and fentanyl is running at 0.5 mcg/h. She is on assist-control mode of mechanical ventilation at the rate of 16, tidal volume of 400, FiO2 of 50% with a PEEP of 5. The delivery cigars at 15.1 with a hemoglobin of 12.6 and a platelet count of 253. Normal coagulation profile, BUN is 29 with a creatinine of 0.9 and his sodium level is at 138 and a potassium level of 4.9. Blood sugars at 294. Lactic acid level was at 2.6 and dropped down to 2.3. UA was negative. Influenza screen was negative and the vital screening was also negative. In terms of her COPD, FEV1 is in order of 59% of predicted. This is based on a previous lung function evaluation. Patient has also had previous history of Covid 19 infection back in 2021. Review of Systems ROS unobtainable: due to endotracheal tube Past Medical History Past Medical History: Asthma, COPD, GERD/Reflux, Hyperlipidemia, Hypertension, Pneumonia Additional Past Medical History / Comment(s): states pneumonia May 2018 and had 6 falls at that time (states legs just gave out), pt currently denies nay falls in the last 6 months. SOB with activity, Hx of kidney stone, states weight loss due to stomach pain- which has improved. History of Any Multi-Drug Resistant Organisms: None Reported Past Surgical History: Hysterectomy Past Anesthesia/Blood Transfusion Reactions: No Reported Reaction Past Psychological History: No Psychological Hx Reported Smoking Status: Never smoker - Past Family History Mother Family Medical History: Unable to Obtain Additional Family Medical History / Comment(s): Due to mental status Medications and Allergies Home Medications Medication Instructions Recorded Confirmed Type RX: predniSONE 10 mg PO DAILY 07/20/22 01/07/23 History RX: Budesonide/Formoterol Fumarate 2 puff INHALATION RT-BID 09/18/22 01/07/23 History [Symbicort 160-4.5 Mcg Inhaler] RX: Ipratropium-Albuterol Nebulize 3 ml INHALATION RT-QID 09/18/22 01/07/23 History [Duoneb 0.5 mg-3 mg/3 ml Soln] RX: Rivaroxaban [Xarelto] 2.5 mg PO DAILY 09/18/22 01/07/23 History Acetaminophen [Tylenol 8 Hour] 650 mg PO DAILY 01/07/23 01/07/23 History Allergies Allergy/AdvReac Type Severity Reaction Status Date / Time No Known Allergies Allergy Verified 01/07/23 08:43 Physical Exam Vitals: Vital Signs Temp Pulse Resp BP Pulse Ox FiO2 01/07/23 09:22 50 01/07/23 09:13 115 H 01/07/23 09:01 124 H 22 94/57 99 01/07/23 08:59 115 H 01/07/23 08:35 50 01/07/23 07:04 117 H 16 119/94 99 01/07/23 06:54 100 01/07/23 06:43 123 H 16 96/66 98 01/07/23 06:40 137 H 13 109/25 90 L 01/07/23 06:30 123 H 19 98 100 01/07/23 06:20 123 H 118/85 95 01/07/23 06:19 121 H 94/71 95 01/07/23 05:46 79 14 107/73 98 01/07/23 03:20 28 01/07/23 02:55 88 01/07/23 02:42 87 01/07/23 02:20 28 01/07/23 02:18 97 F L 95 24 119/87 97 Intake and Output 01/06/23 01/07/23 01/07/23 22:59 06:59 14:59 Other: Weight 63.503 kg Gen. appearance, the patient is calm and comfortable, currently intubated on a mechanical ventilator. Orogastric and orotracheal tube are both in place. Head exam was generally normal. There was no scleral icterus or corneal arcus. Mucous membranes were moist. Neck was supple and without jugular venous distension, thyromegaly, or carotid bruits. Carotids were easily palpable bilaterally. There was no adenopathy. Lungs sounds are diminished bilaterally with scattered Expiratory wheeze Heart sounds are distant, positive S1-S2, no significant murmurs appreciated. Abdominal exam revealed normal bowel sounds. The abdomen was soft, non-tender, and without masses, organomegaly, or appreciable enlargement of the abdominal aorta. Examination of the extremities There was no cyanosis, clubbing or edema. Pu lses in the lower exposure quite diminished neurologically the patient is sedated Results - Laboratory Findings CBC and BMP: 01/07/23 06:10 01/07/23 02:32 ABG ABG pH 7.16 (7.35-7.45) L* 01/07/23 07:32 ABG pCO2 42 mmHg (35-45) 01/07/23 07:32 ABG pO2 >400 mmHg (83-108) H 01/07/23 07:32 ABG O2 Saturation 100.0 % (94-97) H 01/07/23 07:32 PT/INR, D-dimer PT 10.2 sec (9.0-12.0) 01/07/23 04:54 INR 1.0 (<1.2) 01/07/23 04:54 Abnormal lab findings: Abnormal Labs 01/07/23 01/07/23 01/07/23 02:32 02:32 02:37 WBC Neutrophils # Lymphocytes # APTT ABG pH ABG pO2 ABG HCO3 ABG Total CO2 ABG O2 Saturation VBG pCO2 53 H BUN 29 H Glucose 146 H POC Glucose (mg/dL) Plasma Lactic Acid Jhonathan 2.6 H* Total Protein 5.8 L Urine Protein Ur Leukocyte Esterase Urine WBC Hyaline Casts 01/07/23 01/07/23 01/07/23 04:54 05:13 06:10 WBC 15.1 H Neutrophils # 14.4 H Lymphocytes # 0.3 L APTT 17.8 L ABG pH ABG pO2 ABG HCO3 ABG Total CO2 ABG O2 Saturation VBG pCO2 BUN Glucose POC Glucose (mg/dL) Plasma Lactic Acid Jhonathan 2.3 H* Total Protein Urine Protein Ur Leukocyte Esterase Urine WBC Hyaline Casts 01/07/23 01/07/23 01/07/23 06:16 06:19 07:32 WBC Neutrophils # Lymphocytes # APTT ABG pH 7.16 L* ABG pO2 >400 H ABG HCO3 15 L ABG Total CO2 16 L ABG O2 Saturation 100.0 H VBG pCO2 BUN Glucose POC Glucose (mg/dL) 202 H Plasma Lactic Acid Jhonathan Total Protein Urine Protein Trace H Ur Leukocyte Esterase Moderate H Urine WBC 10 H Hyaline Casts 3 H 01/07/23 08:58 WBC Neutrophils # Lymphocytes # APTT ABG pH ABG pO2 ABG HCO3 ABG Total CO2 ABG O2 Saturation VBG pCO2 BUN Glucose POC Glucose (mg/dL) 294 H Plasma Lactic Acid Jhonathan Total Protein Urine Protein Ur Leukocyte Esterase Urine WBC Hyaline Casts - Diagnostic Findings Chest x-ray: image reviewed CT scan - chest: image reviewed Assessment and Plan Plan: Acute hypoxic respiratory failure, currently intubated on a mechanical ventilator Ascending aortic aneurysm with possible dissection. CTA of the chest was of a poor contrast. Nevertheless, there is clear signs of aortic dissection and a moderate-sized pericardial effusion which could be hemorrhagic pericardial effus ion Acute hypotension secondary to above COPD Back pain, acute, likely secondary to above in this patient with some shortness of breath Hypertension Hyperlipidemia Acid reflux Previous history of Covid 19 pneumonia Plan Continue ventilator support, increase a respiratory rate up to 24 and dropped FiO2 down to 50% Continue IV fluids and the patient is currently on normal saline at the rate of 100 mL an hour. The patient was given a bolus of 1 L of fluid and she improved and she is not requiring any pressors at this point in time. No urine output at this point in time Troponins has not been checked Echocardiogram this still pending Hemoglobin is currently at 12.6 Blood pressure has improved with fluid bolus. No pressors yet. The patient will need a stat echocardiogram and another CT angiogram to evaluate the ascending aortic aneurysm and the likelihood of dissection with is very highly likely at this point in time based on the previous CAT scan findings There is a very poor prognosis We will alert the vascular and the cardiac vascular surgeons We'll have a discussion with the family in light of what we know We'll make further recommendations accordingly. Time with Patient: Greater than 30
[2023-01-07] MEDS: methylPREDNISolone SOD SUCCI 125 MG/2 ML VIAL IV SCH ×2 (10:05→16:56)
[2023-01-07] MEDS ORDERED: NOREPINEPHRINE 4 MG in SODIUM CHLORIDE 0.9% 250 ML IV SCH (10:15)
--- NOTE | 2023-01-07 10:32 | P.GSCN ---
History of Present Illness Consult date: 01/07/23 Reason for Consult: Ascending aortic dissection with pericardial effusion Requesting physician: Mar Miller History of present illness: This is an 87-year-old female who follows outpatient with Dr. Antunez. 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 She presented to [facility] emergency room early this morning with complaints of progressive shortness of breath which she attributed to her asthma but which was unsuccessfully treated with breathing treatments. She also had some complaints of back pain, however the patient and family did not find this significant as she has a history of chronic back pain and has been assisting with moving boxes and sleeping on the couch lately. When she presented to the emergency room she was on room air with oxygen saturation 97%. She continued with difficulty breathing and was eventually placed on BiPAP, however this was unsuccessful and she was intubated and admitted to the intensive care unit. Lab work revealed a CBC 15.1, BUN 29, creatinine 0.95, lactic acid 2.6. Multiple x- rays and CTs were completed in the emergency room, including a chest CTA which demonstrated no pulmonary embolism, however there appeared to be an ascending aortic aneurysmal dilatation with possible dissection as well as moderate to large pericardial effusion. Unfortunately the patient takes Xarelto and likely had her dose yesterday. Upon admittance to the intensive care unit her blood pressure was very hypotensive with systolic in the 50s and she was given 1 L fluid bolus with some improvement in her blood pressure. She was immediately seen at the bedside by Dr. Miller who consulted cardiothoracic surgery. Review of Systems Review of systems was completed and is negative except as noted. ROS was obtained from family as the patient is intubated - Constitutional Reports chronic pain - Respiratory Reports dyspnea - Musculoskeletal Reports low back pain Past Medical History Past Medical History: Asthma, COPD, GERD/Reflux, Hyperlipidemia, Hypertension, Pneumonia, Pulmonary Embolus (PE) Additional Past Medical History / Comment(s): states pneumonia May 2018 and had 6 falls at that time (states legs just gave out), pt currently denies nay falls in the last 6 months. SOB with activity, Hx of kidney stone, states weight loss due to stomach pain- which has improved.covid in 2021 History of Any Multi-Drug Resistant Organisms: None Reported Past Surgical History: Hysterectomy Past Anesthesia/Blood Transfusion Reactions: No Reported Reaction Past Psychological History: No Psychological Hx Reported Smoking Status: Never smoker - Past Family History Mother Family Medical History: Unable to Obtain Additional Family Medical History / Comment(s): Due to mental status Medications and Allergies Home Medications Medication Instructions Recorded Confirmed Type predniSONE 10 mg PO DAILY 07/20/22 01/07/23 History Budesonide/Formoterol Fumarate 2 puff INHALATION RT-BID 09/18/22 01/07/23 History [Symbicort 160-4.5 Mcg Inhaler] Ipratropium-Albuterol Nebulize 3 ml INHALATION RT-QID 09/18/22 01/07/23 History [Duoneb 0.5 mg-3 mg/3 ml Soln] Rivaroxaban [Xarelto] 2.5 mg PO DAILY 09/18/22 01/07/23 History Acetaminophen [Tylenol 8 Hour] 650 mg PO DAILY 01/07/23 01/07/23 History Allergies Allergy/AdvReac Type Severity Reaction Status Date / Time No Known Allergies Allergy Verified 01/07/23 08:43 Surgical - Exam Vital Signs Temp Pulse Resp BP Pulse Ox 97 F L 95 24 119/87 97 01/07/23 02:18 01/07/23 02:18 01/07/23 02:18 01/07/23 02:18 01/07/23 02:18 CONSTITUTIONAL: Currently chemically ventilated, sedated EYES: Pupils equal, round, reactive to light, normal ocular movement ENT: Moist mucous membranes without oral lesions present NECK: No masses, no bruits, trachea midline RESPIRATORY: Lungs sounds diminished bilaterally. Respirations even, nonlabored on mechanical ventilation. Current settings assist control mode, FiO2 50%, PEEP 5, respiratory rate 24, tidal volume 400. 7.5 ET tube present, 26 at the lip CARDIOVASCULAR: S1, S2 present. Tachy but regular rate and rhythm, sinus tach on telemetry. Palpable peripheral pulses bilaterally. No edema present. GASTROINTESTINAL: Abdomen soft, nontender, nondistended without masses or organomegaly noted. There is no rebound or guarding present. Active bowel sounds present 4 quadrants. OG tube present with intermittent suction GENITOURINARY: Farrar present with no urine output INTEGUMENTARY: Skin is warm and dry, very thin, cyanosis present to her upper chest, multiple bruises present NEUROLOGIC: Currently sedated on mechanical ventilation Results - Labs 01/07/23 06:10 01/07/23 02:32 Abnormal Lab Results - Last 24 Hours (Table) 01/07/23 01/07/23 01/07/23 Range/Units 02:32 02:32 02:37 WBC (3.8-10.6) k/uL Neutrophils # (1.3-7.7) k/uL Lymphocytes # (1.0-4.8) k/uL APTT (22.0-30.0) sec ABG pH (7.35-7.45) ABG pO2 (83-108) mmHg ABG HCO3 (21-25) mmol/L ABG Total CO2 (19-24) mmol/L ABG O2 Saturation (94-97) % VBG pCO2 53 H (37-51) mmHg BUN 29 H (7-17) mg/dL Glucose 146 H (74-99) mg/dL POC Glucose (mg/dL) (70-110) mg/dL Plasma Lactic Acid Jhonathan 2.6 H* (0.7-2.0) mmol/L Total Protein 5.8 L (6.3-8.2) g/dL Urine Protein (Negative) Ur Leukocyte Esterase (Negative) Urine WBC (0-5) /hpf Hyaline Casts (0-2) /lpf 01/07/23 01/07/23 01/07/23 Range/Units 04:54 05:13 06:10 WBC 15.1 H (3.8-10.6) k/uL Neutrophils # 14.4 H (1.3-7.7) k/uL Lymphocytes # 0.3 L (1.0-4.8) k/uL APTT 17.8 L (22.0-30.0) sec ABG pH (7.35-7.45) ABG pO2 (83-108) mmHg ABG HCO3 (21-25) mmol/L ABG Total CO2 (19-24) mmol/L ABG O2 Saturation (94-97) % VBG pCO2 (37-51) mmHg BUN (7-17) mg/dL Glucose (74-99) mg/dL POC Glucose (mg/dL) (70-110) mg/dL Plasma Lactic Acid Jhonathan 2.3 H* (0.7-2.0) mmol/L Total Protein (6.3-8.2) g/dL Urine Protein (Negative) Ur Leukocyte Esterase (Negative) Urine WBC (0-5) /hpf Hyaline Casts (0-2) /lpf 01/07/23 01/07/23 01/07/23 Range/Units 06:16 06:19 07:32 WBC (3.8-10.6) k/uL Neutrophils # (1.3-7.7) k/uL Lymphocytes # (1.0-4.8) k/uL APTT (22.0-30.0) sec ABG pH 7.16 L* (7.35-7.45) ABG pO2 >400 H (83-108) mmHg ABG HCO3 15 L (21-25) mmol/L ABG Total CO2 16 L (19-24) mmol/L ABG O2 Saturation 100.0 H (94-97) % VBG pCO2 (37-51) mmHg BUN (7-17) mg/dL Glucose (74-99) mg/dL POC Glucose (mg/dL) 202 H (70-110) mg/dL Plasma Lactic Acid Jhonathan (0.7-2.0) mmol/L Total Protein (6.3-8.2) g/dL Urine Protein Trace H (Negative) Ur Leukocyte Esterase Moderate H (Negative) Urine WBC 10 H (0-5) /hpf Hyaline Casts 3 H (0-2) /lpf 01/07/23 Range/Units 08:58 WBC (3.8-10.6) k/uL Neutrophils # (1.3-7.7) k/uL Lymphocytes # (1.0-4.8) k/uL APTT (22.0-30.0) sec ABG pH (7.35-7.45) ABG pO2 (83-108) mmHg ABG HCO3 (21-25) mmol/L ABG Total CO2 (19-24) mmol/L ABG O2 Saturation (94-97) % VBG pCO2 (37-51) mmHg BUN (7-17) mg/dL Glucose (74-99) mg/dL POC Glucose (mg/dL) 294 H (70-110) mg/dL Plasma Lactic Acid Jhonathan (0.7-2.0) mmol/L Total Protein (6.3-8.2) g/dL Urine Protein (Negative) Ur Leukocyte Esterase (Negative) Urine WBC (0-5) /hpf Hyaline Casts (0-2) /lpf Diabetes panel 01/07/23 Range/Units 02:32 Sodium 138 (137-145) mmol/L Potassium 4.9 (3.5-5.1) mmol/L Chloride 106 (98-107) mmol/L Carbon Dioxide 27 (22-30) mmol/L BUN 29 H (7-17) mg/dL Creatinine 0.95 (0.52-1.04) mg/dL Glucose 146 H (74-99) mg/dL Calcium 8.7 (8.4-10.2) mg/dL AST 26 (14-36) U/L ALT 18 (4-34) U/L Alkaline Phosphatase 73 (38-126) U/L Total Protein 5.8 L (6.3-8.2) g/dL Albumin 3.6 (3.5-5.0) g/dL Calcium panel 01/07/23 Range/Units 02:32 Calcium 8.7 (8.4-10.2) mg/dL Albumin 3.6 (3.5-5.0) g/dL Pituitary panel 01/07/23 Range/Units 02:32 Sodium 138 (137-145) mmol/L Potassium 4.9 (3.5-5.1) mmol/L Chloride 106 (98-107) mmol/L Carbon Dioxide 27 (22-30) mmol/L BUN 29 H (7-17) mg/dL Creatinine 0.95 (0.52-1.04) mg/dL Glucose 146 H (74-99) mg/dL Calcium 8.7 (8.4-10.2) mg/dL Adrenal panel 01/07/23 Range/Units 02:32 Sodium 138 (137-145) mmol/L Potassium 4.9 (3.5-5.1) mmol/L Chloride 106 (98-107) mmol/L Carbon Dioxide 27 (22-30) mmol/L BUN 29 H (7-17) mg/dL Creatinine 0.95 (0.52-1.04) mg/dL Glucose 146 H (74-99) mg/dL Calcium 8.7 (8.4-10.2) mg/dL Total Bilirubin 1.1 (0.2-1.3) mg/dL AST 26 (14-36) U/L ALT 18 (4-34) U/L Alkaline Phosphatase 73 (38-126) U/L Total Protein 5.8 L (6.3-8.2) g/dL Albumin 3.6 (3.5-5.0) g/dL - Imaging Chest x-ray: report reviewed, image reviewed CT scan - chest: report reviewed, image reviewed EKG: image reviewed Assessment and Plan Assessment: Ascending aortic aneurysmal dilatation with possible dissection Moderate to large pericardial effusion on CTA Acute hypoxic respiratory failure requiring mechanical ventilation Acute hypotension Lactic acidosis, metabolic acidosis History of asthma, COPD 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 Miller. Case was discussed with Dr. Burnett. All diagnostics were reviewed. This diagnosis carries a very high rate of mortality therefore recommendations were made for comfort care. Alternatively the patient could be transferred to a tertiary care center for high risk surgery if a cardiac surgeon could be found who would be willing to perform surgery. This was discussed in detail with the patient's family including her power of collections attorney. They verbalized understanding and would like to think about their options, they're bringing the patient's to the hospital. Continue mechanical ventilator, blood pressure management through Dr. Miller. Appreciate cardiology recommendations. Medical management of other comorbidities per internal medicine. Very poor prognosis unfortunately. I have personally seen and examined the patient, performed the documentation and the assessment and plan as written. Number of minutes spent on the visit: 30. Dagmar Means, ROMARIO-C
[2023-01-07 13:48] VITALS: TEMP 98
[2023-01-07] MEDS ORDERED: LORazepam 2 MG/ML INJ IV PRN (13:49)
[2023-01-07] MEDS ORDERED: MORPHINE SULFATE 4 MG/ML SYRINGE IV PRN (13:49)
[2023-01-07] MEDS ORDERED: ATROPINE OPHTH SOLN 1% 5ML BTL SUBLINGUAL PRN (13:49)
[2023-01-07] MEDS ORDERED: MORPHINE SULFATE 2 MG/ML SYRINGE IV PRN (13:49)
[2023-01-07] MEDS ORDERED: SCOPOLAMINE 1 MG/72 HR PATCH TRANSDERM SCH (14:00)
--- NOTE | 2023-01-07 14:40 | P.HPIM ---
History of Present Illness H&P Date: 01/07/23 This is an 87 year old female with medical history of asthma/COPD, hypertension, hyperlipidemia, pneumonia and prior PE/DVT patient has been anticoagulated with xarelto. Patient has known history of thyroid nodules and also ectasia of the ascending aorta last imaged in 2020 at 4.1 cm. Patient presents to the hospital with progressive shortness of breath over the last few days. Patient has been using home breathing treatments which did not help. Patient does have chronic back pain as well. Brought in by EMS for back pain and shortness of breath and what patient and family thought to be was asthma exacerbation. Initial work up reveals lactic acid of 2.6. ABGs done showing pH of 7.6 and pO2 of greater than 400. Patient was placed on BiPAP and did require intubation currently on 100% FiO2 and is admitted to intensive care unit. CT brain showing age related atrophic and chronic small vessel ischemic change without acute intracranial process. CT angiography completed to rule out pulmonary embolism showing no evidence for pulmonary embolism. There is aneurysmal dilation of a poorly opacified ascending thoracic aorta given PE protocol however portions of the wall appear to be ill-defined. In addition there is hyperdense pericardial effusion suggesting hemorrhagic content. Leaking aneurysm not excluded. 4.5 cm AP diameter. This was communicated as red critical finding. Vascular services and cardiology consulted, echocardiogram ordered. Discussed with pulmonary ORDER PLANNER and pulmonary patch driller evaluated patient at bedside immediately and consulted cardiothoracic services. There is likely ascending aortic dissection. Patient will require transfer to tertiary care center for high risk surgery given advanced age and multiple other medical comorbidities. Patient is evaluated in the intensive care unit currently intubated and sedated, patient was hypotensive with systolic blood pressure of 50s on presentation to the ICU which improved with IV fluids and bolus. This is discussed with patients who has been brought to the hospital by family and patients power of trade mark attorney. They are deciding on comfort care measures. Patient will continue to be monitored in intensive care unit pending family decision. Unable to complete review of systems patient is currently intubated and sedated in intensive care unit. PHYSICAL EXAMINATION: GENERAL: Patient is currently sedated and intubated , not in any acute distress. Well developed, well nourished. HEENT: Pupils are round and equally reacting to light. EOMI. No scleral icterus. No conjunctival pallor. Normocephalic, atraumatic. No pharyngeal erythema. No thyromegaly. CARDIOVASCULAR: S1 and S2 present. No murmurs, rubs, or gallops. PULMONARY: Lung sounds are diminished with scattered wheezing ABDOMEN: Soft, nontender, nondistended, normoactive bowel sounds. No palpable organomegaly. MUSCULOSKELETAL: No joint swelling or deformity. EXTREMITIES: No cyanosis, clubbing, or pedal edema. NEUROLOGICAL: Unable to complete neurological exam patient is sedated SKIN: No rashes. 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 Acute hypotension and shock requiring vasopressor support History of asthma/COPD History of hypertension History of hyperlipidemia History of PE/DVT anticoagulated with xarelto Gerd GI prophylaxis DVT prophylaxis Full code Plan Patient is monitored closely in intensive care unit on mechanical ventilator per patch driller Vascular and likely CT consultation Patient is high risk for surgery and will need transfer to tertiary care if family decides on surgery vs. comfort care Discussed with patients family and at bedside Overall poor prognosis The impression and plan of care has been dictated by Sofia Simental Nurse Practitioner as directed. Dr. Celeste MD I have performed a history and physical examination and medical decision making of this patient, discussed the same with the dictator, and agree with the dictators assessment and plan as written, documented as a scribe. Based on total visit time, I have performed more than 50% of this visit. Past Medical History Past Medical History: Asthma, COPD, GERD/Reflux, Hyperlipidemia, Hypertension, Pneumonia Additional Past Medical History / Comment(s): states pneumonia May 2018 and had 6 falls at that time (states legs just gave out), pt currently denies nay falls in the last 6 months. SOB with activity, Hx of kidney stone, states weight loss due to stomach pain- which has improved. History of Any Multi-Drug Resistant Organisms: None Reported Past Surgical History: Hysterectomy Past Anesthesia/Blood Transfusion Reactions: No Reported Reaction Past Psychological History: No Psychological Hx Reported Smoking Status: Never smoker - Past Family History Mother Family Medical History: Unable to Obtain Additional Family Medical History / Comment(s): Due to mental status Medications and Allergies Home Medications Medication Instructions Recorded Confirmed Type predniSONE 10 mg PO DAILY 07/20/22 01/07/23 History Budesonide/Formoterol Fumarate 2 puff INHALATION RT-BID 09/18/22 01/07/23 History [Symbicort 160-4.5 Mcg Inhaler] Ipratropium-Albuterol Nebulize 3 ml INHALATION RT-QID 09/18/22 01/07/23 History [Duoneb 0.5 mg-3 mg/3 ml Soln] Rivaroxaban [Xarelto] 2.5 mg PO DAILY 09/18/22 01/07/23 History Acetaminophen [Tylenol 8 Hour] 650 mg PO DAILY 01/07/23 01/07/23 History Allergies Allergy/AdvReac Type Severity Reaction Status Date / Time No Known Allergies Allergy Verified 01/07/23 08:43 Physical Exam Vitals: Vital Signs Temp Pulse Resp BP Pulse Ox FiO2 01/07/23 09:33 50 01/07/23 09:27 115 H 01/07/23 09:22 50 01/07/23 09:13 115 H 01/07/23 09:01 124 H 22 94/57 99 01/07/23 08:59 115 H 01/07/23 08:35 50 01/07/23 07:04 117 H 16 119/94 99 01/07/23 06:54 100 01/07/23 06:43 123 H 16 96/66 98 01/07/23 06:40 137 H 13 109/25 90 L 01/07/23 06:30 123 H 19 98 100 01/07/23 06:20 123 H 118/85 95 01/07/23 06:19 121 H 94/71 95 01/07/23 05:46 79 14 107/73 98 01/07/23 03:20 28 01/07/23 02:55 88 01/07/23 02:42 87 01/07/23 02:20 28 01/07/23 02:18 97 F L 95 24 119/87 97 Intake and Output 01/06/23 01/07/23 01/07/23 22:59 06:59 14:59 Other: Weight 63.503 kg Results CBC & Chem 7: 01/07/23 06:10 01/07/23 02:32 Labs: Abnormal Lab Results - Last 24 Hours (Table) 01/07/23 01/07/23 01/07/23 Range/Units 02:32 02:32 02:37 WBC (3.8-10.6) k/uL Neutrophils # (1.3-7.7) k/uL Lymphocytes # (1.0-4.8) k/uL APTT (22.0-30.0) sec ABG pH (7.35-7.45) ABG pO2 (83-108) mmHg ABG HCO3 (21-25) mmol/L ABG Total CO2 (19-24) mmol/L ABG O2 Saturation (94-97) % VBG pCO2 53 H (37-51) mmHg BUN 29 H (7-17) mg/dL Glucose 146 H (74-99) mg/dL POC Glucose (mg/dL) (70-110) mg/dL Plasma Lactic Acid Jhonathan 2.6 H* (0.7-2.0) mmol/L Total Protein 5.8 L (6.3-8.2) g/dL Urine Protein (Negative) Ur Leukocyte Esterase (Negative) Urine WBC (0-5) /hpf Hyaline Casts (0-2) /lpf 01/07/23 01/07/23 01/07/23 Range/Units 04:54 05:13 06:10 WBC 15.1 H (3.8-10.6) k/uL Neutrophils # 14.4 H (1.3-7.7) k/uL Lymphocytes # 0.3 L (1.0-4.8) k/uL APTT 17.8 L (22.0-30.0) sec ABG pH (7.35-7.45) ABG pO2 (83-108) mmHg ABG HCO3 (21-25) mmol/L ABG Total CO2 (19-24) mmol/L ABG O2 Saturation (94-97) % VBG pCO2 (37-51) mmHg BUN (7-17) mg/dL Glucose (74-99) mg/dL POC Glucose (mg/dL) (70-110) mg/dL Plasma Lactic Acid Jhonathan 2.3 H* (0.7-2.0) mmol/L Total Protein (6.3-8.2) g/dL Urine Protein (Negative) Ur Leukocyte Esterase (Negative) Urine WBC (0-5) /hpf Hyaline Casts (0-2) /lpf 01/07/23 01/07/23 01/07/23 Range/Units 06:16 06:19 07:32 WBC (3.8-10.6) k/uL Neutrophils # (1.3-7.7) k/uL Lymphocytes # (1.0-4.8) k/uL APTT (22.0-30.0) sec ABG pH 7.16 L* (7.35-7.45) ABG pO2 >400 H (83-108) mmHg ABG HCO3 15 L (21-25) mmol/L ABG Total CO2 16 L (19-24) mmol/L ABG O2 Saturation 100.0 H (94-97) % VBG pCO2 (37-51) mmHg BUN (7-17) mg/dL Glucose (74-99) mg/dL POC Glucose (mg/dL) 202 H (70-110) mg/dL Plasma Lactic Acid Jhonathan (0.7-2.0) mmol/L Total Protein (6.3-8.2) g/dL Urine Protein Trace H (Negative) Ur Leukocyte Esterase Moderate H (Negative) Urine WBC 10 H (0-5) /hpf Hyaline Casts 3 H (0-2) /lpf 01/07/23 Range/Units 08:58 WBC (3.8-10.6) k/uL Neutrophils # (1.3-7.7) k/uL Lymphocytes # (1.0-4.8) k/uL APTT (22.0-30.0) sec ABG pH (7.35-7.45) ABG pO2 (83-108) mmHg ABG HCO3 (21-25) mmol/L ABG Total CO2 (19-24) mmol/L ABG O2 Saturation (94-97) % VBG pCO2 (37-51) mmHg BUN (7-17) mg/dL Glucose (74-99) mg/dL POC Glucose (mg/dL) 294 H (70-110) mg/dL Plasma Lactic Acid Jhonathan (0.7-2.0) mmol/L Total Protein (6.3-8.2) g/dL Urine Protein (Negative) Ur Leukocyte Esterase (Negative) Urine WBC (0-5) /hpf Hyaline Casts (0-2) /lpf Assessment and Plan Time with Patient: Greater than 30
[2023-01-07] MEDS: MORPHINE SULFATE (100 MG/2 ML) 100 MG in SODIUM CHLORIDE 0.9% 100 ML IV SCH ×2 (14:46→20:32)
[2023-01-07 16:12] VITALS: BP 86/65
[2023-01-07] MEDS ORDERED: methylPREDNISolone SOD SUCCI 40 MG/ML 1 ML VIAL IV SCH (21:00)
[2023-01-08 01:51] VITALS: PULSE 109; RESP 5
--- NOTE | 2023-01-08 10:23 | CA ---
Transthoracic Echo Report Name: Mariama Alford Age: 87 Gender: F : 1935 Exam Date: 01/07/2023 11:32 Exam Location: [facility] Ht (in): 61 Wt (lb): 140 Ordering Physician: Ilda Paredes Attending/Referring Phys: Instrument Specialist Ted Hills RDCS Procedure CPT: Indications: pericardial effusion ??hemorrhagic Cardiac Hx: Technical Quality: Very technically difficult study Contrast 1: Total Dose (mL): Contrast 2: Total Dose (mL): MEASUREMENTS (Male / Female) Normal Values M-MODE Aortic Root Diameter MM 3.0 cm AV Cusp Separation MM 0.9 cm DOPPLER AV Peak Velocity 115.4 cm/s AV Peak Gradient 5.3 mmHg LVOT Peak Velocity 37.0 cm/s LVOT Peak Gradient 0.5 mmHg TR Peak Velocity 138.6 cm/s TR Peak Gradient 7.7 mmHg Right Atrial Pressure 15.0 mmHg Pulmonary Artery Systolic Pressu 22.7 mmHg Right Ventricular Systolic Press 22.7 mmHg FINDINGS Left Ventricle Severe concentric left ventricular hypertrophy. Left ventricular ejection fraction is visually estimated at less than 45-50 %. Right Ventricle Right ventricular hypertrophy. Severely reduced right ventricular global systolic function. Right Atrium Right atrial dilatation. Left Atrium Left atrial dilatation. Mitral Valve Mitral annular calcification Aortic Valve Trileaflet aortic valve. Aortic valve sclerosis. Tricuspid Valve Tricuspid valve not well visualized. Pulmonic Valve Pulmonic valve not well visualized. Pericardium Large pericardial effusion with fibrous material. No evidence of tamponade physiology Aorta Ascending aorta aneurysm measuring 5.3cm. CONCLUSIONS Technically difficult study Severe left ventricular hypertrophy Left ventricular ejection fraction 45-50% Large pericardial effusion with fibrous material, no tamponade physiology Ascending aortic aneurysm measuring 5.3 cm, cannot exclude dissection Previewed by: Dr. Pablo Bates DO (Electronically Signed) Final Date: 08 January 2023 10:22
--- NOTE | 2023-01-09 17:19 | P.DS ---
Providers Date of admission: 01/07/23 04:27 Attending physician: Josh Rodríguez Consults: 01/07/23 04:25 Consult Physician Routine Consulting Provider: Jamin Berg Consult Reason/Comments: asthma, hypoxic respiratory failure on bipap Do you want consulting provider notified?: Yes 01/07/23 09:08 Consult Physician Urgent Consulting Provider: Onel Polanco Consult Reason/Comments: pericardial effusion, ??hemorrhagic, leaking thor aneur Do you want consulting provider notified?: Yes 01/07/23 09:31 Consult Physician Stat Consulting Provider: Tod Burnett Consult Reason/Comments: ascending dissection with pericardial effusion Do you want consulting provider notified?: Yes Primary care physician: Janet Tulio [place] Hospital Course: Final Diagnosis Shortness of breath and acute back Dissection ascending aortic aneurysm Acute hypoxic respiratory failure patient is intubated in the intensive care unit on 100% FiO2 Ascending aortic aneurysm with possible dissection and possible hemorrhagic pericardial effusion. Acute hypotension and shock requiring vasopressor support History of asthma/COPD History of hypertension History of hyperlipidemia History of PE/DVT anticoagulated with xarelto Gerd Do Not Resuscitate/Do Not Intubate Patient on 01/08/2023 at 02:02 in the intensive care unit. Hospital Course This is an 87 year old female with medical history of asthma/COPD, hypertension, hyperlipidemia, pneumonia and prior PE/DVT patient has been anticoagulated with xarelto. Patient presents to the hospital with progressive shortness of breath over the last few days. Patient has been using home breathing treatments which did not help. Patient does have chronic back pain as well. Brought in by EMS for back pain and shortness of breath and what patient and family thought to be asthma exacerbation. Patient had CT angiography which is negative for PE and reveals aneurysmal dilation of a poorly opacified ascending thoracic aorta given PE protocol however portions of the wall appear to be ill-defined. In addition there is hyperdense pericardial effusion suggesting hemorrhagic content. Leaking aneurysm not excluded. 4.5 cm AP diameter. This was communicated as red critical finding. There is likely ascending aortic dissection. Patient was placed on BiPAP and did require intubation currently on 100% FiO2 and is admitted to intensive care unit. Patient was hypotensive with systolic blood pressure of 50s on presentation to the ICU which improved with IV fluids and bolus. Light Rail Train Operator and cardiothoracic surgery evaluate the patient. Patient will require transfer to tertiary care center for high risk surgery given advanced age and multiple other medical comorbidities. This is discussed with family at bedside. They decided on comfort care measures. Patient remained in the ICU. Patient on 01/08/2023 at 02:02. Thank you for allowing us to participate in the care of this patient. The impression and plan of care has been dictated by Sofia Simental, Nurse Practitioner as directed. Dr. Celeste MD I have performed a history and physical examination and medical decision making of this patient, discussed the same with the dictator, and agree with the dictators assessment and plan as written, documented as a scribe. Based on total visit time, I have performed more than 50% of this visit. Plan - Discharge Summary Discharge Rx Participant: No New Discharge Prescriptions: No Action Budesonide/Formoterol Fumarate [Symbicort 160-4.5 Mcg Inhaler] 2 puff INHALA TION RT-BID Ipratropium-Albuterol Nebulize [Duoneb 0.5 mg-3 mg/3 ml Soln] 3 ml INHALATION RT-QID Rivaroxaban [Xarelto] 2.5 mg PO DAILY predniSONE 10 mg PO DAILY Acetaminophen [Tylenol 8 Hour] 650 mg PO DAILY Discharge Medication List predniSONE 10 mg PO DAILY 07/20/22 [History] Budesonide/Formoterol Fumarate [Symbicort 160-4.5 Mcg Inhaler] 2 puff INHALATION RT-BID 09/18/22 [History] Ipratropium-Albuterol Nebulize [Duoneb 0.5 mg-3 mg/3 ml Soln] 3 ml INHALATION RT-QID 09/18/22 [History] Rivaroxaban [Xarelto] 2.5 mg PO DAILY 09/18/22 [History] Acetaminophen [Tylenol 8 Hour] 650 mg PO DAILY 01/07/23 [History] Follow up Appointment(s)/Referral(s): Janet Antunez MD [Primary Care Provider] - 1-2 days Discharge Disposition: - Preliminary Cause of Preliminary Cause of : Ascending aortic aneurysmal dilation /dissection
== END 2023-01-08 04:48 | disposition expired | DRG 299 ==
LOC: EC 02:16 → 3SCARD 04:27 → 2SICU 06:37
PROVIDERS: ADMIT Hospitalist; ATTEND Hospitalist
PROC: 5A1935Z Respiratory Ventilation, Less than 24 Consecutive Hours (ICD-10-PCS; principal; 2023-01-07)
PROC: 0BH17EZ Insertion of Endotracheal Airway into Trachea, Via Natural or Artificial Opening (ICD-10-PCS; principal; 2023-01-07)
PROC: 5A09357 Assistance with Respiratory Ventilation, Less than 24 Consecutive Hours, Continuous Positive Airway Pressure (ICD-10-PCS; 2023-01-07)
PROC: 3E043XZ Introduction of Vasopressor into Central Vein, Percutaneous Approach (ICD-10-PCS; 2023-01-07)
PROC: 0D9670Z Drainage of Stomach with Drainage Device, Via Natural or Artificial Opening (ICD-10-PCS; 2023-01-07)
DX: I71.010 Dissection of ascending aorta (principal); J96.01 Acute respiratory failure with hypoxia; J96.02 Acute respiratory failure with hypercapnia; I31.39 Other pericardial effusion (noninflammatory); J45.901 Unspecified asthma with (acute) exacerbation; N39.0 Urinary tract infection, site not specified; R57.9 Shock, unspecified; E87.20 Acidosis, unspecified; E86.0 Dehydration; G89.29 Other chronic pain; I10 Essential (primary) hypertension; E78.5 Hyperlipidemia, unspecified; Z51.5 Encounter for palliative care; Z66 Do not resuscitate; Z86.16 Personal history of COVID-19; K21.9 Gastro-esophageal reflux disease without esophagitis; M54.9 Dorsalgia, unspecified; E04.1 Nontoxic single thyroid nodule; R29.6 Repeated falls; R63.4 Abnormal weight loss; Z20.822 Contact with and (suspected) exposure to COVID-19; Z79.01 Long term (current) use of anticoagulants; Z79.51 Long term (current) use of inhaled steroids; Z86.711 Personal history of pulmonary embolism; Z86.718 Personal history of other venous thrombosis and embolism; Z68.26 Body mass index [BMI] 26.0-26.9, adult; Z87.01 Personal history of pneumonia (recurrent); Z91.81 History of falling; Z87.442 Personal history of urinary calculi
CPT/HCPCS: 31500; 36415; 36600; 51702; 70450; 71045; 71275; 72020; 74177; 80053; 81001; 82803; 82805; 83605; 83735; 85025; 85610; 85730; 87636; 93005; 93306; 94002; 94640; 94660; 96361; 96365; 96367; 96375; 99291; 99292